=== PATIENT | female | born 1935 | race Two or more races ===

== ENCOUNTER 2021-09-07 07:24 | Inpatient (IN) | payer MEDICARE, MEDICAID ==
[~2021-09-07] VITALS: Ht 162.6 cm; Wt 64.7 kg
[2021-09-07 08:10] LABS: Basophils # (auto) 0.1 10 ^3/uL (0-0.2); Basophils % (auto) 0.7 % (0.0-2.0); Eosinophils # (auto) 0 10 ^3/uL (0-0.8); Eosinophils % (auto) 0.1 % (0.0-7.0); Hematocrit 39.5 % (36.0-46.0); Hemoglobin 13.4 g/dL (12.2-16.2); Lymphocytes % (auto) 12.2 % (10.0-50.0); Mean Corpuscular Hemoglobin 30.6 pg (28.0-32.0); Mean Corpuscular Hgb Conc. 33.9 g/dL (32.0-36.0); Mean Corpuscular Volume 90.2 fL (80.0-100.0); Monocytes % (auto) 12.1 % (0.0-12.0); Neutrophils % (auto) 74.9 % (37.0-80.0); Nucleated Red Blood Cells % 0.1 %; Red Blood Cells 4.37 10^6/uL (4.0-5.20); Red Cell Distribution Width 13.4 % (11.8-14.3)
[2021-09-07 08:27] LABS: Albumin 3.4 g/dL (3.4-5.0); Calcium 7.9 mg/dL (8.5-10.1); Potassium 3.7 mmol/L (3.5-5.1)
[2021-09-07 08:30] LABS: BUN/Creatinine Ratio 14.7; Bilirubin, Total 0.3 mg/dL (0.2-1.0); Total Protein 7.4 g/dL (6.4-8.2)
[2021-09-07] MEDS ORDERED: methylPREDNISolone SOD SUCC 125 MG/2 ML VL IV ONE (09:45)
[2021-09-07] MEDS ORDERED: ALBUTEROL SULF 2.5 MG/0.5ML(0.5%) NEB SOLN NEB ONE (09:45)
[2021-09-07] MEDS ORDERED: IPRATROPIUM BROM 0.5 MG/2.5ML INH SOL NEB ONE (09:45)
[2021-09-07] MEDS ORDERED: IOHEXOL 350 MG/ML 100ML IJ ONE (09:55)
[2021-09-07] MEDS ORDERED: guaiFENesin 200 MG/10 ML UD GT PRN (11:00)
[2021-09-07] MEDS ORDERED: NITROGLYCERIN 0.4 MG SL TAB SL PRN (11:00)
[2021-09-07] MEDS ORDERED: DEXTROSE (50%) 50ML SYRG IV PRN (11:00)
[2021-09-07] MEDS ORDERED: cefTRIAXone 1GM/50ML D5W 50 ML IV ONE (11:00)
[2021-09-07] MEDS ORDERED: ALBUTEROL SULF 2.5 MG/0.5ML(0.5%) NEB SOLN NEB PRN (11:00)
[2021-09-07] MEDS ORDERED: AZITHROMYCIN 500MG/ 250ML 250 ML IV ONE (11:00)
[2021-09-07] MEDS ORDERED: SODIUM CHLORIDE 0.9% 1,000 ML IV ONE (11:00)
[2021-09-07] MEDS ORDERED: MORPHINE SULFATE INJ 2 MG/ml SYRG IV PRN ×2 (11:00)
[2021-09-07 11:21] LABS: Urine Bacteria NONE SEEN /hpf (None Seen); Urine Blood Negative /uL (Negative); Urine WBC <1 /hpf (0 - 5)
[2021-09-07] MEDS: InsuLIN REG 1unit/0.01ml Soln (100units/ml) SC SCH ×3 (13:15→22:00)
[2021-09-07] MEDS: ACCU-CHEK COMFORT CURVE STRIP VI SCH ×3 (13:16→22:00)
[2021-09-07 18:51] VITALS: BP 125/56
[2021-09-07] MEDS: IPRATROPIUM BROM 0.5 MG/2.5ML INH SOL NEB SCH (18:57)
[2021-09-07] MEDS: ALBUTEROL SULF 2.5 MG/0.5ML(0.5%) NEB SOLN NEB SCH (18:57)
[2021-09-08] VITALS (7 sets, daily range): BP systolic 123–156; BP diastolic 53–80
[2021-09-08] MEDS: InsuLIN REG 1unit/0.01ml Soln (100units/ml) SC SCH ×4 (06:07→21:16)
[2021-09-08] MEDS: IPRATROPIUM BROM 0.5 MG/2.5ML INH SOL NEB SCH ×3 (06:16→19:26)
[2021-09-08] MEDS: ALBUTEROL SULF 2.5 MG/0.5ML(0.5%) NEB SOLN NEB SCH ×3 (06:16→19:26)
[2021-09-08] MEDS: ACCU-CHEK COMFORT CURVE STRIP VI SCH ×4 (06:29→21:09)
[2021-09-08 07:06] LABS: Basophils # (auto) 0 10 ^3/uL (0-0.2); Basophils % (auto) 0.1 % (0.0-2.0); Eosinophils # (auto) 0 10 ^3/uL (0-0.8); Hematocrit 40.5 % (36.0-46.0); Hemoglobin 13.4 g/dL (12.2-16.2); Lymphocytes % (auto) 16.4 % (10.0-50.0); Mean Corpuscular Hemoglobin 30.1 pg (28.0-32.0); Mean Corpuscular Hgb Conc. 33.1 g/dL (32.0-36.0); Mean Corpuscular Volume 90.9 fL (80.0-100.0); Monocytes % (auto) 16.5 % (0.0-12.0); Neutrophils # (auto) 4.2 10 ^3/uL (1.6-8.6); Nucleated Red Blood Cells % 0.1 %; Red Blood Cells 4.46 10^6/uL (4.0-5.20); Red Cell Distribution Width 13.8 % (11.8-14.3); White Blood Cell 6.3 10^3/uL (4.4-10.8)
[2021-09-08] MEDS: cefTRIAXone 1GM/50ML D5W 50 ML IV SCH (08:18)
[2021-09-08] MEDS: ENOXAPARIN SOD 40 MG/0.4 ML SYRINGE SC SCH (08:18)
[2021-09-08 08:48] LABS: Albumin 3.1 g/dL (3.4-5.0); Potassium 4.3 mmol/L (3.5-5.1)
[2021-09-08 08:51] LABS: BUN/Creatinine Ratio 24.1; Bilirubin, Total 0.2 mg/dL (0.2-1.0); Total Protein 6.9 g/dL (6.4-8.2)
[2021-09-08] MEDS: AZITHROMYCIN 500MG/ 250ML 250 ML IV SCH (10:07)
[2021-09-08] MEDS ORDERED: FAMOTIDINE 20 MG TAB PO ONE (16:15)
[2021-09-08] MEDS ORDERED: methylPREDNISolone SOD SUCC 125 MG/2 ML VL IV ONE (16:15)
[2021-09-08] MEDS: methylPREDNISolone SOD SUCC 125 MG/2 ML VL IV SCH (21:09)
[2021-09-09 05:00] VITALS: BP_SYST 154
[2021-09-09] MEDS: ACCU-CHEK COMFORT CURVE STRIP VI SCH ×4 (06:12→21:34)
[2021-09-09] MEDS: InsuLIN REG 1unit/0.01ml Soln (100units/ml) SC SCH ×4 (06:14→21:36)
[2021-09-09] MEDS: IPRATROPIUM BROM 0.5 MG/2.5ML INH SOL NEB SCH ×3 (06:18→19:19)
[2021-09-09] MEDS: ALBUTEROL SULF 2.5 MG/0.5ML(0.5%) NEB SOLN NEB SCH ×3 (06:18→19:19)
[2021-09-09 06:34] LABS: Basophils # (auto) 0 10 ^3/uL (0-0.2); Basophils % (auto) 0.1 % (0.0-2.0); Eosinophils # (auto) 0 10 ^3/uL (0-0.8); Hematocrit 39.6 % (36.0-46.0); Hemoglobin 13.2 g/dL (12.2-16.2); Lymphocytes # (auto) 0.5 10 ^3/uL (0.4-5.4); Lymphocytes % (auto) 9.7 % (10.0-50.0); Mean Corpuscular Hemoglobin 30.4 pg (28.0-32.0); Mean Corpuscular Hgb Conc. 33.4 g/dL (32.0-36.0); Mean Corpuscular Volume 90.9 fL (80.0-100.0); Monocytes # (auto) 0.2 10 ^3/uL (0-1.3); Monocytes % (auto) 2.8 % (0.0-12.0); Neutrophils # (auto) 4.8 10 ^3/uL (1.6-8.6); Neutrophils % (auto) 87.4 % (37.0-80.0); Nucleated Red Blood Cells % 0.1 %; Red Blood Cells 4.36 10^6/uL (4.0-5.20); Red Cell Distribution Width 13.7 % (11.8-14.3); White Blood Cell 5.5 10^3/uL (4.4-10.8)
[2021-09-09 06:38] LABS: BUN/Creatinine Ratio 24.1; Calcium 8.2 mg/dL (8.5-10.1); Magnesium 2.4 mg/dL (1.6-2.6); Potassium 4.7 mmol/L (3.5-5.1)
[2021-09-09 09:00] VITALS: BP 125/53
[2021-09-09] MEDS: methylPREDNISolone SOD SUCC 125 MG/2 ML VL IV SCH ×2 (10:07→21:34)
[2021-09-09] MEDS: cefTRIAXone 1GM/50ML D5W 50 ML IV SCH (10:07)
[2021-09-09] MEDS: FAMOTIDINE 20 MG TAB PO SCH (10:08)
[2021-09-09] MEDS: ENOXAPARIN SOD 40 MG/0.4 ML SYRINGE SC SCH (10:08)
[2021-09-09] MEDS: AZITHROMYCIN 500MG/ 250ML 250 ML IV SCH (10:08)
[2021-09-09 13:00] VITALS: BP 137/65
[2021-09-09 17:00] VITALS: BP 146/61
[2021-09-09 21:58] VITALS: BP 141/57
[2021-09-10 05:00] VITALS: BP 138/50
[2021-09-10] MEDS: ALBUTEROL SULF 2.5 MG/0.5ML(0.5%) NEB SOLN NEB SCH ×3 (06:04→18:47)
[2021-09-10] MEDS: IPRATROPIUM BROM 0.5 MG/2.5ML INH SOL NEB SCH ×3 (06:04→18:47)
[2021-09-10] MEDS: ACCU-CHEK COMFORT CURVE STRIP VI SCH ×4 (06:11→21:55)
[2021-09-10] MEDS: InsuLIN REG 1unit/0.01ml Soln (100units/ml) SC SCH ×4 (06:22→22:02)
[2021-09-10 08:00] VITALS: BP 174/70
[2021-09-10] MEDS: cefTRIAXone 1GM/50ML D5W 50 ML IV SCH (09:14)
[2021-09-10] MEDS: hydrALAZINE HCL 20 MG/ML VL IV PRN (09:14)
[2021-09-10 09:45] VITALS: BP 174/70
[2021-09-10] MEDS: methylPREDNISolone SOD SUCC 125 MG/2 ML VL IV SCH ×2 (10:00→21:56)
[2021-09-10] MEDS: FAMOTIDINE 20 MG TAB PO SCH (10:44)
[2021-09-10] MEDS: ENOXAPARIN SOD 40 MG/0.4 ML SYRINGE SC SCH (10:45)
[2021-09-10] MEDS: AZITHROMYCIN 500MG/ 250ML 250 ML IV SCH (10:49)
[2021-09-10 13:00] VITALS: BP 179/84
[2021-09-10] MEDS ORDERED: METOPROLOL TARTRATE 25 MG TAB PO ONE (14:00)
[2021-09-10] MEDS: METOPROLOL TARTRATE 25 MG TAB PO SCH (21:56)
[2021-09-10 22:00] VITALS: BP 137/51
[2021-09-10 23:51] VITALS: BP 134/50
[2021-09-11] MEDS: hydrALAZINE HCL 20 MG/ML VL IV PRN (04:48)
[2021-09-11 05:00] VITALS: BP 157/78
[2021-09-11] MEDS: InsuLIN REG 1unit/0.01ml Soln (100units/ml) SC SCH ×4 (06:24→21:34)
[2021-09-11] MEDS: ACCU-CHEK COMFORT CURVE STRIP VI SCH ×4 (06:37→21:29)
[2021-09-11] MEDS: IPRATROPIUM BROM 0.5 MG/2.5ML INH SOL NEB SCH ×3 (06:40→18:07)
[2021-09-11] MEDS: ALBUTEROL SULF 2.5 MG/0.5ML(0.5%) NEB SOLN NEB SCH ×3 (06:40→18:06)
[2021-09-11 08:00] VITALS: BP 157/61
[2021-09-11] MEDS: methylPREDNISolone SOD SUCC 125 MG/2 ML VL IV SCH ×2 (09:59→21:34)
[2021-09-11] MEDS: cefTRIAXone 1GM/50ML D5W 50 ML IV SCH (09:59)
[2021-09-11] MEDS: AZITHROMYCIN 250 MG TAB PO SCH (10:00)
[2021-09-11] MEDS: FAMOTIDINE 20 MG TAB PO SCH (10:00)
[2021-09-11] MEDS: METOPROLOL TARTRATE 25 MG TAB PO SCH ×2 (10:00→21:40)
[2021-09-11] MEDS: ENOXAPARIN SOD 40 MG/0.4 ML SYRINGE SC SCH (10:47)
[2021-09-11 12:00] VITALS: BP 112/64
[2021-09-11 16:29] VITALS: BP 151/67
[2021-09-12] MEDS: IPRATROPIUM BROM 0.5 MG/2.5ML INH SOL NEB SCH ×3 (06:20→18:10)
[2021-09-12] MEDS: ALBUTEROL SULF 2.5 MG/0.5ML(0.5%) NEB SOLN NEB SCH ×3 (06:20→18:10)
[2021-09-12] MEDS: ACCU-CHEK COMFORT CURVE STRIP VI SCH ×3 (06:40→17:28)
[2021-09-12] MEDS: InsuLIN REG 1unit/0.01ml Soln (100units/ml) SC SCH ×3 (06:41→17:28)
[2021-09-12] MEDS: hydrALAZINE HCL 20 MG/ML VL IV PRN (06:44)
[2021-09-12] MEDS: METOPROLOL TARTRATE 25 MG TAB PO SCH (08:48)
[2021-09-12] MEDS: methylPREDNISolone SOD SUCC 125 MG/2 ML VL IV SCH (08:48)
[2021-09-12] MEDS: cefTRIAXone 1GM/50ML D5W 50 ML IV SCH (08:48)
[2021-09-12] MEDS: FAMOTIDINE 20 MG TAB PO SCH (08:49)
[2021-09-12] MEDS: AZITHROMYCIN 250 MG TAB PO SCH (08:49)
[2021-09-12] MEDS: ENOXAPARIN SOD 40 MG/0.4 ML SYRINGE SC SCH (08:49)
[2021-09-12 09:00] VITALS: BP 128/57
[2021-09-12 13:00] VITALS: BP 145/73
[2021-09-12] MEDS ORDERED: METH4PAK PO (14:29)
[2021-09-12] MEDS ORDERED: AZIT250T PO (14:29)
[2021-09-12 17:00] VITALS: BP 152/72
[2021-09-12 17:48] VITALS: BP 140/80
== END 2021-09-12 19:19 | disposition home or self-care (01) | DRG 139 ==
LOC: ER 07:24 → TELE 10:46 → TELE-CENTR 19:55
PROVIDERS: ADMIT Registered Nurse; ATTEND Internal Medicine Geriatric Medicine
DX: J18.9 Pneumonia, unspecified organism (principal); J96.01 Acute respiratory failure with hypoxia; J44.1 Chronic obstructive pulmonary disease with (acute) exacerbation; J98.11 Atelectasis; E11.22 Type 2 diabetes mellitus with diabetic chronic kidney disease; E11.65 Type 2 diabetes mellitus with hyperglycemia; I12.9 Hypertensive chronic kidney disease with stage 1 through stage 4 chronic kidney disease, or unspecified chronic kidney disease; N18.2 Chronic kidney disease, stage 2 (mild); N28.89 Other specified disorders of kidney and ureter; E87.3 Alkalosis; E78.5 Hyperlipidemia, unspecified; F17.200 Nicotine dependence, unspecified, uncomplicated; J44.0 Chronic obstructive pulmonary disease with (acute) lower respiratory infection; Z79.4 Long term (current) use of insulin
CPT/HCPCS: 36415; 36600; 71045; 71275; 80048; 80053; 81001; 82805; 82962; 83605; 83735; 83880; 84484; 85025; 85379; 87040; 93005; 93970; 94640; 96365; 96367; 96375; G0378; J0696; J1815

== ENCOUNTER 2022-07-02 12:01 | Emergency (ER) | payer MEDICAID, MEDICARE ==
[~2022-07-02] VITALS: Ht 157.5 cm; Wt 69.4 kg
[~2022-07-02 12:01] MED LIST: AZIT250T PO; METH4PAK PO
[2022-07-02 14:05] VITALS: BP 164/72
[2022-07-02] MEDS ORDERED: HYDROcodone-ACET 5/325MG TAB PO ONE (15:00)
[2022-07-02] MEDS ORDERED: TRAM-297 PO (16:26)
== END 2022-07-02 16:27 | disposition home or self-care (01) ==
LOC: ER 12:01
DX: S42.342A Displaced spiral fracture of shaft of humerus, left arm, initial encounter for closed fracture (principal); S52.502A Unspecified fracture of the lower end of left radius, initial encounter for closed fracture; S52.615A Nondisplaced fracture of left ulna styloid process, initial encounter for closed fracture; J45.909 Unspecified asthma, uncomplicated; E11.9 Type 2 diabetes mellitus without complications; I10 Essential (primary) hypertension; W18.09XA Striking against other object with subsequent fall, initial encounter; Y93.89 Activity, other specified; Y92.89 Other specified places as the place of occurrence of the external cause; Y99.8 Other external cause status
CPT/HCPCS: 29105; 73060; 73100; 82962

== ENCOUNTER 2024-03-23 10:24 | Inpatient (IN) | payer MEDICARE, MEDICAID ==
[~2024-03-23] VITALS: Ht 167.6 cm; Wt 69.9 kg
[~2024-03-23 10:24] MED LIST changes: +AZIT-74 PO; -AZIT250T PO; +TRAM-297 PO
--- NOTE | 2024-03-23 11:20 | ECG ---
[facility] Test Date: 2024-03-23 Test Time: 11:06:50 Pat Name: SKY HELLER Department: ER Room: 0240T Gender: F [employer] Bi Developer: GP : 1935 Requested By: ATUL MARCIAL Order Number: [id number] Reading MD: Lester Caceres Measurements Intervals [place] Rate: 90 P: 64 WI: 140 QRS: 51 QRSD: 82 T: 13 QT: 360 QTc: 441 Interpretive Statements Sinus rhythm Abnormal R-wave progression, early transition Electronically Signed On 03-25-2024 10:25:38 PST by Lester Caceres Please click the below link to view image of tracing.
--- NOTE | 2024-03-23 12:26 | DVH ---
EXAM: CT HEAD WITHOUT CONTRAST HISTORY: aloc COMPARISON: CT ANGIO CHEST CONTRAST on DOS: 09/07/21 TECHNIQUE: Axial images of the head were obtained and reformatted in coronal and sagittal planes. All CT scans at this medical facility are performed using dose modulation techniques as appropriate t o a performed exam including the following: Automated exposure control was utilized; adjustment of th e MA and/or KV according to patient size; and use of iterative reconstruction technique. CT Dose: CTDI volume is 51.29 mGy. Dose-length product is 908.39 mGy*cm FINDINGS: There is no evidence of acute intracranial hemorrhage, mass, mass effect midline shift. There is no h ydrocephalus or extra-axial fluid collection. There are patchy hypodense changes in the supratentori al white matter compatible with chronic small-vessel ischemic changes. Steiner-white matter differentiat ion is maintained. There is moderate opacification of the left maxillary sinus. The remaining visualized paranasal sinus es and mastoid air cells are clear. The calvarium is intact. IMPRESSION: 1. No acute intracranial process. HS:Y
--- NOTE | 2024-03-23 12:27 | ED.PDOC ---
History of Present Illness HPI Comments 89-year-old female who comes in with chief complaint of epistaxis last week. The patient was went to [facility] for epistaxis x2 on the same day after the patient's bleeding was stopped and then restarted at home. Over the past week, the patient was become more confused and has had e pisodes of bleeding. Upon arrival to the emergency department's, the patient was no longer bleeding but seems to be very confused. The patient denies any fever or chills. Other than this, the patient was unable to give us much of a medical history. The patient was scheduled to see her primary care doctor on Thursday. The patient also seems to have new onset dementia. There has been no nausea, vomiting or diarrhea. Currently, the patient was on 4 L of oxygen nasal cannula for asthma. Chief Complaint: Nose Bleed Time Seen by MD: 11:34 Primary Care Provider: UNKNOWN Reviewed Notes: Nurses Notes, Medications, Allergies (No allergies to medications) Allergies: Coded Allergies: NO KNOWN ALLERGIES (Unverified , 09/07/21) Home Meds Reported Medications Pravastatin Sodium (PRAVACHOL TABLET) 20 Mg Tb, 2 TAB PO QPM, #90 TAB 1 Refill 03/23/24 Losartan Potassium (Losartan Potassium) 25 Mg Tab, PO 03/23/24 Albuterol Sulfate (Albuterol Sulfate Hfa) 108 Mcg/Act Aer, 1 INH Q4HPRN PRN 03/23/24 Famotidine (PEPCID TABLET) 20 Mg Tb, 1 TAB PO DAILY 03/23/24 Insulin Glargine (Basaglar Kwikpen) 100 Unit/Ml Inj, 10 UNITS SC DAILY 03/23/24 Metoprolol Tartrate (Lopressor) 25 Mg Tb, 1 TAB PO DAILY 03/23/24 Aspirin (Aspirin Low Dose) 81 Mg Tab, 1 TAB PO DAILY 03/23/24 Metformin Hydrochloride (Metformin Hcl) 500 Mg Tab, 1 TAB PO BID 03/23/24 Empagliflozin (Jardiance) 25 Mg Tab, 1 TAB PO DAILY 03/23/24 Memantine Hydrochloride (Memantine HCl) 10 Mg Tab, 1 TAB PO BID 03/23/24 Discontinued Scripts Tramadol Hcl (Ultram) 50 Mg Tab, 1 TAB PO TID, #20 TAB Prov:ELISABETH TURCIOS 07/02/22 Azithromycin (Zithromax) 250 Mg Tab, 250 MG PO Q24H for 6 Days, #6 TAB Prov:TIMOTHY MCKEON MD 09/12/21 Methylprednisolone (Medrol Dosepak) 4 Mg [place], 4 MG PO UD, #21 TAB UAD Prov:TIMOTHY MCKEON MD 09/12/21 Information Source: Relative Mode of Arrival: Wheelchair Severity: Moderate Timing: Days Duration: Since onset Prehospital treatment: None Associated signs and symptoms Associated epistaxis and confusion Past Medical History PAST MEDICAL HISTORY: Asthma, Dementia, DM, High Lipids, HTN Surgical History (Other): Eye surgery HOUSE CLEANER History: Denies all HOUSE CLEANER Hx Family History Family History: Reviewed,noncontributory to illness Social History Smoker: Non-Smoker Alcohol: Denies ETOH Use Drugs: Denies Drug Use Lives In: Home Constitutional: denies: chills, diaphoresis, fatigue, fever, malaise, sweats, weakness, others EENTM: reports: nose bleeding; denies: blurred vision, double vision, ear bleeding, ear discharge, ear drainage, ear pain, ear ringing, eye pain, eye redness, hearing loss, mouth pain, mouth swelling, nasal discharge, nose conges tion, nose pain, photophobia, tearing, throat pain, throat swelling, voice changes, others Respiratory: denies: cough, hemoptysis, orthopnea, SOB at rest, shortness of breath, SOB with excertion, stridor, wheezing, others Cardiovascular: denies: chest pain, dizzy spells, diaphoresis, Dyspnea on exertion, edema, irregular heart beat, left arm pain, lightheadedness, palpitations, PND, syncope, others Gastrointestinal: denies: abdomen distended, abdominal pain, blood streaked bowels, constipated, diarrhea, dysphagia, difficulty swallowing, hematemesis, melena, nausea, poor appetite, poor fluid intake, rectal bleeding, rectal pain, vomiting, others Genitourinary: denies: abnormal vagina bleeding, burning, dyspareunia, dysuria, flank pain, frequency, hematuria, incontinence, pain, , vagina disc harge, urgency, others Neurological: reports: others (Confusion); denies: dizziness, fainting, headache, left sided numbness, left sided weakness, numbness, paresthesia, pre- existing deficit, right sided numbness, right sided weakness, seizure, speech problems, tingling, tremors, weakness Musculoskeletal: denies: back pain, gout, joint pain, joint swelling, muscle pain, muscle stiffness, neck pain, others Integumetry: denies: bruises, change in color, change in hair/nails, dryness, laceration, lesions, lumps, rash, wounds, others Allergic/Immunocompromised: denies: Difficulty Healing, Frequent Infections, Hives, Itching, others Hematologic/Lymphatic: denies: anemia, blood clots, easy bleeding, easy bruising, swollen glands, others Endocrine: denies: excessive hunger, excessive sweating, excessive thirst, excessive urination, flushing, intolerance to cold, intolerance to heat, unexplained weight gain, unexplained weight loss, others Psychiatric: denies: anxiety, bipolar disorder, depression, hopeless, panic disorder, schizophrenia, sleepless, suicidal, others Physical Exam General Appearance: Moderate Distress, Other (The patient was confused) HEENT: Normal ENT Inspection, Pharynx Normal, TMs Normal, Other (No sign of any epistaxis at this time) Neck: Full Range of Motion, Non-Tender, Normal, Normal Inspection Respiratory: Chest Non-Tender, Lungs Clear, No Accessory Muscle Use, No Respiratory Distress, Normal Breath Sounds Cardiovascular: No Edema, No JVD, No Murmur, No Gallop, Normal Peripheral Pulses, Regular Rate/Rhythm Breast Exam: Deferred Gastrointestinal: No Organomegaly, Non Tender, No Pulsatile Mass, Normal Bowel Sounds, Soft Genitalia: Deferred Pelvic: Deferred Rectal: Deferred Extremities: No calf tenderness, Normal capillary refill, Normal inspection, Normal range of motion, Non-tender, No pedal edema Musculoskeletal : Apperance: Normal 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 Was a procedure done?: No EKG EKG : Pulse Rate (adult): 90 [place]: Normal Cardiac Rhythm: NSR Block: None ST: Nonsp Differential Dx Considerations may include: CVA, generalized weakness, epistaxis, anemia, dementia, electrolyte imbalance, hepatic encephalopathy X-Ray, Labs, Meds, VS Vital Signs Date Time Temp Pulse Resp B/P (MAP) Pulse Ox O2 Delivery O2 Flow Rate FiO2 03/23/24 14:30 105 15 100/46 (64) 100 03/23/24 12:48 100 03/23/24 12:30 103 22 99 Nasal Cannula* 4 36 03/23/24 12:30 99.6 103 22 118/57 (77) 99 99.6 03/23/24 12:27 90 03/23/24 11:06 90 03/23/24 10:58 97.3 100 16 129/105 (113) 84 Lab Test 03/23/24 14:00 03/23/24 13:07 03/23/24 10:56 Range/Units Urine Color Yellow Yellow Urine Clarity Clear Clear Urine pH 5.0 5.0-9.0 Urine Specific [place] 1.023 1.001-1.035 Urine Protein Negative Negative Urine Ketones Negative Negative Urine Blood Negative Negative /uL Urine Nitrite Negative Negative Urine Bilirubin Negative Negative Urine Urobilinogen 2 H Negative mg/dL Urine Leukocyte Esterase Negative Negative /uL Urine RBC <1 0 - 4 /hpf Urine WBC 2 0 - 5 /hpf Urine Squamous Epithelial Cells None seen <5 /hpf Urine Bacteria None seen None Seen /hpf Urine Glucose 4+ H Normal mg/dL White Blood Count 13.0 H 4.4-10.8 10^3/uL Red Blood Count 2.58 L 4.0-5.20 10^6/uL Hemoglobin 7.5 L 12.2-16.2 g/dL Hematocrit 24.1 L 36.0-46.0 % Mean Corpuscular Volume 93.2 80.0-100.0 fL Mean Corpuscular Hemoglobin 29.2 28.0-32.0 pg Mean Corpuscular Hemoglobin Concent 31.3 L 32.0-36.0 g/dL Red Cell Distribution Width 14.1 11.8-14.3 % Platelet Count 337 140-450 10^3/uL Mean Platelet Volume 7.0 6.9-10.8 fL Neutrophils (%) (Auto) 80.7 H 37.0-80.0 % Lymphocytes (%) (Auto) 5.1 L 10.0-50.0 % Monocytes (%) (Auto) 13.6 H 0.0-12.0 % Eosinophils (%) (Auto) 0.3 0.0-7.0 % Basophils (%) (Auto) 0.3 0.0-2.0 % Neutrophils # (Auto) 10.5 H 1.6-8.6 10 ^3/uL Lymphocytes # (Auto) 0.7 0.4-5.4 10 ^3/uL Monocytes # (Auto) 1.8 H 0-1.3 10 ^3/uL Eosinophils # (Auto) 0 0-0.8 10 ^3/uL Basophils # (Auto) 0 0-0.2 10 ^3/uL Nucleated Red Blood Cells 0.3 % Prothrombin Time 11.3 9.3-11.8 sec Prothrombin Time INR 1.07 0.9-1.15 Activated Partial Thromboplast Time 25.5 24.5-34.5 SEC Sodium Level 138 136-145 mmol/L Potassium Level 4.5 3.5-5.1 mmol/L Chloride Level 105 98-107 mmol/L Carbon Dioxide Level 27 20-31 mmol/L Anion Gap 6 5-15 Blood Urea Nitrogen 23 9-23 mg/dL Creatinine 0.92 0.550-1.02 mg/dL Glomerular Filtration Rate Calc 60 >90 mL/min BUN/Creatinine Ratio 25.0 H 10.0-20.0 Serum Glucose 225 H 74-106 mg/dL Calcium Level 9.0 8.7-10.4 mg/dL Total Bilirubin 0.4 0.2-1.0 mg/dL Aspartate Amino Transferase (AST) 26 13-40 U/L Alanine Aminotransferase (ALT) 18 7-40 U/L Alkaline Phosphatase 82 46-116 U/L Ammonia < 10 L 11-32 umol/L Total Protein 6.4 5.7-8.2 g/dL Albumin 3.7 3.2-4.8 g/dL POC Glucose 232 H 70-106 mg/dl CT scan of the head is negative IV Hep-Lock was established The patient[place] [id number] The rest of the CBC and the chemistry panel is within normal limits except for hyperglycemia at 225 The urine test is negative for infection At this time, the patient is being admitted The patient was having increased bouts of confusion Images Reviewed?: Images reviewed and evaluated by me Time of 1ST Reevaluation: 12:37 Reevaluation 1ST: Unchanged Patient Education/Counseling: Other (The patient was confused) Family Education/Counseling: Diagnosis, Treatment, Prognosis Departure 1 Departure Time of Disposition: 15:13 Impression: Primary Impression: Confusion Additional Impressions: Generalized weakness Hyperglycemia Disposition: 09 ADMITTED INPATIENT Admit to: Tele Condition: Fair Critical Care Note Critical Care Time?: No Stability Stability form required: Yes Unstable for transfer: Telemetry monitoring (Telemetry monitoring required), ED Physician Assesment (Clinical assesment) Heart Score Heart Score: Heart Score Response (Comments) Value History N/A 0 EKG N/A 0 Age N/A 0 Risk Factors N/A 0 Troponin N/A 0 Total 0 SANTIAGO BLAIR MD Mar 23, 2024 12:27
[2024-03-23 12:30] VITALS: PULSE 103; RESP 22; O2SAT 99
[2024-03-23 13:24] LABS: Basophils # (auto) 0 10 ^3/uL (0-0.2); Basophils % (auto) 0.3 % (0.0-2.0); Eosinophils # (auto) 0 10 ^3/uL (0-0.8); Eosinophils % (auto) 0.3 % (0.0-7.0); Hematocrit 24.1 % (36.0-46.0); Hemoglobin 7.5 g/dL (12.2-16.2); Lymphocytes # (auto) 0.7 10 ^3/uL (0.4-5.4); Lymphocytes % (auto) 5.1 % (10.0-50.0); Mean Corpuscular Hemoglobin 29.2 pg (28.0-32.0); Mean Corpuscular Hgb Conc. 31.3 g/dL (32.0-36.0); Mean Corpuscular Volume 93.2 fL (80.0-100.0); Monocytes # (auto) 1.8 10 ^3/uL (0-1.3); Monocytes % (auto) 13.6 % (0.0-12.0); Neutrophils # (auto) 10.5 10 ^3/uL (1.6-8.6); Neutrophils % (auto) 80.7 % (37.0-80.0); Nucleated Red Blood Cells % 0.3 %; Platelet Count (auto) 337 10^3/uL (140-450); Red Blood Cells 2.58 10^6/uL (4.0-5.20); Red Cell Distribution Width 14.1 % (11.8-14.3)
[2024-03-23 13:42] LABS: INR 1.07 (0.9-1.15); Partial Thromboplastin Time 25.5 SEC (24.5-34.5); Prothrombin Time 11.3 sec (9.3-11.8)
[2024-03-23 13:43] LABS: Alanine Aminotransferase 18 U/L (7-40); Albumin 3.7 g/dL (3.2-4.8); Alkaline Phosphatase 82 U/L (46-116); Anion Gap 6 (5-15); Aspartate Aminotransferase 26 U/L (13-40); Bilirubin, Total 0.4 mg/dL (0.2-1.0); Carbon Dioxide 27 mmol/L (20-31); Chloride 105 mmol/L (98-107); Potassium 4.5 mmol/L (3.5-5.1); Sodium 138 mmol/L (136-145); Total Protein 6.4 g/dL (5.7-8.2)
[2024-03-23 13:50] LABS: Blood Urea Nitrogen 23 mg/dL (9-23); Glucose 225 mg/dL (74-106)
[2024-03-23] MEDS ORDERED: NITROGLYCERIN 0.4 MG SL TAB SL PRN (14:45)
[2024-03-23] MEDS ORDERED: MORPHINE SULFATE INJ 2 MG/ml SYRG IV PRN (14:45)
[2024-03-23] MEDS ORDERED: ONDANSETRON HCL 4 MG/2 ML VIAL IV PRN (14:45)
[2024-03-23] MEDS ORDERED: DOCUSATE SOD 100 MG CAP PO PRN (14:45)
[2024-03-23] MEDS ORDERED: METF-370 PO (14:48)
[2024-03-23] MEDS ORDERED: ASPI-325 PO (14:48)
[2024-03-23] MEDS ORDERED: EMPA1TAB3 PO (14:48)
[2024-03-23] MEDS ORDERED: PRAV20TA3 PO (14:48)
[2024-03-23] MEDS ORDERED: FAMO20TA10 PO (14:48)
[2024-03-23] MEDS ORDERED: ALBU108A5 INH (14:48)
[2024-03-23] MEDS ORDERED: LOS25T PO (14:48)
[2024-03-23] MEDS ORDERED: INSU1INJ19 SC (14:48)
[2024-03-23] MEDS ORDERED: MET25T PO (14:48)
[2024-03-23] MEDS ORDERED: MEMA1TAB5 PO (14:48)
[2024-03-23] MEDS ORDERED: IPRATROPIUM BROM 0.5 MG/2.5ML INH SOL NEB PRN ×2 (15:00→16:45)
[2024-03-23] MEDS ORDERED: ALBUTEROL SULF 2.5 MG/0.5ML(0.5%) NEB SOLN NEB PRN ×2 (15:00→16:45)
[2024-03-23 15:01] LABS: Urine Bacteria None Seen /hpf (None Seen)
--- NOTE | 2024-03-23 15:02 | DVHHP2 ---
History of Present Illness Reason for Visit: Nose bleeds, increased confusion History of Present Illness Sharlene Lezama is an 89-year-old female with past medical history of hypertension, hyperlipidemia, diabetes, dementia, home oxygen, and asthma, who was brought in by her son for nose bleeds and confusion. Per the patient's son, the patient was diagnosed with dementia about 2 years ago. She is typically able to care for herself with her ADLs in the house. These last couple of days her confusion has increased to the point where she does not always recognize her son, and she is not able to get herself to the restroom. He also states that she started having nose bleeds last Thursday. He called EMS, they were able to stop the bleeding. She had another nose bleed on Thursday that was worse. EMS came again and this time she went to [facility], and was seen in the ER and sent home. Yesterday he states she had another nose bleed that was worse, but he was able to control and stop the bleeding on his own. Patient is also noted to have a significant cough, with rhonchi noted. 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 Endocrine: Diabetes Past Surgical History: None Family History: None Smoke: No ALCOHOL: none Drugs: None Lives: with Family Domestic Violence: Neg Review of Systems Constitutional: Yes: Weakness, Malaise; No: Fever, Chills, Sweats, Other Eyes: No: Pain, Vision change, Conjunctivae inflammation, Eyelid inflammation, Other, Redness ENT: Other (epitaxis); No: Ear pain, Ear discharge, Nose pain, Nose discharge, Nose congestion, Mouth pain, Mouth swelling, Throat pain, Throat swelling Respiratory: Cough, Sputum, Wheezing; No: Dry, Shortness of breath, SOB with excertion, Wheezing, Hemoptysis, Pleuritic Pain, Other Cardiovascular: No: Chest Pain, Palpitations, Orthopnea, Paroxysmal Noc. Dyspnea, Edema, Lt Headedness, Other Gastrointestinal: No: Nausea, Vomiting, Abdominal Pain, Diarrhea, Constipation, Melena, Hematochezia, Other Genitourinary: No Dysuria, No Frequency, No Incontinence, No Hematuria, No Retention, No Other Musculoskeletal: No: other, neck pain, shoulder pain, arm pain, back pain, hand pain, leg pain, foot pain Skin: No: Rash, Lesions, Jaundice, Bruising, Other Neurological: Weakness, Confusion; No: Numbness, Incoordination, Change in speech, Seizures, Other Allergies: Coded Allergies: NO KNOWN ALLERGIES (Unverified , 09/07/21) Exam Vital Signs Vital Signs Date Time Temp Pulse Resp B/P (MAP) Pulse Ox O2 Delivery O2 Flow Rate FiO2 03/23/24 14:30 105 15 100/46 (64) 100 03/23/24 12:30 Nasal Cannula* 4 36 03/23/24 12:30 99.6 99.6 General Appearance: Alert, Cooperative, mild distress, Other (Oriented x 0 patient can tell me her name, not her date of , unable to answer any other orientation questions) HEENT: Atraumatic, PERRLA Respiratory: Other (Productive cough, rhonchi, wheezing on auscultation) Cardiovascular: Regular rate, Normal S1, Normal S2 Abdominal: Normal bowel sounds, Soft, No tenderness Extremities: No clubbing, No cyanosis, No edema, Normal pulses Skin: No rashes, No breakdown, No significant lesion Neuro: Normal gait, Normal speech, Strength at 5/5 X4 ext Psych/Mental Status: Mental status NL, Mood NL Labs/Xrays Labs Test 03/23/24 13:07 03/23/24 10:56 Range/Units White Blood Count 13.0 H 4.4-10.8 10^3/uL Red Blood Count 2.58 L 4.0-5.20 10^6/uL Hemoglobin 7.5 L 12.2-16.2 g/dL Hematocrit 24.1 L 36.0-46.0 % Mean Corpuscular Volume 93.2 80.0-100.0 fL Mean Corpuscular Hemoglobin 29.2 28.0-32.0 pg Mean Corpuscular Hemoglobin Concent 31.3 L 32.0-36.0 g/dL Red Cell Distribution Width 14.1 11.8-14.3 % Platelet Count 337 140-450 10^3/uL Mean Platelet Volume 7.0 6.9-10.8 fL Neutrophils (%) (Auto) 80.7 H 37.0-80.0 % Lymphocytes (%) (Auto) 5.1 L 10.0-50.0 % Monocytes (%) (Auto) 13.6 H 0.0-12.0 % Eosinophils (%) (Auto) 0.3 0.0-7.0 % Basophils (%) (Auto) 0.3 0.0-2.0 % Neutrophils # (Auto) 10.5 H 1.6-8.6 10 ^3/uL Lymphocytes # (Auto) 0.7 0.4-5.4 10 ^3/uL Monocytes # (Auto) 1.8 H 0-1.3 10 ^3/uL Eosinophils # (Auto) 0 0-0.8 10 ^3/uL Basophils # (Auto) 0 0-0.2 10 ^3/uL Nucleated Red Blood Cells 0.3 % Prothrombin Time 11.3 9.3-11.8 sec Prothrombin Time INR 1.07 0.9-1.15 Activated Partial Thromboplast Time 25.5 24.5-34.5 SEC Sodium Level 138 136-145 mmol/L Potassium Level 4.5 3.5-5.1 mmol/L Chloride Level 105 98-107 mmol/L Carbon Dioxide Level 27 20-31 mmol/L Anion Gap 6 5-15 Blood Urea Nitrogen 23 9-23 mg/dL Creatinine 0.92 0.550-1.02 mg/dL Glomerular Filtration Rate Calc 60 >90 mL/min BUN/Creatinine Ratio 25.0 H 10.0-20.0 Serum Glucose 225 H 74-106 mg/dL Calcium Level 9.0 8.7-10.4 mg/dL Total Bilirubin 0.4 0.2-1.0 mg/dL Aspartate Amino Transferase (AST) 26 13-40 U/L Alanine Aminotransferase (ALT) 18 7-40 U/L Alkaline Phosphatase 82 46-116 U/L Ammonia < 10 L 11-32 umol/L Total Protein 6.4 5.7-8.2 g/dL Albumin 3.7 3.2-4.8 g/dL POC Glucose 232 H 70-106 mg/dl EXAM: CT HEAD WITHOUT CONTRAST FINDINGS: There is no evidence of acute intracranial hemorrhage, mass, mass effect midline shift. There is no hydrocephalus or extra-axial fluid collection. There are patchy hypodense changes in the supratentorial white matter compatible with chronic small-vessel ischemic changes. Steiner-white matter differentiation is maintained. There is moderate opacification of the left maxillary sinus. The remaining visu alized paranasal sinuses and mastoid air cells are clear. The calvarium is intact. IMPRESSION: 1. No acute intracranial process. 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 Procedure Category Date Status Time Chest Xray 1 View XY 03/23/24 Logged 14:37 Urine Bacterial ELDON 03/23/24 Logged Culture 14:37 Admit ADMIT 03/23/24 Transmitted 14:38 Code Status CODE 03/23/24 Transmitted 14:38 2 Gm Sodium Diet DIET 03/23/24 Transmitted Dinner Sodium Chloride Lock PHA 03/23/24 Logged (Saline Lock Ns) 22:00 Ondansetron Hcl PHA 03/23/24 Logged (Zofran) 14:45 Docusate Sodium PHA 03/23/24 Logged Capsule (Colace 14:45 Fall Risk Precautions BANNER 03/23/[address] 14:38 Complete Blood Count LAB 03/24/24 Verified 04:00 Comprehensive LAB 03/24/24 Verified Metabolic Panel 04:00 Condition: Serious MICKY 03/23/24 In Process 14:38 Acetaminophen Tablet PHA 03/23/24 Logged (Tylenol Tablet) 14:45 Nitroglycerin PHA 03/23/24 Logged Sublingual (Ntrostat 14:45 Morphine Sulfate PHA 03/23/24 Logged Injection 14:45 Stat Ekg For Chest BANNER 03/23/24 In Process Pain 14:38 Notify Md Of Changes BANNER 03/23/24 In Process From Base 14:38 Graduate Student For BANNER 03/23/24 In Process 24 Hours 14:38 Emergency Dysrhythmia MICKY 03/23/24 In Process Protocol 14:38 Rhythm Strips Once MICKY 03/23/24 In Process Every Shift 14:38 Oxygen By Nasal RT 03/23/24 Transmitted Cannula 14:38 Aspirin Enteric PHA 03/24/24 Logged Coated Tablet 10:00 Famotidine Tablet PHA 03/24/24 Logged (Pepcid Tablet) 10:00 Losartan Tablet PHA 03/24/24 Logged (Cozaar Tablet) 10:00 Metformin PHA 03/23/24 Logged Hydrochloride 22:00 Metoprolol Tartrate PHA 03/24/24 Logged Tablet (Lopressor Ta 10:00 Pravastatin Sodium PHA 03/23/24 Logged Tablet (Pravachol Tab 18:00 (Nf) Empagliflozin PHA 03/24/24 Logged (Jardiance) 10:00 (Nf) Insulin Glargine PHA 03/24/24 Logged (Basaglar Kwikpen) 10:00 (Nf) Memantine PHA 03/23/24 Logged Hydrochloride 22:00 Respiratory Culture ELDON 03/23/24 Transmitted W/ Gs 14:51 Date of Service: Mar 23, 2024 Billing Provider: KAVITA ROUSE Common Visit Codes: [id number] INP/OBS CARE (MOD) KAVITA ROUSE Mar 23, 2024 15:02
[2024-03-23 15:04] LABS: Urine Blood Negative /uL (Negative); Urine Clarity Clear (Clear); Urine Color Yellow (Yellow); Urine Protein, UAD Negative (Negative); Urine Specific Gravity 1.023 (1.001-1.035); Urine Urobilinogen 2 mg/dL (Negative); Urine WBC 2 /hpf (0 - 5)
[2024-03-23 15:30] VITALS: BP 94/37; PULSE 103; RESP 20; TEMP 99.6; O2SAT 98
--- NOTE | 2024-03-23 15:48 | DVH ---
EXAM: XY CHEST XRAY 1 VIEW TECHNIQUE: Single frontal chest radiograph CLINICAL HISTORY: shortness of breath COMPARISON: CXRP on DOS: 09/08/21, CHEST PORTABLE on DOS: 09/08/21, CHEST PORTABLE on DOS: 09/07/21 Findings/Impression: Frontal chest radiograph demonstrates no acute osseous or superficial soft tissue abnormalities. The trachea is midline. The cardiac silhouette and mediastinum are within normal limits. Coarsened interstitial markings. Left upper lung field opacity. Small to moderate left pleural effusion with compressive atelectasis. A superimposed infectious proce ss is not excluded. No pneumothorax.
[2024-03-23] MEDS ORDERED: DEXTROSE (50%) 50ML SYRG IV PRN (16:45)
[2024-03-23] MEDS: metFORMIN HYDROCHLORIDE 500 MG TAB PO SCH (17:35)
[2024-03-23] MEDS: AZITHROMYCIN 500MG/ 250ML 250 ML IV ONE (17:35)
[2024-03-23] MEDS: ACCU-CHEK COMFORT CURVE STRIP VI SCH (17:36)
[2024-03-23] MEDS: InsuLIN REG 1unit/0.01ml Soln (100units/ml) SC SCH ×2 (17:43→22:52)
[2024-03-23] MEDS: PRAVASTATIN SODIUM 20 MG TAB PO SCH (22:46)
[2024-03-23] MEDS: MEMANTINE HCL 5 MG TAB PO SCH (22:47)
[2024-03-23] MEDS: methylPREDNISolone SOD SUCC 40 MG/ML VL IV SCH (22:47)
[2024-03-23] MEDS: SODIUM CHLOR 0.9% PF (SALINE LOCK) 10ML VIAL/SYR IV SCH (22:52)
[2024-03-24] VITALS (13 sets, daily range): BP systolic 105–128; BP diastolic 37–56; PULSE 80–105; RESP 16–22; TEMP 97.4–98.4; O2SAT 93–99
[2024-03-24 04:33] LABS: Hematocrit 21.4 % (36.0-46.0); Mean Corpuscular Hemoglobin 29.5 pg (28.0-32.0); Mean Corpuscular Hgb Conc. 32.1 g/dL (32.0-36.0); Mean Corpuscular Volume 91.9 fL (80.0-100.0); Platelet Count (auto) 362 10^3/uL (140-450); Red Blood Cells 2.33 10^6/uL (4.0-5.20); Red Cell Distribution Width 13.9 % (11.8-14.3)
[2024-03-24 04:49] LABS: Alanine Aminotransferase 18 U/L (7-40); Albumin 3.6 g/dL (3.2-4.8); Alkaline Phosphatase 96 U/L (46-116); Anion Gap 7 (5-15); Aspartate Aminotransferase 26 U/L (13-40); Calcium 8.9 mg/dL (8.7-10.4); Carbon Dioxide 26 mmol/L (20-31); Chloride 104 mmol/L (98-107); Potassium 4.6 mmol/L (3.5-5.1); Sodium 137 mmol/L (136-145)
[2024-03-24 04:50] LABS: Bilirubin, Total 0.3 mg/dL (0.2-1.0); Total Protein 6.2 g/dL (5.7-8.2)
[2024-03-24 04:51] LABS: Blood Urea Nitrogen 27 mg/dL (9-23); Glucose 250 mg/dL (74-106)
[2024-03-24 05:05] LABS: Hemoglobin 6.9 g/dL (12.2-16.2)
[2024-03-24 05:08] LABS: Band Neutrophils % (manual) 0; Basophils % (manual) 0 (0.0-2.0); Blast Cells 0; Eosinophils % (manual) 0 (0-7); Metamyelocytes % 0; Myelocytes % 0; Promyelocytes % 0; Reactive Lymphocytes 0
[2024-03-24 05:34] LABS: Lymphocytes % (manual) 1 (10.0-50.0); Monocytes % (manual) 1 (0-12); Target Cell FEW
[2024-03-24 05:35] LABS: Platelet Estimate Adequate
[2024-03-24] MEDS: ACETAMINOPHEN 325 MG TAB PO PRN (08:40)
[2024-03-24] MEDS: ASPirin-EC 81 mg tab PO SCH (09:27)
[2024-03-24] MEDS: FAMOTIDINE 20 MG TAB PO SCH (09:28)
[2024-03-24] MEDS: AZITHROMYCIN 500MG/ 250ML 250 ML IV SCH (09:29)
[2024-03-24] MEDS: LOSARTAN POTASSIUM 25 MG TAB PO SCH (10:00)
[2024-03-24] MEDS: METOPROLOL TARTRATE 25 MG TAB PO SCH (10:00)
[2024-03-24] MEDS: INSULIN LANTUS (GLARGINE) 1 /0.01ml (100units/ml) SC SCH (10:09)
--- NOTE | 2024-03-24 13:34 | DVHPN2 ---
Reviewed: Care Plan, H&P, Labs, Medications, Previous Orders, Radiology Changes from previous H/P or p: No Changes Eyes: No Pain, No Vision change, No Conjunctivae inflammation, No Eyelid inflammation, No Other, No Redness ENT: No Ear pain, No Ear discharge, No Nose pain, No Nose discharge, No Nose congestion, No Mouth pain, No Mouth swelling, No Throat pain, No Throat swelling; Other (epitaxis) Cardiovascular: No Chest Pain, No Palpitations, No Orthopnea, No Paroxysmal Noc. Dyspnea, No Edema, No Lt Headedness, No Other Respiratory: Cough; No Dry, No Shortness of breath, No SOB with excertion, No Wheezing, No Hemoptysis, No Pleuritic Pain; Sputum; No Other Gastrointestinal: No Nausea, No Vomiting, No Abdominal Pain, No Diarrhea, No Constipation, No Melena, No Hematochezia, No Other Genitourinary: No Dysuria, No Frequency, No Incontinence, No Hematuria, No Retention, No Other Musculoskeletal: No other, No neck pain, No shoulder pain, No arm pain, No back pain, No hand pain, No leg pain, No foot pain Skin: No Rash, No Lesions, No Jaundice, No Bruising, No Other Objective Vitals Vital Signs Date Time Temp Pulse Resp B/P (MAP) Pulse Ox O2 Delivery O2 Flow Rate FiO2 03/24/24 12:05 98.2 96 21 126/53 98.2 03/24/24 09:06 98 03/24/24 05:00 Nasal Cannula* 2 28 Intake/Output Intake and Output 03/24/24 07:00 Intake Total 250 ml Balance 250 ml Intake IV Total 250 ml Medications Current Medications Medications Dose Ordered Sig/Bradley Route Start Time Stop Time Status Last Admin Dose Admin Sodium Chloride 10 ml Q8HR IV 03/23/24 22:00 03/24/24 06:45 10 ML Ondansetron HCl 4 mg Q4HP PRN IV 03/23/24 14:45 Docusate Sodium 100 mg BIDPRN PRN PO 03/23/24 14:45 Acetaminophen 650 mg Q6HP PRN PO 03/23/24 14:45 03/24/24 08:40 650 MG Nitroglycerin 0.4 mg Q5MINP PRN SL 03/23/24 14:45 Morphine Sulfate 2 mg Q30M PRN IV 03/23/24 14:45 Aspirin 81 mg DAILY PO 03/24/24 10:00 03/24/24 09:27 81 MG Famotidine 20 mg DAILY PO 03/24/24 10:00 03/24/24 09:28 20 MG Losartan Potassium 25 mg DAILY PO 03/24/24 10:00 Metformin HCl 500 mg IBID PO 03/23/24 18:00 03/24/24 08:39 500 MG Metoprolol Tartrate 25 mg DAILY PO 03/24/24 10:00 Pravastatin Sodium 40 mg HS PO 03/23/24 22:00 03/23/24 22:46 40 MG Patient Own Medication 1 tab DAILY PO 03/24/24 10:00 Insulin Glargine 10 units DAILY SC 03/24/24 10:00 03/24/24 10:09 10 UNITS Memantine 10 mg BID PO 03/23/24 22:00 03/24/24 09:28 10 MG Azithromycin 250 ml @ 125 mls/hr DAILY IV 03/24/24 10:00 03/24/24 09:29 125 MLS/HR Albuterol 2.5 mg Q4HPRN PRN NEB 03/23/24 16:45 Ipratropium [place] 0.5 mg Q4HPRN PRN NEB 03/23/24 16:45 Methylprednisolone Sodium Succinate 40 mg BID IV 03/23/24 22:00 03/24/24 09:28 40 MG Diagnostic Test (Pha) 1 strip ACHS 03/23/24 17:00 03/24/24 11:30 1 STRIP Insulin Human Regular HS SC 03/23/24 22:00 03/23/24 22:52 3 UNITS Insulin Human Regular AC SC 03/23/24 17:00 03/24/24 12:38 12 UNITS Dextrose 50 ml UD PRN IV 03/23/24 16:45 Laboratory Results Laboratory Tests 03/24/24 03:35 Chemistry Test 03/24/24 03:35 Albumin 3.6 g/dL (3.2-4.8) Calcium Level 8.9 mg/dL (8.7-10.4) Total Protein 6.2 g/dL (5.7-8.2) LFT Test 03/24/24 03:35 Alanine Aminotransferase (ALT) 18 U/L (7-40) Alkaline Phosphatase 96 U/L (46-116) Aspartate Amino Transferase (AST) 26 U/L (13-40) Total Bilirubin 0.3 mg/dL (0.2-1.0) Urinalysis Test 03/23/24 14:00 Urine Color Yellow (Yellow) Urine Clarity Clear (Clear) Urine pH 5.0 (5.0-9.0) Urine Specific [place] 1.023 (1.001-1.035) Urine Protein Negative (Negative) Urine Ketones Negative (Negative) Urine Blood Negative /uL (Negative) Urine Nitrite Negative (Negative) Urine Bilirubin Negative (Negative) Urine Urobilinogen 2 mg/dL (Negative) H Urine Leukocyte Esterase Negative /uL (Negative) Urine RBC <1 /hpf (0 - 4) Urine WBC 2 /hpf (0 - 5) Urine Squamous Epithelial Cells None seen /hpf (<5) Urine Bacteria None seen /hpf (None Seen) Urine Glucose 4+ mg/dL (Normal) H Microbiology Microbiology Date/Time Source Procedure Growth Status 03/23/24 14:00 Voided Urine Urine Culture - Preliminary Resulted Labs and/or images reviewed: Labs reviewed by me, Image(s) reviewed by me Assessment/Plan Assessment/Plan Severe Anemia hemoglobin 6.9: 1 unit RBC transfusion given, GI consult to rule out GI cause for anemia Recurrent epistaxis unknown reason INR normal Acute metabolic encephalopathy Pleural effusion, Sepsis secondary to pneumonia: Rocephin azithromycin Hyperglycemia, Diabetes, : Insulin sliding scale Dementia, Hypertension, Hyperlipidemia, Time Spent 65 minutes Patient is full code Advanced care planning time 20 minutes Prognosis poor Plan discussed with: Patient Date of Service: Mar 24, 2024 Billing Provider: LULU LOPEZ MD Common Visit Codes: [id number] CARE 30-74 MIN LULU LOPEZ MD Mar 24, 2024 13:34
--- NOTE | 2024-03-24 15:04 | MEDREC ---
[facility] Intervention Section I [facility] Intervention: Review courses of therapy (BASED ON ELEVATED WBC, LOW BP AND CHEST X-RAY FROM 03/23, POSSIBLE CONCERN FOR PNA. PLEASE CONSIDER ADDING ROCEPHIN IN ADDITION TO AZITHROMYCIN. ) BRYCE MENJIVAR PHARMACIST Mar 24, 2024 15:04
--- NOTE | 2024-03-24 21:08 | DVHINCON2 ---
Date of service: Mar 24, 2024 Referring Physician Skyler Schneider MD Reason for Consultation Acute hypoxic respiratory failure, pneumonia History of Present Illness An 89-year-old woman with past medical history of diabetes, hypertension, hyperlipidemia, diabetes, dementia, and asthma, on home oxygen, who was brought in by her son to ED on 03/23/24 for nosebleeds and confusion. Per the patient's son, the patient was diagnosed with dementia about 2 years ago. She is typically able to manage ADLs on her own. These last couple of days her confusion has increased to the point where she does not always recognize her son, and she is not able to get herself to the restroom. Son also reports nosebleeds starting last Thursday. EMS were called, they were able to stop the bleeding. She had another nosebleed on Thursday that was worse. EMS came again and this time she went to [facility], and was seen in the ER and sent home. Yesterday pt had another nosebleed that was worse, but son was able to control and stop the bleeding. Patient was also noted to have a significant cough with rhonchi. She was admitted for further care and pulmonary consultation is requested for evaluation and management due to the above findings. Review of Systems: 14-point review of systems negative unless otherwise noted above. Past Medical History: Diabetes, hypertension, hyperlipidemia, diabetes, dementia, and asthma, on home oxygen Past Surgical History: None. Medications: Reviewed. Allergies: No known drug allergies. Family History: Significant for cancer. Social History: Nonsmoker. No alcohol or illicit drug use. Family History: FHx: cancer Allergies: Coded Allergies: NO KNOWN ALLERGIES (Unverified , 09/07/21) Home Meds Reported Medications Pravastatin Sodium (PRAVACHOL TABLET) 20 Mg Tb, 2 TAB PO QPM, #90 TAB 1 Refill 03/23/24 Losartan Potassium (Losartan Potassium) 25 Mg Tab, PO 03/23/24 Albuterol Sulfate (Albuterol Sulfate Hfa) 108 Mcg/Act Aer, 1 INH Q4HPRN PRN 03/23/24 Famotidine (PEPCID TABLET) 20 Mg Tb, 1 TAB PO DAILY 03/23/24 Insulin Glargine (Basaglar Kwikpen) 100 Unit/Ml Inj, 10 UNITS SC DAILY 03/23/24 Metoprolol Tartrate (Lopressor) 25 Mg Tb, 1 TAB PO DAILY 03/23/24 Aspirin (Aspirin Low Dose) 81 Mg Tab, 1 TAB PO DAILY 03/23/24 Metformin Hydrochloride (Metformin Hcl) 500 Mg Tab, 1 TAB PO BID 03/23/24 Empagliflozin (Jardiance) 25 Mg Tab, 1 TAB PO DAILY 03/23/24 Memantine Hydrochloride (Memantine HCl) 10 Mg Tab, 1 TAB PO BID 03/23/24 Discontinued Scripts Tramadol Hcl (Ultram) 50 Mg Tab, 1 TAB PO TID, #20 TAB Prov:ELISABETH TURCIOS 07/02/22 Azithromycin (Zithromax) 250 Mg Tab, 250 MG PO Q24H for 6 Days, #6 TAB Prov:TIMOTHY MCKEON MD 09/12/21 Methylprednisolone (Medrol Dosepak) 4 Mg [place], 4 MG PO UD, #21 TAB UAD Prov:TIMOTHY MCKEON MD 09/12/21 Current Medications Current Medications Medications (Trade) Dose Ordered Sig/Bradley Route PRN Reason Start Time Stop Time Status Last Admin Sodium Chloride (Saline Lock Ns) 10 ml Q8HR IV 03/23/24 22:00 03/24/24 14:00 Aspirin (Ecotrin Enteric Coated Tablet) 81 mg DAILY PO 03/24/24 10:00 03/24/24 09:27 Famotidine (Pepcid Tablet) 20 mg DAILY PO 03/24/24 10:00 03/24/24 09:28 Losartan Potassium (Cozaar Tablet) 25 mg DAILY PO 03/24/24 10:00 Metoprolol Tartrate (Lopressor Tablet) 25 mg DAILY PO 03/24/24 10:00 Pravastatin Sodium (Pravachol Tablet) 40 mg HS PO 03/23/24 22:00 03/23/24 22:46 Patient Own Medication 1 tab DAILY PO 03/24/24 10:00 Insulin Glargine (Lantus) 10 units DAILY SC 03/24/24 10:00 03/24/24 10:09 Memantine (Namenda Tablet) 10 mg BID PO 03/23/24 22:00 03/24/24 09:28 Azithromycin 250 ml @ 125 mls/hr DAILY IV 03/24/24 10:00 03/24/24 09:29 Methylprednisolone Sodium Succinate (Solu Medrol) 40 mg BID IV 03/23/24 22:00 03/24/24 09:28 Insulin Human Regular (InsuLIN R) HS SC 03/23/24 22:00 03/23/24 22:52 Vital Signs Vital Signs Date Time Temp Pulse Resp B/P (MAP) Pulse Ox O2 Delivery O2 Flow Rate FiO2 03/24/24 17:15 97.4 84 18 106/51 (69) 98 97.4 03/24/24 07:30 Nasal Cannula* 2 28 Physical Exam Gen.: Patient lying in bed in no apparent distress. On supplemental oxygen. Head: Normocephalic, atraumatic. Eyes: EOMI/PERRLA. Ears: Normal hearing. Normal anatomy. Neck/trachea: Trachea midline, supple. Nose: Normal external anatomy. Mouth: Moist mucous membranes. Chest: Decreased air entry bilaterally. No wheezing or rhonchi. Cardiovascular: Positive S1, positive S2. Regular rate and rhythm. Abdomen: Positive bowel sounds in all 4 quadrants. Soft, non-tender, non- distended. : Deferred. Rectal: Deferred. Skin: Warm, dry. Intact. Extremities: 2+ radial pulses bilaterally. No lower extremity edema. Neuro: Awake, alert, oriented x3. No gross motor or sensory deficits. Cranial nerves II through XII intact. Gait not assessed. Labs/Diagnostic Data Labs Test 03/24/24 17:17 03/24/24 03:35 03/23/24 14:00 03/23/24 13:07 Range/Units POC Glucose 239 H 70-106 mg/dl White Blood Count 12.0 H 4.4-10.8 10^3/uL Red Blood Count 2.33 L 4.0-5.20 10^6/uL Hemoglobin 6.9 *L 12.2-16.2 g/dL Hematocrit 21.4 #L 36.0-46.0 % Mean Corpuscular Volume 91.9 80.0-100.0 fL Mean Corpuscular Hemoglobin 29.5 28.0-32.0 pg Mean Corpuscular Hemoglobin Concent 32.1 32.0-36.0 g/dL Red Cell Distribution Width 13.9 11.8-14.3 % Platelet Count 362 140-450 10^3/uL Mean Platelet Volume 6.8 L 6.9-10.8 fL Neutrophils (%) (Auto) 37.0-80.0 % Lymphocytes (%) (Auto) 10.0-50.0 % Monocytes (%) (Auto) 0.0-12.0 % Basophils (%) (Auto) 0.0-2.0 % Neutrophils # (Auto) 1.6-8.6 10 ^3/uL Lymphocytes # (Auto) 0.4-5.4 10 ^3/uL Monocytes # (Auto) 0-1.3 10 ^3/uL Differential Total Cells Counted 100.0 100 Neutrophils % (Manual) 98 H 37.0-80.0 Band Neutrophils % (Manual) 0 Lymphocytes % (Manual) 1 L 10.0-50.0 Monocytes % (Manual) 1 0-12 Eosinophils % (Manual) 0 0-7 Basophils % (Manual) 0 0.0-2.0 Metamyelocytes % (manual) 0 Myelocytes % (Manual) 0 Promyelocytes % (Manual) 0 Blast Cells % (Manual) 0 Reactive Lymphocytes 0 Platelet Estimate Adequate Target Cells Few Sodium Level 137 136-145 mmol/L Potassium Level 4.6 3.5-5.1 mmol/L Chloride Level 104 98-107 mmol/L Carbon Dioxide Level 26 20-31 mmol/L Anion Gap 7 5-15 Blood Urea Nitrogen 27 H 9-23 mg/dL Creatinine 0.87 0.550-1.02 mg/dL Glomerular Filtration Rate Calc 64 >90 mL/min BUN/Creatinine Ratio 31.0 H 10.0-20.0 Serum Glucose 250 H 74-106 mg/dL Calcium Level 8.9 8.7-10.4 mg/dL Total Bilirubin 0.3 0.2-1.0 mg/dL Aspartate Amino Transferase (AST) 26 13-40 U/L Alanine Aminotransferase (ALT) 18 7-40 U/L Alkaline Phosphatase 96 46-116 U/L Total Protein 6.2 5.7-8.2 g/dL Albumin 3.6 3.2-4.8 g/dL Urine Color Yellow Yellow Urine Clarity Clear Clear Urine pH 5.0 5.0-9.0 Urine Specific [place] 1.023 1.001-1.035 Urine Protein Negative Negative Urine Ketones Negative Negative Urine Blood Negative Negative /uL Urine Nitrite Negative Negative Urine Bilirubin Negative Negative Urine Urobilinogen 2 H Negative mg/dL Urine Leukocyte Esterase Negative Negative /uL Urine RBC <1 0 - 4 /hpf Urine WBC 2 0 - 5 /hpf Urine Squamous Epithelial Cells None seen <5 /hpf Urine Bacteria None seen None Seen /hpf Urine Glucose 4+ H Normal mg/dL Eosinophils (%) (Auto) 0.3 0.0-7.0 % Eosinophils # (Auto) 0 0-0.8 10 ^3/uL Basophils # (Auto) 0 0-0.2 10 ^3/uL Nucleated Red Blood Cells 0.3 % Prothrombin Time 11.3 9.3-11.8 sec Prothrombin Time INR 1.07 0.9-1.15 Activated Partial Thromboplast Time 25.5 24.5-34.5 SEC Hemoglobin A1c 7.5 H <5.7 % A1C Ammonia < 10 L 11-32 umol/L Microbiology Date/Time Source Procedure Growth Status 03/23/24 14:00 Voided Urine Urine Culture - Preliminary Resulted Assessment Impression: Acute hypoxic respiratory failure Pneumonia Epistaxis, recurrent Anemia Pleural effusion, right Atelectasis Leukocytosis Plan: Supplemental oxygen 2 LPM NC Titrate to keep O2 sats above 92%. Taper O2 as tolerated. CXR demonstrates small to moderate left pleural effusion with compressive at electasis. Continue antibiotics Follow up cultures 1 unit PRBC transfused Monitor hemoglobin Monitor WBC Monitor renal function. Monitor electrolytes. Supplement as necessary. Monitor ins and outs. DVT prophylaxis. Prognosis: Poor given patient's multiple co-morbidities. Rest of plan per hospitalist and other consultants. Thank you, Dr. Schneider, for allowing me to participate in this patient's care. Further recommendations will depend on the patient's clinical course. Please do not hesitate to contact me if you have any questions or concerns. This medical document was created using an electronic medical record system with [employer] dictation system. Although these documentations are being carefully reviewed, there may still be some phonetic and typographical changes. The errors are purely typographical, due to imperfection on the software program, and do not reflect any compromise in the patient's medical care. Plan discussed with: Patient, Other (Katrin Johnson/MD Schneider) OPAL TOVAR MD Mar 24, 2024 21:08
--- NOTE | 2024-03-24 23:08 | DVHPN2 ---
Progress Note - Dictate Date Seen: Mar 24, 2024 Medical Necessity Reason Pt with a Central, PICC or Fol: No Subjective Patient seen and examined at bedside. Remains on supplemental oxygen Overnight events reviewed. vital signs Vital Sign Date Time Temp Pulse Resp B/P (MAP) Pulse Ox O2 Delivery O2 Flow Rate FiO2 03/24/24 21:00 98.3 99 19 113/37 (62) 93 98.3 03/24/24 07:30 Nasal Cannula* 2 28 Total Intake and Output 03/23/24 03/23/24 03/24/24 14:59 22:59 06:59 Intake Total 250 ml Balance 250 ml medications Current Medications Medications Dose Ordered Sig/Bradley Route Start Time Stop Time Status Last Admin Dose Admin Sodium Chloride 10 ml Q8HR IV 03/23/24 22:00 03/24/24 22:22 10 ML Ondansetron HCl 4 mg Q4HP PRN IV 03/23/24 14:45 Docusate Sodium 100 mg BIDPRN PRN PO 03/23/24 14:45 Acetaminophen 650 mg Q6HP PRN PO 03/23/24 14:45 03/24/24 08:40 650 MG Nitroglycerin 0.4 mg Q5MINP PRN SL 03/23/24 14:45 Morphine Sulfate 2 mg Q30M PRN IV 03/23/24 14:45 Aspirin 81 mg DAILY PO 03/24/24 10:00 03/24/24 09:27 81 MG Famotidine 20 mg DAILY PO 03/24/24 10:00 03/24/24 09:28 20 MG Losartan Potassium 25 mg DAILY PO 03/24/24 10:00 Metformin HCl 500 mg IBID PO 03/23/24 18:00 03/24/24 18:13 500 MG Metoprolol Tartrate 25 mg DAILY PO 03/24/24 10:00 Pravastatin Sodium 40 mg HS PO 03/23/24 22:00 03/24/24 22:21 40 MG Patient Own Medication 1 tab DAILY PO 03/24/24 10:00 Insulin Glargine 10 units DAILY SC 03/24/24 10:00 03/24/24 10:09 10 UNITS Memantine 10 mg BID PO 03/23/24 22:00 03/24/24 22:21 10 MG Azithromycin 250 ml @ 125 mls/hr DAILY IV 03/24/24 10:00 03/24/24 09:29 125 MLS/HR Albuterol 2.5 mg Q4HPRN PRN NEB 03/23/24 16:45 Ipratropium [place] 0.5 mg Q4HPRN PRN NEB 03/23/24 16:45 Methylprednisolone Sodium Succinate 40 mg BID IV 03/23/24 22:00 03/24/24 22:21 40 MG Diagnostic Test (Pha) 1 strip ACHS 03/23/24 17:00 03/24/24 22:22 1 STRIP Insulin Human Regular HS SC 03/23/24 22:00 03/24/24 22:21 8 UNITS Insulin Human Regular AC SC 03/23/24 17:00 03/24/24 18:13 6 UNITS Dextrose 50 ml UD PRN IV 03/23/24 16:45 objective Gen.: Patient lying in bed in no apparent distress. On supplemental oxygen. Head: Normocephalic, atraumatic. Eyes: EOMI/PERRLA. Ears: Normal hearing. Normal anatomy. Neck/trachea: Trachea midline, supple. Nose: Normal external anatomy. Mouth: Moist mucous membranes. Chest: Decreased air entry bilaterally. No wheezing or rhonchi. Cardiovascular: Positive S1, positive S2. Regular rate and rhythm. Abdomen: Positive bowel sounds in all 4 quadrants. Soft, non-tender, non- distended. : Deferred. Rectal: Deferred. Skin: Warm, dry. Intact. Extremities: 2+ radial pulses bilaterally. No lower extremity edema. Neuro: Awake, alert, oriented x3. No gross motor or sensory deficits. Cranial nerves II through XII intact. Gait not assessed. laboratory and microbiology Laboratory Tests 03/24/24 03:35 Test 03/24/24 03:35 Range/Units Serum Glucose 250 H 74-106 mg/dL Assessment/Plan Impression: Acute hypoxic respiratory failure Pneumonia Epistaxis, recurrent Anemia Pleural effusion Atelectasis Leukocytosis Plan: Supplemental oxygen 2 LPM NC Titrate to keep O2 sats above 92%. Taper O2 as tolerated. CXR demonstrates small to moderate left pleural effusion with compressive atelectasis. Continue antibiotics Follow up cultures s/p 1 unit PRBC on 03/23/24 Monitor hemoglobin Monitor renal function. Monitor electrolytes. Supplement as necessary. Monitor ins and outs. DVT prophylaxis. Prognosis: Poor given patient's multiple co-morbidities. Rest of plan per hospitalist and other consultants. Thank you, Dr. Schneider, for allowing me to participate in this patient's care. Further recommendations will depend on the patient's clinical course. Please do not hesitate to contact me if you have any questions or concerns. This medical document was created using an electronic medical record system with [employer] dictation system. Although these documentations are being carefully reviewed, there may still be some phonetic and typographical changes. The errors are purely typographical, due to imperfection on the software program, and do not reflect any compromise in the patient's medical care. OPAL TOVAR MD Mar 24, 2024 23:08
[2024-03-25] VITALS (10 sets, daily range): BP systolic 116–140; BP diastolic 43–63; PULSE 86–111; RESP 16–20; TEMP 97.6–98.3; O2SAT 91–97
--- NOTE | 2024-03-25 11:04 | DVHPN2 ---
Reviewed: Care Plan, H&P, Labs, Medications, Previous Orders, Radiology Changes from previous H/P or p: No Changes Eyes: No Pain, No Vision change, No Conjunctivae inflammation, No Eyelid inflammation, No Other, No Redness ENT: No Ear pain, No Ear discharge, No Nose pain, No Nose discharge, No Nose congestion, No Mouth pain, No Mouth swelling, No Throat pain, No Throat swelling; Other (epitaxis) Cardiovascular: No Chest Pain, No Palpitations, No Orthopnea, No Paroxysmal Noc. Dyspnea, No Edema, No Lt Headedness, No Other Respiratory: Cough; No Dry, No Shortness of breath, No SOB with excertion, No Wheezing, No Hemoptysis, No Pleuritic Pain; Sputum; No Other Gastrointestinal: No Nausea, No Vomiting, No Abdominal Pain, No Diarrhea, No Constipation, No Melena, No Hematochezia, No Other Genitourinary: No Dysuria, No Frequency, No Incontinence, No Hematuria, No Retention, No Other Musculoskeletal: No other, No neck pain, No shoulder pain, No arm pain, No back pain, No hand pain, No leg pain, No foot pain Skin: No Rash, No Lesions, No Jaundice, No Bruising, No Other Objective Vitals Vital Signs Date Time Temp Pulse Resp B/P (MAP) Pulse Ox O2 Delivery O2 Flow Rate FiO2 03/25/24 10:00 101 106/40 03/25/24 05:00 98.0 20 94 98.0 03/24/24 20:34 Nasal Cannula* 2 28 Intake/Output Intake and Output 03/25/24 07:00 Intake Total 1675 ml Balance 1675 ml Intake Oral 1125 ml IV Total 250 ml Blood Product 300 ml # Voids 4 Medications Current Medications Medications Dose Ordered Sig/Bradley Route Start Time Stop Time Status Last Admin Dose Admin Sodium Chloride 10 ml Q8HR IV 03/23/24 22:00 03/25/24 06:28 10 ML Ondansetron HCl 4 mg Q4HP PRN IV 03/23/24 14:45 Docusate Sodium 100 mg BIDPRN PRN PO 03/23/24 14:45 Acetaminophen 650 mg Q6HP PRN PO 03/23/24 14:45 03/24/24 08:40 650 MG Nitroglycerin 0.4 mg Q5MINP PRN SL 03/23/24 14:45 Morphine Sulfate 2 mg Q30M PRN IV 03/23/24 14:45 Aspirin 81 mg DAILY PO 03/24/24 10:00 03/25/24 10:34 81 MG Famotidine 20 mg DAILY PO 03/24/24 10:00 03/25/24 10:34 20 MG Losartan Potassium 25 mg DAILY PO 03/24/24 10:00 Metformin HCl 500 mg IBID PO 03/23/24 18:00 03/25/24 06:32 500 MG Metoprolol Tartrate 25 mg DAILY PO 03/24/24 10:00 Pravastatin Sodium 40 mg HS PO 03/23/24 22:00 03/24/24 22:21 40 MG Patient Own Medication 1 tab DAILY PO 03/24/24 10:00 Insulin Glargine 10 units DAILY SC 03/24/24 10:00 03/24/24 10:09 10 UNITS Memantine 10 mg BID PO 03/23/24 22:00 03/25/24 10:35 10 MG Azithromycin 250 ml @ 125 mls/hr DAILY IV 03/24/24 10:00 03/25/24 10:34 125 MLS/HR Albuterol 2.5 mg Q4HPRN PRN NEB 03/23/24 16:45 Ipratropium [place] 0.5 mg Q4HPRN PRN NEB 03/23/24 16:45 Methylprednisolone Sodium Succinate 40 mg BID IV 03/23/24 22:00 03/25/24 10:33 40 MG Diagnostic Test (Pha) 1 strip ACHS 03/23/24 17:00 03/25/24 06:33 1 STRIP Insulin Human Regular HS SC 03/23/24 22:00 03/24/24 22:21 8 UNITS Insulin Human Regular AC SC 03/23/24 17:00 03/25/24 06:32 6 UNITS Dextrose 50 ml UD PRN IV 03/23/24 16:45 Laboratory Results Laboratory Tests 03/24/24 03:35 Urinalysis Test 03/23/24 14:00 Urine Color Yellow (Yellow) Urine Clarity Clear (Clear) Urine pH 5.0 (5.0-9.0) Urine Specific [place] 1.023 (1.001-1.035) Urine Protein Negative (Negative) Urine Ketones Negative (Negative) Urine Blood Negative /uL (Negative) Urine Nitrite Negative (Negative) Urine Bilirubin Negative (Negative) Urine Urobilinogen 2 mg/dL (Negative) H Urine Leukocyte Esterase Negative /uL (Negative) Urine RBC <1 /hpf (0 - 4) Urine WBC 2 /hpf (0 - 5) Urine Squamous Epithelial Cells None seen /hpf (<5) Urine Bacteria None seen /hpf (None Seen) Urine Glucose 4+ mg/dL (Normal) H Microbiology Microbiology Date/Time Source Procedure Growth Status 03/23/24 14:00 Voided Urine Urine Culture - Preliminary Resulted Labs and/or images reviewed: Labs reviewed by me, Image(s) reviewed by me Assessment/Plan Assessment/Plan Severe Anemia hemoglobin 6.9: 1 unit RBC transfusion given, GI consult to rule out GI cause for anemia Recurrent epistaxis unknown reason INR normal Acute metabolic encephalopathy Pleural effusion, Sepsis secondary to pneumonia: Rocephin azithromycin, consult by Dr. Atwood. Appreciated Hyperglycemia, Diabetes, : Insulin sliding scale Dementia, Hypertension, Hyperlipidemia, Time Spent 55 minutes Patient is full code Advanced care planning time 20 minutes Prognosis poor Son Matias [phone] at bedside Plan discussed with: Patient My Orders Orders - LULU LOPEZ MD Procedure Category Date Status Time * Gi [facility] [employer] CONS 03/24/24 Transmitted 13:31 * Wound Consult CONS 03/24/24 Transmitted Pt Request For Service PT 03/25/24 Logged 09:06 Complete Blood Count LAB 03/25/24 Transmitted 10:59 Date of Service: Mar 25, 2024 Billing Provider: LULU LOPEZ MD Common Visit Codes: [id number] INP/OBS CARE(HIGH) LULU LOPEZ MD Mar 25, 2024 11:04
--- NOTE | 2024-03-25 13:02 | DVHINCON2 ---
GI Consult Consult Note GI consult note Date of Consultation: 03/25/2024 Chief Complaint: Severe anemia Referring Physician: Dr. Heavenly Lopez H&P: 89-year-old Lithuanian-speaking female admitted with epistaxis History and translation by son at bedside. Patient has history of dementia Patient is started with nosebleeds about one-week ago, status post treated at [facility], bleeding restarted two days ago, and patient presented to [facility]. No nosebleed at this time No abdominal pain. No nausea or vomiting. Patient had dark stool few days ago, none now Patient is started with history of GERD, about 1-2 months ago, treated with famotidine that is helping Patient is started on aspirin. 81 mg 2-3 months ago no other blood thinners No EGD or colonoscopy in past Past Medical History: Asthma, Dementia, DM, High Lipids, HTN Past Surgical History: Eye surgery Social History: NO smoking, drinking ETOH and use of illegal drugs. Family History: Noncontributory Review of Systems: Constitutional: no fever, chill, weight loss Heart: no chest pain, no chest pressure Lung: no cough, no dyspnea with exertion Abdomen: see HPI Physical exam: General: NAD, AAOX3 Chest: lung clark clear to auscultation Heart: RRR, no murmur Abdomen: non-distended, no tenderness to palpation, +BS Labs: Urinalysis Test 03/23/24 14:00 Urine Color Yellow (Yellow) Urine Clarity Clear (Clear) Urine pH 5.0 (5.0-9.0) Urine Specific [place] 1.023 (1.001-1.035) Urine Protein Negative (Negative) Urine Ketones Negative (Negative) Urine Blood Negative /uL (Negative) Urine Nitrite Negative (Negative) Urine Bilirubin Negative (Negative) Urine Urobilinogen 2 mg/dL (Negative) H Urine Leukocyte Esterase Negative /uL (Negative) Urine RBC <1 /hpf (0 - 4) Urine WBC 2 /hpf (0 - 5) Urine Squamous Epithelial Cells None seen /hpf (<5) Urine Bacteria None seen /hpf (None Seen) Urine Glucose 4+ mg/dL (Normal) H Microbiology Microbiology Date/Time Source Procedure Growth Status 03/23/24 14:00 Voided Urine Urine Culture - Preliminary Resulted Labs and/or images reviewed: Labs reviewed by me, Image(s) reviewed by me Imaging: Assessment: Severe anemia possible secondary to epistaxis Epistaxis History of dementia Plan: Discussed with Dr. Peterson Monitor labs Hold aspirin Recommended iron supplement or IV iron replacement as needed Possible outpatient referral for ENT recommended We will continue to monitor the patient Discussed plan with patient, son at bedside, and RN Thank you for this consult Date of Service: Mar 25, 2024 Billing Provider: ALEJO LOPEZ Common Visit Codes: CONSULT ONLY Consultation Codes: [id number] CONSULT <60MIN ALEJO LOPEZ Mar 25, 2024 13:02
[2024-03-25 13:25] LABS: Basophils # (auto) 0 10 ^3/uL (0-0.2); Eosinophils # (auto) 0 10 ^3/uL (0-0.8); Hemoglobin 8.1 g/dL (12.2-16.2); Lymphocytes # (auto) 0.5 10 ^3/uL (0.4-5.4); Monocytes # (auto) 0.9 10 ^3/uL (0-1.3)
[2024-03-25 13:27] LABS: Basophils % (auto) 0.2 % (0.0-2.0); Hematocrit 25.5 % (36.0-46.0); Lymphocytes % (auto) 3.4 % (10.0-50.0); Mean Corpuscular Hemoglobin 28.9 pg (28.0-32.0); Mean Corpuscular Hgb Conc. 31.9 g/dL (32.0-36.0); Mean Corpuscular Volume 90.5 fL (80.0-100.0); Monocytes % (auto) 6.5 % (0.0-12.0); Neutrophils # (auto) 12.4 10 ^3/uL (1.6-8.6); Neutrophils % (auto) 89.9 % (37.0-80.0); Nucleated Red Blood Cells % 0.3 %; Platelet Count (auto) 486 10^3/uL (140-450); Red Blood Cells 2.82 10^6/uL (4.0-5.20); Red Cell Distribution Width 14.5 % (11.8-14.3); White Blood Cell 13.8 10^3/uL (4.4-10.8)
--- NOTE | 2024-03-25 22:07 | DVHPN2 ---
Progress Note - Dictate Date Seen: Mar 25, 2024 Medical Necessity Reason Pt with a Central, PICC or Fol: No Subjective Patient seen and examined at bedside. Remains on supplemental oxygen Overnight events reviewed. vital signs Vital Sign Date Time Temp Pulse Resp B/P (MAP) Pulse Ox O2 Delivery O2 Flow Rate FiO2 03/25/24 21:53 98.2 103 18 140/62 (88) 95 98.2 03/25/24 20:00 Nasal Cannula* 2 28 Total Intake and Output 03/24/24 03/24/24 03/25/24 15:00 23:00 07:00 Intake Total 550 ml 325 ml 800 ml Balance 550 ml 325 ml 800 ml medications Current Medications Medications Dose Ordered Sig/Bradley Route Start Time Stop Time Status Last Admin Dose Admin Sodium Chloride 10 ml Q8HR IV 03/23/24 22:00 03/25/24 18:38 10 ML Ondansetron HCl 4 mg Q4HP PRN IV 03/23/24 14:45 Docusate Sodium 100 mg BIDPRN PRN PO 03/23/24 14:45 Acetaminophen 650 mg Q6HP PRN PO 03/23/24 14:45 03/24/24 08:40 650 MG Nitroglycerin 0.4 mg Q5MINP PRN SL 03/23/24 14:45 Morphine Sulfate 2 mg Q30M PRN IV 03/23/24 14:45 Famotidine 20 mg DAILY PO 03/24/24 10:00 03/25/24 10:34 20 MG Losartan Potassium 25 mg DAILY PO 03/24/24 10:00 Metformin HCl 500 mg IBID PO 03/23/24 18:00 03/25/24 18:39 500 MG Metoprolol Tartrate 25 mg DAILY PO 03/24/24 10:00 Pravastatin Sodium 40 mg HS PO 03/23/24 22:00 03/25/24 21:41 40 MG Patient Own Medication 1 tab DAILY PO 03/24/24 10:00 Insulin Glargine 10 units DAILY SC 03/24/24 10:00 03/25/24 12:10 10 UNITS Memantine 10 mg BID PO 03/23/24 22:00 03/25/24 21:41 10 MG Azithromycin 250 ml @ 125 mls/hr DAILY IV 03/24/24 10:00 03/25/24 10:34 125 MLS/HR Albuterol 2.5 mg Q4HPRN PRN NEB 03/23/24 16:45 Ipratropium [place] 0.5 mg Q4HPRN PRN NEB 03/23/24 16:45 Methylprednisolone Sodium Succinate 40 mg BID IV 03/23/24 22:00 03/25/24 21:41 40 MG Diagnostic Test (Pha) 1 strip ACHS 03/23/24 17:00 03/25/24 18:38 1 STRIP Insulin Human Regular HS SC 03/23/24 22:00 03/25/24 21:39 8 UNITS Insulin Human Regular AC SC 03/23/24 17:00 03/25/24 18:39 9 UNITS Dextrose 50 ml UD PRN IV 03/23/24 16:45 objective Gen.: Patient lying in bed in no apparent distress. On supplemental oxygen. Head: Normocephalic, atraumatic. Eyes: EOMI/PERRLA. Ears: Normal hearing. Normal anatomy. Neck/trachea: Trachea midline, supple. Nose: Normal external anatomy. Mouth: Moist mucous membranes. Chest: Decreased air entry bilaterally. No wheezing or rhonchi. Cardiovascular: Positive S1, positive S2. Regular rate and rhythm. Abdomen: Positive bowel sounds in all 4 quadrants. Soft, non-tender, non- distended. : Deferred. Rectal: Deferred. Skin: Warm, dry. Intact. Extremities: 2+ radial pulses bilaterally. No lower extremity edema. Neuro: Awake, alert, oriented x3. No gross motor or sensory deficits. Cranial nerves II through XII intact. Gait not assessed. laboratory and microbiology Laboratory Tests 03/25/24 13:09 03/24/24 03:35 Test 03/24/24 03:35 Range/Units Serum Glucose 250 H 74-106 mg/dL Assessment/Plan Impression: Acute hypoxic respiratory failure Pneumonia Epistaxis, recurrent Anemia Pleural effusion Atelectasis Leukocytosis Plan: Supplemental oxygen 2 LPM NC Titrate to keep O2 sats above 92%. Taper O2 as tolerated. CXR demonstrates small to moderate left pleural effusion with compressive atelectasis. Deferred thoracentesis for now due to low hemoglobin Obtain CXR in am for interval changes. If CXR demonstrates pleural effusion, will consider thoracentesis Continue antibiotics Follow up cultures 1 unit PRBC transfused Monitor hemoglobin closely Epistaxis resolved. Monitor WBC Monitor renal function. Monitor electrolytes. Supplement as necessary. Monitor ins and outs. DVT prophylaxis. Prognosis: Poor given patient's multiple co-morbidities. Rest of plan per hospitalist and other consultants. Thank you, Dr. Schneider, for allowing me to participate in this patient's care. Further recommendations will depend on the patient's clinical course. Please do not hesitate to contact me if you have any questions or concerns. This medical document was created using an electronic medical record system with [employer] dictation system. Although these documentations are being carefully reviewed, there may still be some phonetic and typographical changes. The errors are purely typographical, due to imperfection on the software program, and do not reflect any compromise in the patient's medical care. Plan discussed with: Patient, Son, Other (CARLOS Flores MD) OPAL TOVAR MD Mar 25, 2024 22:06
[2024-03-26] VITALS (9 sets, daily range): BP systolic 115–156; BP diastolic 47–63; PULSE 76–114; RESP 16–18; TEMP 97.8–98.6; O2SAT 90–99
[2024-03-26 01:51] LABS: Basophils # (auto) 0 10 ^3/uL (0-0.2); Basophils % (auto) 0.2 % (0.0-2.0); Eosinophils # (auto) 0 10 ^3/uL (0-0.8); Lymphocytes # (auto) 0.4 10 ^3/uL (0.4-5.4); Monocytes # (auto) 0.5 10 ^3/uL (0-1.3); Monocytes % (auto) 3.6 % (0.0-12.0); Neutrophils # (auto) 11.8 10 ^3/uL (1.6-8.6); Neutrophils % (auto) 92.7 % (37.0-80.0); White Blood Cell 12.7 10^3/uL (4.4-10.8)
[2024-03-26 01:52] LABS: Hemoglobin 7.9 g/dL (12.2-16.2); Lymphocytes % (auto) 3.5 % (10.0-50.0); Mean Corpuscular Hemoglobin 28.7 pg (28.0-32.0); Mean Corpuscular Hgb Conc. 31.6 g/dL (32.0-36.0); Mean Corpuscular Volume 90.8 fL (80.0-100.0); Nucleated Red Blood Cells % 0.3 %; Platelet Count (auto) 489 10^3/uL (140-450); Red Blood Cells 2.76 10^6/uL (4.0-5.20); Red Cell Distribution Width 14.5 % (11.8-14.3)
--- NOTE | 2024-03-26 09:14 | DVH ---
CHEST RADIOGRAPH Indication: interval changes pleural effusion Technique: Single frontal view of the chest was obtained COMPARISON: XY CHEST XRAY 1 VIEW on DOS: 03/23/24, FINDINGS: Lines and Tubes: None Lungs: Improved appearance of the left upper lung airspace disease and left-sided pleural effusion, n ow small in size. No pneumothorax. Cardiomediastinal contours: Unremarkable Bones: Unremarkable IMPRESSION: 1. Improved appearance of the left upper lung airspace disease and left-sided pleural effusion, now s mall in size. 2. No pneumothorax.
--- NOTE | 2024-03-26 09:36 | DVHPN2 ---
Reviewed: Care Plan, H&P, Labs, Medications, Previous Orders, Radiology Changes from previous H/P or p: No Changes Eyes: No Pain, No Vision change, No Conjunctivae inflammation, No Eyelid inflammation, No Other, No Redness ENT: No Ear pain, No Ear discharge, No Nose pain, No Nose discharge, No Nose congestion, No Mouth pain, No Mouth swelling, No Throat pain, No Throat swelling; Other (epitaxis) Cardiovascular: No Chest Pain, No Palpitations, No Orthopnea, No Paroxysmal Noc. Dyspnea, No Edema, No Lt Headedness, No Other Respiratory: Cough; No Dry, No Shortness of breath, No SOB with excertion, No Wheezing, No Hemoptysis, No Pleuritic Pain; Sputum; No Other Gastrointestinal: No Nausea, No Vomiting, No Abdominal Pain, No Diarrhea, No Constipation, No Melena, No Hematochezia, No Other Genitourinary: No Dysuria, No Frequency, No Incontinence, No Hematuria, No Retention, No Other Musculoskeletal: No other, No neck pain, No shoulder pain, No arm pain, No back pain, No hand pain, No leg pain, No foot pain Skin: No Rash, No Lesions, No Jaundice, No Bruising, No Other Objective Vitals Vital Signs Date Time Temp Pulse Resp B/P (MAP) Pulse Ox O2 Delivery O2 Flow Rate FiO2 03/26/24 08:47 97.8 88 16 128/50 (76) 94 97.8 03/25/24 20:41 Nasal Cannula 2.0 03/25/24 20:41 28 Intake/Output Intake and Output 03/26/24 07:00 Intake Total 1224 ml Output Total 750 ml Balance 474 ml Intake Oral 974 ml IV Total 250 ml Output Urine Total 750 ml Medications Current Medications Medications Dose Ordered Sig/Bradley Route Start Time Stop Time Status Last Admin Dose Admin Sodium Chloride 10 ml Q8HR IV 03/23/24 22:00 03/26/24 06:14 10 ML Ondansetron HCl 4 mg Q4HP PRN IV 03/23/24 14:45 Docusate Sodium 100 mg BIDPRN PRN PO 03/23/24 14:45 Acetaminophen 650 mg Q6HP PRN PO 03/23/24 14:45 03/24/24 08:40 650 MG Nitroglycerin 0.4 mg Q5MINP PRN SL 03/23/24 14:45 Morphine Sulfate 2 mg Q30M PRN IV 03/23/24 14:45 Famotidine 20 mg DAILY PO 03/24/24 10:00 03/25/24 10:34 20 MG Losartan Potassium 25 mg DAILY PO 03/24/24 10:00 Metformin HCl 500 mg IBID PO 03/23/24 18:00 03/26/24 06:13 500 MG Metoprolol Tartrate 25 mg DAILY PO 03/24/24 10:00 Pravastatin Sodium 40 mg HS PO 03/23/24 22:00 03/25/24 21:41 40 MG Patient Own Medication 1 tab DAILY PO 03/24/24 10:00 Insulin Glargine 10 units DAILY SC 03/24/24 10:00 03/25/24 12:10 10 UNITS Memantine 10 mg BID PO 03/23/24 22:00 03/25/24 21:41 10 MG Azithromycin 250 ml @ 125 mls/hr DAILY IV 03/24/24 10:00 03/25/24 10:34 125 MLS/HR Albuterol 2.5 mg Q4HPRN PRN NEB 03/23/24 16:45 Ipratropium [place] 0.5 mg Q4HPRN PRN NEB 03/23/24 16:45 Methylprednisolone Sodium Succinate 40 mg BID IV 03/23/24 22:00 03/25/24 21:41 40 MG Diagnostic Test (Pha) 1 strip ACHS 03/23/24 17:00 03/25/24 22:00 1 STRIP Insulin Human Regular HS SC 03/23/24 22:00 03/25/24 21:39 8 UNITS Insulin Human Regular AC SC 03/23/24 17:00 03/26/24 06:14 6 UNITS Dextrose 50 ml UD PRN IV 03/23/24 16:45 Laboratory Results Laboratory Tests 03/24/24 03:35 03/26/24 01:29 Urinalysis Test 03/23/24 14:00 Urine Color Yellow (Yellow) Urine Clarity Clear (Clear) Urine pH 5.0 (5.0-9.0) Urine Specific [place] 1.023 (1.001-1.035) Urine Protein Negative (Negative) Urine Ketones Negative (Negative) Urine Blood Negative /uL (Negative) Urine Nitrite Negative (Negative) Urine Bilirubin Negative (Negative) Urine Urobilinogen 2 mg/dL (Negative) H Urine Leukocyte Esterase Negative /uL (Negative) Urine RBC <1 /hpf (0 - 4) Urine WBC 2 /hpf (0 - 5) Urine Squamous Epithelial Cells None seen /hpf (<5) Urine Bacteria None seen /hpf (None Seen) Urine Glucose 4+ mg/dL (Normal) H Microbiology Microbiology Date/Time Source Procedure Growth Status 03/24/24 20:54 Nose MRSA Screen - Final Complete 03/23/24 14:00 Voided Urine Urine Culture - Final Complete Labs and/or images reviewed: Labs reviewed by me, Image(s) reviewed by me Assessment/Plan Assessment/Plan Severe Anemia hemoglobin 6.9: 1 unit RBC transfusion given, improved to7.[address] Jeannette Peterson appreciated, advised iron supplements Recurrent epistaxis unknown reason INR normal, she will follow up with the ENT as an outpt. Acute metabolic encephalopathy Pleural effusion, Sepsis secondary to pneumonia: Rocephin azithromycin, consult by Dr. Atwood Appreciated Hyperglycemia, Diabetes, : Insulin sliding scale Dementia, Hypertension, Hyperlipidemia, Time Spent 55 minutes Patient is full code Advanced care planning time 20 minutes Prognosis poor Son Matias [phone] at bedside Plan discussed with: Patient Date of Service: Mar 26, 2024 Billing Provider: LULU LOPEZ MD Common Visit Codes: [id number] INP/OBS CARE(HIGH) LULU LOPEZ MD Mar 26, 2024 09:36
[2024-03-26] MEDS: IRON SUCROSE COMPLEX 110 ML IV SCH (13:41)
--- NOTE | 2024-03-26 16:36 | DVHPN2 ---
Progress Note - Dictate Date Seen: Mar 26, 2024 Medical Necessity Reason Pt with a Central, PICC or Fol: No Subjective Patient seen and examined at bedside. Remains on supplemental oxygen Overnight events reviewed. vital signs Vital Sign Date Time Temp Pulse Resp B/P (MAP) Pulse Ox O2 Delivery O2 Flow Rate FiO2 03/26/24 16:34 98.6 97 16 123/48 (73) 96 98.6 03/26/24 14:24 2.0 03/26/24 13:49 Nasal Cannula* 28 Total Intake and Output 03/25/24 03/25/24 03/26/24 15:00 23:00 07:00 Intake Total 280 ml 744 ml 200 ml Output Total 450 ml 300 ml Balance 280 ml 294 ml -100 ml medications Current Medications Medications Dose Ordered Sig/Bradley Route Start Time Stop Time Status Last Admin Dose Admin Sodium Chloride 10 ml Q8HR IV 03/23/24 22:00 03/26/24 13:31 10 ML Ondansetron HCl 4 mg Q4HP PRN IV 03/23/24 14:45 Docusate Sodium 100 mg BIDPRN PRN PO 03/23/24 14:45 Acetaminophen 650 mg Q6HP PRN PO 03/23/24 14:45 03/24/24 08:40 650 MG Nitroglycerin 0.4 mg Q5MINP PRN SL 03/23/24 14:45 Morphine Sulfate 2 mg Q30M PRN IV 03/23/24 14:45 Famotidine 20 mg DAILY PO 03/24/24 10:00 03/26/24 10:49 20 MG Losartan Potassium 25 mg DAILY PO 03/24/24 10:00 03/26/24 10:51 25 MG Metformin HCl 500 mg IBID PO 03/23/24 18:00 03/26/24 06:13 500 MG Metoprolol Tartrate 25 mg DAILY PO 03/24/24 10:00 03/26/24 10:50 25 MG Pravastatin Sodium 40 mg HS PO 03/23/24 22:00 03/25/24 21:41 40 MG Patient Own Medication 1 tab DAILY PO 03/24/24 10:00 Insulin Glargine 10 units DAILY SC 03/24/24 10:00 03/26/24 10:00 10 UNITS Memantine 10 mg BID PO 03/23/24 22:00 03/26/24 10:49 10 MG Azithromycin 250 ml @ 125 mls/hr DAILY IV 03/24/24 10:00 03/26/24 10:49 125 MLS/HR Albuterol 2.5 mg Q4HPRN PRN NEB 03/23/24 16:45 Ipratropium [place] 0.5 mg Q4HPRN PRN NEB 03/23/24 16:45 Methylprednisolone Sodium Succinate 40 mg BID IV 03/23/24 22:00 03/26/24 10:49 40 MG Diagnostic Test (Pha) 1 strip ACHS 03/23/24 17:00 03/26/24 11:33 1 STRIP Insulin Human Regular HS SC 03/23/24 22:00 03/25/24 21:39 8 UNITS Insulin Human Regular AC SC 03/23/24 17:00 03/26/24 11:58 9 UNITS Dextrose 50 ml UD PRN IV 03/23/24 16:45 Iron Sucrose 110 ml @ 110 mls/hr DAILY@1200 IV 03/26/24 12:00 03/30/24 12:59 03/26/24 13:41 110 MLS/HR objective Gen.: Patient lying in bed in no apparent distress. On supplemental oxygen. Head: Normocephalic, atraumatic. Eyes: EOMI/PERRLA. Ears: Normal hearing. Normal anatomy. Neck/trachea: Trachea midline, supple. Nose: Normal external anatomy. Mouth: Moist mucous membranes. Chest: Decreased air entry bilaterally. No wheezing or rhonchi. Cardiovascular: Positive S1, positive S2. Regular rate and rhythm. Abdomen: Positive bowel sounds in all 4 quadrants. Soft, non-tender, non- distended. : Deferred. Rectal: Deferred. Skin: Warm, dry. Intact. Extremities: 2+ radial pulses bilaterally. No lower extremity edema. Neuro: Awake, alert, oriented x3. No gross motor or sensory deficits. Cranial nerves II through XII intact. Gait not assessed. laboratory and microbiology Laboratory Tests 03/26/24 01:29 03/24/24 03:35 Test 03/24/24 03:35 Range/Units Serum Glucose 250 H 74-106 mg/dL Assessment/Plan Impression: Acute hypoxic respiratory failure Pneumonia Epistaxis, recurrent Anemia Pleural effusion Atelectasis Leukocytosis Events: Remains on supplemental oxygen, 2 LPM NC Taper O2 as tolerated Limited chest ultrasound showed no pleural effusion. Continue antibiotics for pneumonia Incentive spirometry Monitor hemoglobin Disposition per hospitalist. Labs and imaging reviewed. Rest of plan as noted below. Plan: Supplemental oxygen Titrate to keep O2 sats above 92%. Continue antibiotics Follow up cultures Monitor hemoglobin closely Epistaxis resolved. Monitor WBC Monitor renal function. Monitor electrolytes. Supplement as necessary. Monitor ins and outs. DVT prophylaxis. Prognosis: Poor given patient's multiple co-morbidities. Rest of plan per hospitalist and other consultants. Thank you, Dr. Schneider, for allowing me to participate in this patient's care. Further recommendations will depend on the patient's clinical course. Please do not hesitate to contact me if you have any questions or concerns. This medical document was created using an electronic medical record system with [employer] dictation system. Although these documentations are being carefully reviewed, there may still be some phonetic and typographical changes. The errors are purely typographical, due to imperfection on the software program, and do not reflect any compromise in the patient's medical care. Plan discussed with: Patient, Other (CARLOS Medel) OPAL TOVAR MD Mar 26, 2024 16:36
--- NOTE | 2024-03-26 20:01 | DVHPN2 ---
Progress Note - Dictate Date Seen: Mar 26, 2024 Medical Necessity Reason Pt with a Central, PICC or Fol: No Subjective Patient seen at bedside She is awake alert and appears to be no distress There was one reported episode dialysis last night but none this morning vital signs Vital Sign Date Time Temp Pulse Resp B/P (MAP) Pulse Ox O2 Delivery O2 Flow Rate FiO2 03/26/24 16:34 98.6 97 16 123/48 (73) 96 98.6 03/26/24 14:24 2.0 03/26/24 13:49 Nasal Cannula* 28 Total Intake and Output 03/25/24 03/25/24 03/26/24 15:00 23:00 07:00 Intake Total 280 ml 744 ml 200 ml Output Total 450 ml 300 ml Balance 280 ml 294 ml -100 ml medications Current Medications Medications Dose Ordered Sig/Bradley Route Start Time Stop Time Status Last Admin Dose Admin Sodium Chloride 10 ml Q8HR IV 03/23/24 22:00 03/26/24 13:31 10 ML Ondansetron HCl 4 mg Q4HP PRN IV 03/23/24 14:45 Docusate Sodium 100 mg BIDPRN PRN PO 03/23/24 14:45 Acetaminophen 650 mg Q6HP PRN PO 03/23/24 14:45 03/24/24 08:40 650 MG Nitroglycerin 0.4 mg Q5MINP PRN SL 03/23/24 14:45 Morphine Sulfate 2 mg Q30M PRN IV 03/23/24 14:45 Famotidine 20 mg DAILY PO 03/24/24 10:00 03/26/24 10:49 20 MG Losartan Potassium 25 mg DAILY PO 03/24/24 10:00 03/26/24 10:51 25 MG Metformin HCl 500 mg IBID PO 03/23/24 18:00 03/26/24 18:01 500 MG Metoprolol Tartrate 25 mg DAILY PO 03/24/24 10:00 03/26/24 10:50 25 MG Pravastatin Sodium 40 mg HS PO 03/23/24 22:00 03/25/24 21:41 40 MG Patient Own Medication 1 tab DAILY PO 03/24/24 10:00 Insulin Glargine 10 units DAILY SC 03/24/24 10:00 03/26/24 10:00 10 UNITS Memantine 10 mg BID PO 03/23/24 22:00 03/26/24 10:49 10 MG Azithromycin 250 ml @ 125 mls/hr DAILY IV 03/24/24 10:00 03/26/24 10:49 125 MLS/HR Albuterol 2.5 mg Q4HPRN PRN NEB 03/23/24 16:45 Ipratropium [place] 0.5 mg Q4HPRN PRN NEB 03/23/24 16:45 Methylprednisolone Sodium Succinate 40 mg BID IV 03/23/24 22:00 03/26/24 10:49 40 MG Diagnostic Test (Pha) 1 strip ACHS 03/23/24 17:00 03/26/24 17:24 1 STRIP Insulin Human Regular HS SC 03/23/24 22:00 03/25/24 21:39 8 UNITS Insulin Human Regular AC SC 03/23/24 17:00 03/26/24 18:05 12 UNITS Dextrose 50 ml UD PRN IV 03/23/24 16:45 Iron Sucrose 110 ml @ 110 mls/hr DAILY@1200 IV 03/26/24 12:00 03/30/24 12:59 03/26/24 13:41 110 MLS/HR objective General: NAD, AAOX3 Chest: lung clark clear to auscultation Heart: RRR, no murmur Abdomen: non-distended, no tenderness to palpation, +BS laboratory and microbiology Laboratory Tests 03/26/24 01:29 03/24/24 03:35 Test 03/24/24 03:35 Range/Units Serum Glucose 250 H 74-106 mg/dL Problems(with codes): (1) Anemia (2) Hyperglycemia (3) Generalized weakness (4) Epistaxis, recurrent (5) Abnormal finding on radiology exam Prognosis Plan Her hemoglobin has improved to 7.9 8.1 after her 1 unit PRBC Hold aspirin Iron supplementation Advance diet as tolerated I will follow this patient with you If she shows signs of any GI bleeding I will be standing by for an endoscopy Outpatient referral to ENT for recurrent epistaxis I will order iron panel vitamin B12 serum folate level and ferritin levels and a CEA level Plan discussed with: Patient, Other (Dr Skyler shin) NINI REYNOSO MD Mar 26, 2024 20:01
[2024-03-26] MEDS ORDERED: INSULIN LANTUS (GLARGINE) 1 /0.01ml (100units/ml) SC SCH (22:00)
[2024-03-26] MEDS: INSULIN LANTUS (GLARGINE) 1 /0.01ml (100units/ml) SC ONE (23:08)
[2024-03-26] MEDS: MELATONIN 5 MG TAB PO SCH (23:09)
[2024-03-27] VITALS (8 sets, daily range): BP systolic 118–155; BP diastolic 53–61; PULSE 72–92; RESP 16–22; TEMP 97.1–98.9; O2SAT 92–97
[2024-03-27 07:25] LABS: % Iron Saturation 93.9 % (15-50)
[2024-03-27 07:28] LABS: Ferritin 138.8 ng/mL (10-291)
--- NOTE | 2024-03-27 10:52 | DVHPN2 ---
Reviewed: Care Plan, H&P, Labs, Medications, Previous Orders, Radiology Changes from previous H/P or p: No Changes Eyes: No Pain, No Vision change, No Conjunctivae inflammation, No Eyelid inflammation, No Other, No Redness ENT: No Ear pain, No Ear discharge, No Nose pain, No Nose discharge, No Nose congestion, No Mouth pain, No Mouth swelling, No Throat pain, No Throat swelling; Other (epitaxis) Cardiovascular: No Chest Pain, No Palpitations, No Orthopnea, No Paroxysmal Noc. Dyspnea, No Edema, No Lt Headedness, No Other Respiratory: Cough; No Dry, No Shortness of breath, No SOB with excertion, No Wheezing, No Hemoptysis, No Pleuritic Pain; Sputum; No Other Gastrointestinal: No Nausea, No Vomiting, No Abdominal Pain, No Diarrhea, No Constipation, No Melena, No Hematochezia, No Other Genitourinary: No Dysuria, No Frequency, No Incontinence, No Hematuria, No Retention, No Other Musculoskeletal: No other, No neck pain, No shoulder pain, No arm pain, No back pain, No hand pain, No leg pain, No foot pain Skin: No Rash, No Lesions, No Jaundice, No Bruising, No Other Objective Vitals Vital Signs Date Time Temp Pulse Resp B/P (MAP) Pulse Ox O2 Delivery O2 Flow Rate FiO2 03/27/24 08:48 98.8 85 18 155/60 (91) 92 98.8 03/27/24 03:03 Nasal Cannula 2.0 03/27/24 03:03 28 Intake/Output Intake and Output 03/27/24 07:00 Intake Total 1724 ml Output Total 3 ml Balance 1721 ml Intake Oral 1364 ml IV Total 360 ml Output Urine Total 3 ml Medications Current Medications Medications Dose Ordered Sig/Bradley Route Start Time Stop Time Status Last Admin Dose Admin Sodium Chloride 10 ml Q8HR IV 03/23/24 22:00 03/27/24 06:01 10 ML Ondansetron HCl 4 mg Q4HP PRN IV 03/23/24 14:45 Docusate Sodium 100 mg BIDPRN PRN PO 03/23/24 14:45 Acetaminophen 650 mg Q6HP PRN PO 03/23/24 14:45 03/26/24 20:12 650 MG Nitroglycerin 0.4 mg Q5MINP PRN SL 03/23/24 14:45 Morphine Sulfate 2 mg Q30M PRN IV 03/23/24 14:45 Famotidine 20 mg DAILY PO 03/24/24 10:00 03/26/24 10:49 20 MG Losartan Potassium 25 mg DAILY PO 03/24/24 10:00 03/26/24 10:51 25 MG Metformin HCl 500 mg IBID PO 03/23/24 18:00 03/27/24 06:09 500 MG Metoprolol Tartrate 25 mg DAILY PO 03/24/24 10:00 03/26/24 10:50 25 MG Pravastatin Sodium 40 mg HS PO 03/23/24 22:00 03/26/24 21:33 40 MG Patient Own Medication 1 tab DAILY PO 03/24/24 10:00 Insulin Glargine 10 units DAILY SC 03/24/24 10:00 03/26/24 10:00 10 UNITS Memantine 10 mg BID PO 03/23/24 22:00 03/26/24 21:33 10 MG Azithromycin 250 ml @ 125 mls/hr DAILY IV 03/24/24 10:00 03/26/24 10:49 125 MLS/HR Albuterol 2.5 mg Q4HPRN PRN NEB 03/23/24 16:[address] 0.5 mg Q4HPRN PRN NEB 03/23/24 16:45 Methylprednisolone Sodium Succinate 40 mg BID IV 03/23/24 22:00 03/26/24 21:29 40 MG Diagnostic Test (Pha) 1 strip ACHS 03/23/24 17:00 03/26/24 22:00 1 STRIP Insulin Human Regular HS SC 03/23/24 22:00 03/26/24 21:26 10 UNITS Insulin Human Regular AC SC 03/23/24 17:00 03/27/24 06:05 3 UNITS Dextrose 50 ml UD PRN IV 03/23/24 16:45 Iron Sucrose 110 ml @ 110 mls/hr DAILY@1200 IV 03/26/24 12:00 03/30/24 12:59 03/26/24 13:41 110 MLS/HR Insulin Glargine 10 units HS SC 03/26/24 22:00 UNV Melatonin 5 mg HS PO 03/26/24 22:49 03/26/24 23:09 5 MG Laboratory Results Laboratory Tests 03/24/24 03:35 03/26/24 01:29 Urinalysis Test 03/23/24 14:00 Urine Color Yellow (Yellow) Urine Clarity Clear (Clear) Urine pH 5.0 (5.0-9.0) Urine Specific [place] 1.023 (1.001-1.035) Urine Protein Negative (Negative) Urine Ketones Negative (Negative) Urine Blood Negative /uL (Negative) Urine Nitrite Negative (Negative) Urine Bilirubin Negative (Negative) Urine Urobilinogen 2 mg/dL (Negative) H Urine Leukocyte Esterase Negative /uL (Negative) Urine RBC <1 /hpf (0 - 4) Urine WBC 2 /hpf (0 - 5) Urine Squamous Epithelial Cells None seen /hpf (<5) Urine Bacteria None seen /hpf (None Seen) Urine Glucose 4+ mg/dL (Normal) H Microbiology Microbiology Date/Time Source Procedure Growth Status 03/24/24 20:54 Nose MRSA Screen - Final Complete 03/23/24 14:00 Voided Urine Urine Culture - Final Complete Labs and/or images reviewed: Labs reviewed by me, Image(s) reviewed by me Assessment/Plan Assessment/Plan Severe Anemia hemoglobin 6.9: 1 unit RBC transfusion given, improved to7.[address] Jeannette Peterson appreciated, advised iron supplements Recurrent epistaxis unknown reason INR normal, she will follow up with the ENT as an outpt. Acute metabolic encephalopathy Pleural effusion, Sepsis secondary to pneumonia: Rocephin azithromycin, consult by Dr. Atwood Appreciated Hyperglycemia, Diabetes, : Insulin sliding scale Dementia, Hypertension, Hyperlipidemia, UTI: Blood cx neg, urine cx mixed continue Rocephin Time Spent 55 minutes Patient is full code Advanced care planning time 20 minutes Prognosis poor Son Matias [phone] at bedside Plan discussed with: Patient Date of Service: Mar 27, 2024 Billing Provider: LULU LOPEZ MD Common Visit Codes: [id number] INP/OBS CARE(HIGH) LULU LOPEZ MD Mar 27, 2024 10:52
[2024-03-27] MEDS: cefTRIAXone 1GM/50ML D5W 50 ML IV SCH (16:00)
--- NOTE | 2024-03-27 23:03 | DVHPN2 ---
Progress Note - Dictate Date Seen: Mar 27, 2024 Medical Necessity Reason Pt with a Central, PICC or Fol: No Subjective Patient seen at bedside She is awake alert and appears to be no distress There were no further episodes of epistaxis last night or this morning Discussed with sitter at bedside vital signs Vital Sign Date Time Temp Pulse Resp B/P (MAP) Pulse Ox O2 Delivery O2 Flow Rate FiO2 03/27/24 21:00 98.2 86 18 130/56 (80) 96 98.2 03/27/24 20:15 Nasal Cannula* 2 28 Total Intake and Output 03/26/24 03/26/24 03/27/24 15:00 23:00 07:00 Intake Total 594 ml 680 ml 450 ml Output Total 1 ml 2 ml Balance 594 ml 679 ml 448 ml medications Current Medications Medications Dose Ordered Sig/Bradley Route Start Time Stop Time Status Last Admin Dose Admin Sodium Chloride 10 ml Q8HR IV 03/23/24 22:00 03/27/24 21:27 10 ML Ondansetron HCl 4 mg Q4HP PRN IV 03/23/24 14:45 Docusate Sodium 100 mg BIDPRN PRN PO 03/23/24 14:45 Acetaminophen 650 mg Q6HP PRN PO 03/23/24 14:45 03/26/24 20:12 650 MG Nitroglycerin 0.4 mg Q5MINP PRN SL 03/23/24 14:45 Morphine Sulfate 2 mg Q30M PRN IV 03/23/24 14:45 Famotidine 20 mg DAILY PO 03/24/24 10:00 03/27/24 10:44 20 MG Losartan Potassium 25 mg DAILY PO 03/24/24 10:00 03/27/24 10:00 25 MG Metformin HCl 500 mg IBID PO 03/23/24 18:00 03/27/24 18:01 500 MG Metoprolol Tartrate 25 mg DAILY PO 03/24/24 10:00 03/27/24 10:00 25 MG Pravastatin Sodium 40 mg HS PO 03/23/24 22:00 03/27/24 21:35 40 MG Patient Own Medication 1 tab DAILY PO 03/24/24 10:00 03/27/24 10:00 1 TAB Insulin Glargine 10 units DAILY SC 03/24/24 10:00 03/27/24 10:00 10 UNITS Memantine 10 mg BID PO 03/23/24 22:00 03/27/24 21:36 10 MG Azithromycin 250 ml @ 125 mls/hr DAILY IV 03/24/24 10:00 03/27/24 10:43 125 MLS/HR Methylprednisolone Sodium Succinate 40 mg BID IV 03/23/24 22:00 03/27/24 21:35 40 MG Diagnostic Test (Pha) 1 strip ACHS 03/23/24 17:00 03/27/24 21:28 1 STRIP Insulin Human Regular HS SC 03/23/24 22:00 03/27/24 21:55 6 UNITS Insulin Human Regular AC SC 03/23/24 17:00 03/27/24 17:00 9 UNITS Dextrose 50 ml UD PRN IV 03/23/24 16:45 Iron Sucrose 110 ml @ 110 mls/hr DAILY@1200 IV 03/26/24 12:00 03/30/24 12:59 03/27/24 12:00 110 MLS/HR Insulin Glargine 10 units HS SC 03/26/24 22:00 UNV Melatonin 5 mg HS PO 03/26/24 22:49 03/27/24 21:36 5 MG Ceftriaxone Sodium 50 ml @ 100 mls/hr DAILY@1600 IV 03/27/24 16:00 03/27/24 16:00 100 MLS/HR objective General: NAD, AAOX3 Chest: lung clark clear to auscultation Heart: RRR, no murmur Abdomen: non-distended, no tenderness to palpation, +BS laboratory and microbiology Laboratory Tests 03/26/24 01:29 03/24/24 03:35 Test 03/24/24 03:35 Range/Units Serum Glucose 250 H 74-106 mg/dL Problems(with codes): (1) Epistaxis, recurrent (2) Abnormal finding on radiology exam (3) Anemia (4) Hyperglycemia (5) Confusion (6) Generalized weakness (7) Pneumonia (8) Cough (9) Dyspnea (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 Iron profile has high iron levels and 93% saturation which is actually consistent with iron overload possible hemochromatosis Check hemochromatosis genotype; check right upper quadrant ultrasound rule out cirrhosis Vitamin B12 and serum folate levels are pending Continue to monitor labs Discontinue aspirin Patient was on IV antibiotics Outpatient follow up with ENT Patient may need outpatient referral to Hematology Oncology for suspected hemochromatosis Recommend getting 2D echo and imaging of the liver in the pancreas with a CT abdomen Plan discussed with: Patient, Other (Dr Skyler shin) NINI REYNOSO MD Mar 27, 2024 23:03
--- NOTE | 2024-03-27 23:45 | DVHPN2 ---
Progress Note - Dictate Date Seen: Mar 27, 2024 Medical Necessity Reason Pt with a Central, PICC or Fol: No Subjective Patient seen and examined at bedside. Remains on supplemental oxygen Overnight events reviewed. vital signs Vital Sign Date Time Temp Pulse Resp B/P (MAP) Pulse Ox O2 Delivery O2 Flow Rate FiO2 03/27/24 21:00 98.2 86 18 130/56 (80) 96 98.2 03/27/24 20:15 Nasal Cannula* 2 28 Total Intake and Output 03/26/24 03/26/24 03/27/24 15:00 23:00 07:00 Intake Total 594 ml 680 ml 450 ml Output Total 1 ml 2 ml Balance 594 ml 679 ml 448 ml medications Current Medications Medications Dose Ordered Sig/Bradley Route Start Time Stop Time Status Last Admin Dose Admin Sodium Chloride 10 ml Q8HR IV 03/23/24 22:00 03/27/24 21:27 10 ML Ondansetron HCl 4 mg Q4HP PRN IV 03/23/24 14:45 Docusate Sodium 100 mg BIDPRN PRN PO 03/23/24 14:45 Acetaminophen 650 mg Q6HP PRN PO 03/23/24 14:45 03/26/24 20:12 650 MG Nitroglycerin 0.4 mg Q5MINP PRN SL 03/23/24 14:45 Morphine Sulfate 2 mg Q30M PRN IV 03/23/24 14:45 Famotidine 20 mg DAILY PO 03/24/24 10:00 03/27/24 10:44 20 MG Losartan Potassium 25 mg DAILY PO 03/24/24 10:00 03/27/24 10:00 25 MG Metformin HCl 500 mg IBID PO 03/23/24 18:00 03/27/24 18:01 500 MG Metoprolol Tartrate 25 mg DAILY PO 03/24/24 10:00 03/27/24 10:00 25 MG Pravastatin Sodium 40 mg HS PO 03/23/24 22:00 03/27/24 21:35 40 MG Patient Own Medication 1 tab DAILY PO 03/24/24 10:00 03/27/24 10:00 1 TAB Insulin Glargine 10 units DAILY SC 03/24/24 10:00 03/27/24 10:00 10 UNITS Memantine 10 mg BID PO 03/23/24 22:00 03/27/24 21:36 10 MG Azithromycin 250 ml @ 125 mls/hr DAILY IV 03/24/24 10:00 03/27/24 10:43 125 MLS/HR Methylprednisolone Sodium Succinate 40 mg BID IV 03/23/24 22:00 03/27/24 21:35 40 MG Diagnostic Test (Pha) 1 strip ACHS 03/23/24 17:00 03/27/24 21:28 1 STRIP Insulin Human Regular HS SC 03/23/24 22:00 03/27/24 21:55 6 UNITS Insulin Human Regular AC SC 03/23/24 17:00 03/27/24 17:00 9 UNITS Dextrose 50 ml UD PRN IV 03/23/24 16:45 Iron Sucrose 110 ml @ 110 mls/hr DAILY@1200 IV 03/26/24 12:00 03/30/24 12:59 03/27/24 12:00 110 MLS/HR Insulin Glargine 10 units HS SC 03/26/24 22:00 UNV Melatonin 5 mg HS PO 03/26/24 22:49 03/27/24 21:36 5 MG Ceftriaxone Sodium 50 ml @ 100 mls/hr DAILY@1600 IV 03/27/24 16:00 03/27/24 16:00 100 MLS/HR objective Gen.: Patient lying in bed in no apparent distress. On supplemental oxygen. Head: Normocephalic, atraumatic. Eyes: EOMI/PERRLA. Ears: Normal hearing. Normal anatomy. Neck/trachea: Trachea midline, supple. Nose: Normal external anatomy. Mouth: Moist mucous membranes. Chest: Decreased air entry bilaterally. No wheezing or rhonchi. Cardiovascular: Positive S1, positive S2. Regular rate and rhythm. Abdomen: Positive bowel sounds in all 4 quadrants. Soft, non-tender, non- distended. : Deferred. Rectal: Deferred. Skin: Warm, dry. Intact. Extremities: 2+ radial pulses bilaterally. No lower extremity edema. Neuro: Awake, alert, oriented x3. No gross motor or sensory deficits. Cranial nerves II through XII intact. Gait not assessed. laboratory and microbiology Laboratory Tests 03/26/24 01:29 03/24/24 03:35 Test 03/24/24 03:35 Range/Units Serum Glucose 250 H 74-106 mg/dL Assessment/Plan Impression: Acute hypoxic respiratory failure Pneumonia Epistaxis, recurrent Anemia Pleural effusion Atelectasis Leukocytosis Events: Remains on supplemental oxygen, 2 LPM NC Taper O2 as tolerated Continue antibiotics for pneumonia Incentive spirometry Monitor hemoglobin HOB elevation Aspiration precautions. Disposition per hospitalist. Labs and imaging reviewed. Rest of plan as noted below. Plan: Supplemental oxygen Titrate to keep O2 sats above 92%. Continue antibiotics Follow up cultures Monitor hemoglobin closely Epistaxis resolved. Monitor WBC Monitor renal function. Monitor electrolytes. Supplement as necessary. Monitor ins and outs. DVT prophylaxis. Prognosis: Poor given patient's multiple co-morbidities. Rest of plan per hospitalist and other consultants. Thank you, Dr. Schneider, for allowing me to participate in this patient's care. Further recommendations will depend on the patient's clinical course. Please do not hesitate to contact me if you have any questions or concerns. This medical document was created using an electronic medical record system with [employer] dictation system. Although these documentations are being carefully reviewed, there may still be some phonetic and typographical changes. The errors are purely typographical, due to imperfection on the software program, and do not reflect any compromise in the patient's medical care. Plan discussed with: Patient, Other (CARLOS Dorado) OPAL TOVAR MD Mar 27, 2024 23:45
[2024-03-28 01:00] VITALS: BP 101/53
[2024-03-28] MEDS: TEMAZEPAM 15 MG CAP PO ONE (01:30)
[2024-03-28 05:00] VITALS: BP 129/61; PULSE 78; RESP 18; TEMP 98.6; O2SAT 92
[2024-03-28 08:00] VITALS: PULSE 80; RESP 16; O2SAT 94
--- NOTE | 2024-03-28 08:06 | DVH ---
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 COMPARISON: None FINDINGS: The liver is hETEROgenous in echogenicity. The liver measures 14cm. No intrahepatic biliar y ductal dilatation is noted. The gallbladder wall measures 0.2 cm and is unremarkable. No gallstones or sludge is seen. CBD not seen. No pericholecystic fluid is noted. The right kidney measures 9cm. No hydronephrosis. The left kidney measures 11cm. No hydronephrosis. The spleen measures cm, within normal limits. The echogenicity is within normal limits. The pancreas is not well visualized due to obscuration from bowel gas. The visualized portions of the IVC and aorta are grossly unremarkable. IMPRESSION: Hepatic steatosis, otherwise Normal exam of the abdomen.
[2024-03-28 08:36] LABS: COVID19 ANTIGEN SOFIA FIA NEGATIVE (NEGATIVE); Rapid Influenza A Negative (Negative); Rapid Influenza B Negative (Negative)
[2024-03-28 09:00] VITALS: BP 122/52; PULSE 106; RESP 20; TEMP 97.7; O2SAT 92
[2024-03-28 09:30] LABS: Hepatitis B Core Total AB Negative (Negative)
[2024-03-28] MEDS ORDERED: LEVO500T91 PO (09:51)
[2024-03-28] MEDS ORDERED: ALBUAER3 IN (09:51)
[2024-03-28] MEDS ORDERED: METH4PAK PO (09:51)
--- NOTE | 2024-03-28 09:53 | DVHPN2 ---
Reviewed: Care Plan, H&P, Labs, Medications, Previous Orders, Radiology Changes from previous H/P or p: No Changes Eyes: No Pain, No Vision change, No Conjunctivae inflammation, No Eyelid inflammation, No Other, No Redness ENT: No Ear pain, No Ear discharge, No Nose pain, No Nose discharge, No Nose congestion, No Mouth pain, No Mouth swelling, No Throat pain, No Throat swelling; Other (epitaxis) Cardiovascular: No Chest Pain, No Palpitations, No Orthopnea, No Paroxysmal Noc. Dyspnea, No Edema, No Lt Headedness, No Other Respiratory: Cough; No Dry, No Shortness of breath, No SOB with excertion, No Wheezing, No Hemoptysis, No Pleuritic Pain; Sputum; No Other Gastrointestinal: No Nausea, No Vomiting, No Abdominal Pain, No Diarrhea, No Constipation, No Melena, No Hematochezia, No Other Genitourinary: No Dysuria, No Frequency, No Incontinence, No Hematuria, No Retention, No Other Musculoskeletal: No other, No neck pain, No shoulder pain, No arm pain, No back pain, No hand pain, No leg pain, No foot pain Skin: No Rash, No Lesions, No Jaundice, No Bruising, No Other Objective Vitals Vital Signs Date Time Temp Pulse Resp B/P (MAP) Pulse Ox O2 Delivery O2 Flow Rate FiO2 03/28/24 09:00 97.7 106 20 122/52 (75) 92 97.7 03/27/24 20:15 Nasal Cannula* 2 28 Intake/Output Intake and Output 03/28/24 07:00 Intake Total 1650 ml Output Total 1 ml Balance 1649 ml Intake Oral 1240 ml IV Total 410 ml Stool Total 1 ml # Voids 6 Medications Current Medications Medications Dose Ordered Sig/Bradley Route Start Time Stop Time Status Last Admin Dose Admin Sodium Chloride 10 ml Q8HR IV 03/23/24 22:00 03/28/24 05:53 10 ML Ondansetron HCl 4 mg Q4HP PRN IV 03/23/24 14:45 Docusate Sodium 100 mg BIDPRN PRN PO 03/23/24 14:45 Acetaminophen 650 mg Q6HP PRN PO 03/23/24 14:45 03/26/24 20:12 650 MG Nitroglycerin 0.4 mg Q5MINP PRN SL 03/23/24 14:45 Morphine Sulfate 2 mg Q30M PRN IV 03/23/24 14:45 Famotidine 20 mg DAILY PO 03/24/24 10:00 03/27/24 10:44 20 MG Losartan Potassium 25 mg DAILY PO 03/24/24 10:00 03/27/24 10:00 25 MG Metformin HCl 500 mg IBID PO 03/23/24 18:00 03/27/24 18:01 500 MG Metoprolol Tartrate 25 mg DAILY PO 03/24/24 10:00 03/27/24 10:00 25 MG Pravastatin Sodium 40 mg HS PO 03/23/24 22:00 03/27/24 21:35 40 MG Patient Own Medication 1 tab DAILY PO 03/24/24 10:00 03/27/24 10:00 1 TAB Insulin Glargine 10 units DAILY SC 03/24/24 10:00 03/27/24 10:00 10 UNITS Memantine 10 mg BID PO 03/23/24 22:00 03/27/24 21:36 10 MG Azithromycin 250 ml @ 125 mls/hr DAILY IV 03/24/24 10:00 03/27/24 10:43 125 MLS/HR Methylprednisolone Sodium Succinate 40 mg BID IV 03/23/24 22:00 03/27/24 21:35 40 MG Diagnostic Test (Pha) 1 strip ACHS 03/23/24 17:00 03/27/24 21:28 1 STRIP Insulin Human Regular HS SC 03/23/24 22:00 03/27/24 21:55 6 UNITS Insulin Human Regular AC SC 03/23/24 17:00 03/27/24 17:00 9 UNITS Dextrose 50 ml UD PRN IV 03/23/24 16:45 Iron Sucrose 110 ml @ 110 mls/hr DAILY@1200 IV 03/26/24 12:00 03/30/24 12:59 03/27/24 12:00 110 MLS/HR Insulin Glargine 10 units HS SC 03/26/24 22:00 UNV Melatonin 5 mg HS PO 03/26/24 22:49 03/27/24 21:36 5 MG Ceftriaxone Sodium 50 ml @ 100 mls/hr DAILY@1600 IV 03/27/24 16:00 03/27/24 16:00 100 MLS/HR Laboratory Results Laboratory Tests 03/24/24 03:35 03/26/24 01:29 Urinalysis Test 03/23/24 14:00 Urine Color Yellow (Yellow) Urine Clarity Clear (Clear) Urine pH 5.0 (5.0-9.0) Urine Specific [place] 1.023 (1.001-1.035) Urine Protein Negative (Negative) Urine Ketones Negative (Negative) Urine Blood Negative /uL (Negative) Urine Nitrite Negative (Negative) Urine Bilirubin Negative (Negative) Urine Urobilinogen 2 mg/dL (Negative) H Urine Leukocyte Esterase Negative /uL (Negative) Urine RBC <1 /hpf (0 - 4) Urine WBC 2 /hpf (0 - 5) Urine Squamous Epithelial Cells None seen /hpf (<5) Urine Bacteria None seen /hpf (None Seen) Urine Glucose 4+ mg/dL (Normal) H Microbiology Microbiology Date/Time Source Procedure Growth Status 03/24/24 20:54 Nose MRSA Screen - Final Complete 03/23/24 14:00 Voided Urine Urine Culture - Final Complete Labs and/or images reviewed: Labs reviewed by me, Image(s) reviewed by me Assessment/Plan Assessment/Plan Severe Anemia hemoglobin 6.9: 1 unit RBC transfusion given, improved to7.[address] Jeannette Peterson appreciated, advised iron supplements Recurrent epistaxis unknown reason INR normal, she will follow up with the ENT as an outpt. Acute metabolic encephalopathy Pleural effusion, Sepsis secondary to pneumonia: Rocephin azithromycin, consult by Dr. Atwood Appreciated Hyperglycemia, Diabetes, : Insulin sliding scale Dementia, Hypertension, Hypercholesterolemia Long history of smoking, quit recently : Counseling Use of home oxygen 4 liters/minute UTI: Blood cx neg, urine cx mixed continue Rocephin Son does not want the patient to go to longterm facility for IV antibiotics for UTI Son Matias [phone] at bedside Plan discussed with: Patient My Orders Orders - LULU LOPEZ MD Procedure Category Date Status Time Ceftriaxone 1gm/50ml PHA 03/27/24 In Process D5w (Rocephin) 16:00 Date of Service: Mar 28, 2024 Billing Provider: LULU LOPEZ MD Common Visit Codes: [id number] INP/OBS CARE(HIGH) LULU LOPEZ MD Mar 28, 2024 09:53
[2024-03-28] MEDS ORDERED: FERR-7 PO (09:55)
--- NOTE | 2024-03-28 09:58 | DVHDS2 ---
Discharge Summary Date of Admission Mar 23, 2024 at 14:38 Date of Discharge: Mar 28, 2024 Admitting Diagnosis Altered mental status and confusion Wounds: None Labs/Diagnostic Data: Laboratory Results Test 03/28/24 05:53 03/28/24 00:00 03/27/24 12:25 03/27/24 05:52 Influenza Type A Antigen Negative (Negative) Influenza Type B Antigen Negative (Negative) SARS-CoV-2 Antigen (Rapid) Negative (NEGATIVE) POC Glucose 348 mg/dl (70-106) Iron Level 291 ug/dL (50-170) Total Iron Binding Capacity 310 ug/dL (250-425) Percent Iron Saturation 93.9 % (15-50) Ferritin 138.8 ng/mL (10-291) Test 03/26/24 01:29 03/24/24 03:35 03/23/24 14:00 03/23/24 13:07 White Blood Count 12.7 10^3/uL (4.4-10.8) Red Blood Count 2.76 10^6/uL (4.0-5.20) Hemoglobin 7.9 g/dL (12.2-16.2) Hematocrit 25.0 % (36.0-46.0) Mean Corpuscular Volume 90.8 fL (80.0-100.0) Mean Corpuscular Hemoglobin 28.7 pg (28.0-32.0) Mean Corpuscular Hemoglobin Concent 31.6 g/dL (32.0-36.0) Red Cell Distribution Width 14.5 % (11.8-14.3) Platelet Count 489 10^3/uL (140-450) Mean Platelet Volume 6.9 fL (6.9-10.8) Neutrophils (%) (Auto) 92.7 % (37.0-80.0) Lymphocytes (%) (Auto) 3.5 % (10.0-50.0) Monocytes (%) (Auto) 3.6 % (0.0-12.0) Eosinophils (%) (Auto) 0.0 % (0.0-7.0) Basophils (%) (Auto) 0.2 % (0.0-2.0) Neutrophils # (Auto) 11.8 10 ^3/uL (1.6-8.6) Lymphocytes # (Auto) 0.4 10 ^3/uL (0.4-5.4) Monocytes # (Auto) 0.5 10 ^3/uL (0-1.3) Eosinophils # (Auto) 0 10 ^3/uL (0-0.8) Basophils # (Auto) 0 10 ^3/uL (0-0.2) Nucleated Red Blood Cells 0.3 % Differential Total Cells Counted 100.0 (100) Neutrophils % (Manual) 98 (37.0-80.0) Band Neutrophils % (Manual) 0 Lymphocytes % (Manual) 1 (10.0-50.0) Monocytes % (Manual) 1 (0-12) Eosinophils % (Manual) 0 (0-7) Basophils % (Manual) 0 (0.0-2.0) Metamyelocytes % (manual) 0 Myelocytes % (Manual) 0 Promyelocytes % (Manual) 0 Blast Cells % (Manual) 0 Reactive Lymphocytes 0 Platelet Estimate Adequate Target Cells Few Sodium Level 137 mmol/L (136-145) Potassium Level 4.6 mmol/L (3.5-5.1) Chloride Level 104 mmol/L (98-107) Carbon Dioxide Level 26 mmol/L (20-31) Anion Gap 7 (5-15) Blood Urea Nitrogen 27 mg/dL (9-23) Creatinine 0.87 mg/dL (0.550-1.02) Glomerular Filtration Rate Calc 64 mL/min (>90) BUN/Creatinine Ratio 31.0 (10.0-20.0) Serum Glucose 250 mg/dL (74-106) Calcium Level 8.9 mg/dL (8.7-10.4) Total Bilirubin 0.3 mg/dL (0.2-1.0) Aspartate Amino Transferase (AST) 26 U/L (13-40) Alanine Aminotransferase (ALT) 18 U/L (7-40) Alkaline Phosphatase 96 U/L (46-116) Total Protein 6.2 g/dL (5.7-8.2) Albumin 3.6 g/dL (3.2-4.8) Urine Color Yellow (Yellow) Urine Clarity Clear (Clear) Urine pH 5.0 (5.0-9.0) Urine Specific [place] 1.023 (1.001-1.035) Urine Protein Negative (Negative) Urine Ketones Negative (Negative) Urine Blood Negative /uL (Negative) Urine Nitrite Negative (Negative) Urine Bilirubin Negative (Negative) Urine Urobilinogen 2 mg/dL (Negative) Urine Leukocyte Esterase Negative /uL (Negative) Urine RBC <1 /hpf (0 - 4) Urine WBC 2 /hpf (0 - 5) Urine Squamous Epithelial Cells None seen /hpf (<5) Urine Bacteria None seen /hpf (None Seen) Urine Glucose 4+ mg/dL (Normal) Prothrombin Time 11.3 sec (9.3-11.8) Prothrombin Time INR 1.07 (0.9-1.15) Activated Partial Thromboplast Time 25.5 SEC (24.5-34.5) Hemoglobin A1c 7.5 % A1C (<5.7) Ammonia < 10 umol/L (11-32) Other Laboratory Tests 03/26/24 01:29 03/24/24 03:35 Brief Hx & Hospital Course: 69-year-old female with a history of chronic smoking quit recently dementia diabetes hypertension hypercholesterolemia history of recurrent epistaxis came in complaining of generalized weakness found to have hemoglobin 6.91 new to RBC given improved to 7.9 iron supplements were placed GI Dr Dr. Jeannette Peterson advised outpatient follow up with the ENT physician. Patient had sepsis secondary to pneumonia . Treated with Rocephin azithromycin Solu-Medrol seen by pulmonology Dr. Atwood. Patient also had UTI treated with the antibiotics. Patient does not want to go to prison facility per her son and being discharged home. Prescription transmitted to the pharmacy. She will follow up with the ENT Dr for epistaxis and with the primary Dr and Dr. Atwood general condition stable at the time of discharge patient's vital signs are stable afebrile found eating breakfast uses 4 L of oxygen at home Consults/Reason for consult Pulmonology Dr. Atwood GI Dr. Jeannette Peterson Operations or Procedures RBC transfusion Condition at Discharge: Fair Final Diagnosis/Problems List Severe Anemia hemoglobin 6.9: 1 unit RBC transfusion given, improved to7.[address] Jeannette Peterson appreciated, advised iron supplements Recurrent epistaxis unknown reason INR normal, she will follow up with the ENT as an outpt. Acute metabolic encephalopathy Pleural effusion, Sepsis secondary to pneumonia: Rocephin azithromycin, consult by Dr. Atwood Appreciated Hyperglycemia, Diabetes, : Insulin sliding scale Dementia, Hypertension, Hypercholesterolemia Long history of smoking, quit recently : Counseling Use of home oxygen 4 liters/minute UTI: Blood cx neg, urine cx mixed continue Rocephin Discharge Disposition: Home Discharge Instruct/Medications Diet: Regular Activity: Light activity Follow Up/Referral: Follow up with primary DrHeriberto in one week Resume all previous home medication Follow up with the pulmonology Dr. Atwood in 2 weeks 35 (Time taken for discharge summary 35 minutes) Discharge Statement: "Patient was advised to return to the ER or call 911 if any headaches, dizziness, shortness of breath, chest pain, abdominal pain, bleeding, fevers, or worsening of medical condition. Patient was counseled about treatment plan, medications, possible side effects, patientverbalized understanding. All questions were answered to the best of my ability. This discharge took greater then 30 minutes in planning, reviewing documentation, counseling the patient, and discussing with other team members." ASSESSMENT ASSESSMENT Hospital Course Improved Assessment Severe Anemia hemoglobin 6.9: 1 unit RBC transfusion given, improved to7.[address] Jeannette Peterson appreciated, advised iron supplements Recurrent epistaxis unknown reason INR normal, she will follow up with the ENT as an outpt. Acute metabolic encephalopathy Pleural effusion, Sepsis secondary to pneumonia: Rocephin azithromycin, consult by Dr. Atwood Appreciated Hyperglycemia, Diabetes, : Insulin sliding scale Dementia, Hypertension, Hypercholesterolemia Long history of smoking, quit recently : Counseling Use of home oxygen 4 liters/minute UTI: Blood cx neg, urine cx mixed continue Rocephin Date of Service: Mar 28, 2024 Billing Provider: LULU LOPEZ MD Common Visit Codes: 61844-TZA/OBS DISCH DAY >30min LULU LOPEZ MD Mar 28, 2024 09:58
[2024-03-28 10:00] LABS: Hepatitis A Total Antibody Positive (Negative); Hepatitis B Surface Antibody Negative (Negative); Hepatitis B Surface Antigen Negative (Negative); Hepatitis C Antibody Negative (Negative)
[2024-03-28 10:28] LABS: Folate (Folic Acid) 19.78 ng/mL (>5.38)
[2024-03-28 11:25] VITALS: BP 116/60; PULSE 78; RESP 18; TEMP 97.9; O2SAT 93
--- NOTE | 2024-03-28 23:07 | DVHPN2 ---
Progress Note - Dictate Date Seen: Mar 28, 2024 Medical Necessity Reason Pt with a Central, PICC or Fol: No Subjective Patient seen and examined at bedside. Remains on supplemental oxygen Overnight events reviewed. vital signs Vital Sign Date Time Temp Pulse Resp B/P (MAP) Pulse Ox O2 Delivery O2 Flow Rate FiO2 03/28/24 11:25 97.9 78 18 93 03/28/24 10:00 122/52 03/28/24 08:00 Nasal Cannula* 2 28 Total Intake and Output 03/27/24 03/27/24 03/28/24 15:00 23:00 07:00 Intake Total 590 ml 610 ml 450 ml Output Total 1 ml Balance 590 ml 609 ml 450 ml medications Current Medications Medications Dose Ordered Sig/Bradley Route Start Time Stop Time Status Last Admin Dose Admin Insulin Glargine 10 units HS SC 03/26/24 22:00 UNV objective Gen.: Patient lying in bed in no apparent distress. On supplemental oxygen. Head: Normocephalic, atraumatic. Eyes: EOMI/PERRLA. Ears: Normal hearing. Normal anatomy. Neck/trachea: Trachea midline, supple. Nose: Normal external anatomy. Mouth: Moist mucous membranes. Chest: Decreased air entry bilaterally. No wheezing or rhonchi. Cardiovascular: Positive S1, positive S2. Regular rate and rhythm. Abdomen: Positive bowel sounds in all 4 quadrants. Soft, non-tender, non- distended. : Deferred. Rectal: Deferred. Skin: Warm, dry. Intact. Extremities: 2+ radial pulses bilaterally. No lower extremity edema. Neuro: Awake, alert, oriented x3. No gross motor or sensory deficits. Cranial nerves II through XII intact. Gait not assessed. laboratory and microbiology Laboratory Tests 03/26/24 01:29 03/24/24 03:35 Test 03/24/24 03:35 Range/Units Serum Glucose 250 H 74-106 mg/dL Assessment/Plan Impression: Acute hypoxic respiratory failure Pneumonia Epistaxis, recurrent Anemia Pleural effusion Atelectasis Leukocytosis Events: Remains on supplemental oxygen, 2 LPM NC Taper O2 as tolerated Continue antibiotics for pneumonia IV steroids Incentive spirometry Monitor hemoglobin HOB elevation Aspiration precautions. Patient is stable for discharge from the pulmonary standpoint. Disposition per hospitalist. Labs and imaging reviewed. Rest of plan as noted below. Plan: Supplemental oxygen Titrate to keep O2 sats above 92%. Continue antibiotics Follow up cultures Monitor hemoglobin closely Epistaxis resolved. Monitor WBC Monitor renal function. Monitor electrolytes. Supplement as necessary. Monitor ins and outs. DVT prophylaxis. Prognosis: Poor given patient's multiple co-morbidities. Rest of plan per hospitalist and other consultants. Thank you, Dr. Schneider, for allowing me to participate in this patient's care. Further recommendations will depend on the patient's clinical course. Please do not hesitate to contact me if you have any questions or concerns. This medical document was created using an electronic medical record system with [employer] dictation system. Although these documentations are being carefully reviewed, there may still be some phonetic and typographical changes. The errors are purely typographical, due to imperfection on the software program, and do not reflect any compromise in the patient's medical care. Plan discussed with: Patient, Other (CARLOS Acuna) OPAL TOVAR MD Mar 28, 2024 23:07
== END 2024-03-28 12:40 | disposition home or self-care (01) | DRG 720 ==
LOC: ER 10:24 → TELE 14:38 → TELE-EAST 03-24 04:41
PROVIDERS: ADMIT Nurse Practitioner Family; ATTEND Family Medicine
PROC: 30233N1 Transfusion of Nonautologous Red Blood Cells into Peripheral Vein, Percutaneous Approach (ICD-10-PCS; principal; 2024-03-24)
DX: A41.9 Sepsis, unspecified organism (principal); J96.21 Acute and chronic respiratory failure with hypoxia; G93.41 Metabolic encephalopathy; J15.69 Pneumonia due to other Gram-negative bacteria; J90 Pleural effusion, not elsewhere classified; J15.9 Unspecified bacterial pneumonia; F03.90 Unspecified dementia, unspecified severity, without behavioral disturbance, psychotic disturbance, mood disturbance, and anxiety; R71.0 Precipitous drop in hematocrit; E11.65 Type 2 diabetes mellitus with hyperglycemia; E78.00 Pure hypercholesterolemia, unspecified; R04.0 Epistaxis; I10 Essential (primary) hypertension; J45.909 Unspecified asthma, uncomplicated; N39.0 Urinary tract infection, site not specified; Z87.891 Personal history of nicotine dependence; Z79.899 Other long term (current) drug therapy; Z79.4 Long term (current) use of insulin
CPT/HCPCS: 36415; 70450; 71045; 76705; 80053; 81001; 82140; 82607; 82728; 82746; 82962; 83036; 83540; 83550; 85007; 85025; 85027; 85610; 85730; 86704; 86706; 86708; 86803; 86850; 86900; 86901; 86920; 87081; 87086; 87340; 87426; 87804; 93005; 96365; 96372; 97110; 97116; 97163; 97530; G0378; J1756; J1815

== ENCOUNTER 2024-04-27 10:06 | Inpatient (IN) | payer MEDICARE, MEDICAID ==
[~2024-04-27] VITALS: Ht 170.2 cm; Wt 77.0 kg
[~2024-04-27 10:06] MED LIST changes: +ALBU108A5 INH; +ALBUAER3 IN; +ASPI-325 PO; -AZIT-74 PO; +EMPA1TAB3 PO; +FAMO20TA10 PO; +FERR-7 PO; +INSU1INJ19 SC; +LEVO500T91 PO; +LOS25T PO; +MEMA1TAB5 PO; +MET25T PO; +METF-370 PO; +PRAV20TA3 PO; -TRAM-297 PO
--- NOTE | 2024-04-27 10:23 | ED.PDOC ---
Saundra. trauma (HPI) HPI Comments 89 y/o F presents to the ED for CC of s/p fall. Patient states that at 0830 she stood up from her bed to answer the phone when she fell off her bed landing on her hip and right thigh. Patient complain of current right hip numbness and pain. Patient denies social history. Patient denies LOC, hitting her head, or any other musculoskeletal pain. No other symptoms or modifying factors at this time. Time Seen by MD: 10:10 Primary Care Provider: UNKNOWN Reviewed notes: Nurses Notes, Medications, Allergies Allergies: Coded Allergies: NO KNOWN ALLERGIES (Unverified , 09/07/21) Home Meds Active Scripts Ferrous Sulfate (Iron) 325 Mg Tab, 325 MG PO BID, #180 TAB Prov:LULU LOPEZ MD 03/28/24 Albuterol Sulfate (VENTOLIN MDI) 90 Mcg Ih, 90 MCG IN QID, #1 INH Prov:LULU LOPEZ MD 03/28/24 Methylprednisolone (Medrol Dosepak) 4 Mg [place], 4 MG PO DAILY, #21 TAB UAD Prov:LULU LOPEZ MD 03/28/24 Levofloxacin Hemihydrate (LEVAQUIN 500 MG) 500 Mg Tab, 1 TAB PO DAILY, #7 TAB Prov:LULU LOPEZ MD 03/28/24 Reported Medications Pravastatin Sodium (PRAVACHOL TABLET) 20 Mg Tb, 2 TAB PO QPM, #90 TAB 1 Refill 03/23/24 Losartan Potassium (Losartan Potassium) 25 Mg Tab, PO 03/23/24 Albuterol Sulfate (Albuterol Sulfate Hfa) 108 Mcg/Act Aer, 1 INH Q4HPRN PRN 03/23/24 Famotidine (PEPCID TABLET) 20 Mg Tb, 1 TAB PO DAILY 03/23/24 Insulin Glargine (Basaglar Kwikpen) 100 Unit/Ml Inj, 10 UNITS SC DAILY 03/23/24 Metoprolol Tartrate (Lopressor) 25 Mg Tb, 1 TAB PO DAILY 03/23/24 Aspirin (Aspirin Low Dose) 81 Mg Tab, 1 TAB PO DAILY 03/23/24 Metformin Hydrochloride (Metformin Hcl) 500 Mg Tab, 1 TAB PO BID 03/23/24 Empagliflozin (Jardiance) 25 Mg Tab, 1 TAB PO DAILY 03/23/24 Memantine Hydrochloride (Memantine HCl) 10 Mg Tab, 1 TAB PO BID 03/23/24 Information Source: Patient Mode of Arrival: Wheelchair Severity: Moderate Timing: Hours Duration: Since onset Prehospital treatment: None Location: (R) Hip Location of laceration: None Associated signs and symtoms: Numbness Past Medical History PAST MEDICAL HISTORY: Asthma, Dementia, DM, High Lipids, HTN FOOD CHECKER History: Denies all FOOD CHECKER Hx Family History Family History: Reviewed,noncontributory to illness Social History Smoker: Non-Smoker Alcohol: Denies ETOH Use Drugs: Denies Drug Use Lives In: Home Constitutional: denies: chills, diaphoresis, fatigue, fever, malaise, sweats, weakness, others EENTM: denies: blurred vision, double vision, ear bleeding, ear discharge, ear drainage, ear pain, ear ringing, eye pain, eye redness, hearing loss, mouth pain, mouth swelling, nasal discharge, nose bleeding, nose congestion, nose pain, photophobia, tearing, throat pain, throat swelling, voice changes, others Respiratory: denies: cough, hemoptysis, orthopnea, SOB at rest, shortness of breath, SOB with excertion, stridor, wheezing, others Cardiovascular: denies: chest pain, dizzy spells, diaphoresis, Dyspnea on exertion, edema, irregular heart beat, left arm pain, lightheadedness, palpitations, PND, syncope, others Gastrointestinal: denies: abdomen distended, abdominal pain, blood streaked bowels, constipated, diarrhea, dysphagia, difficulty swallowing, hematemesis, melena, nausea, poor appetite, poor fluid intake, rectal bleeding, rectal pain, vomiting, others Genitourinary: denies: abnormal vagina bleeding, burning, dyspareunia, dysuria, flank pain, frequency, hematuria, incontinence, pain, , vagina d ischarge, urgency, others Neurological: denies: dizziness, fainting, headache, left sided numbness, left sided weakness, numbness, paresthesia, pre-existing deficit, right sided numbness, right sided weakness, seizure, speech problems, tingling, tremors, weakness, others Musculoskeletal: reports: back pain, others (RIGHT HIP PAIN); denies: gout, joint pain, joint swelling, muscle pain, muscle stiffness, neck pain Integumetry: denies: bruises, change in color, change in hair/nails, dryness, laceration, lesions, lumps, rash, wounds, others Allergic/Immunocompromised: denies: Difficulty Healing, Frequent Infections, Hives, Itching, others Hematologic/Lymphatic: denies: anemia, blood clots, easy bleeding, easy bruising, swollen glands, others Endocrine: denies: excessive hunger, excessive sweating, excessive thirst, excessive urination, flushing, intolerance to cold, intolerance to heat, unexplained weight gain, unexplained weight loss, others Psychiatric: denies: anxiety, bipolar disorder, depression, hopeless, panic disorder, schizophrenia, sleepless, suicidal, others All Other Systems: Reviewed and Negative Physical Exam General Appearance: Moderate Distress, Obese HEENT: Normal ENT Inspection, Pharynx Normal, TMs Normal Neck: Full Range of Motion, Non-Tender, Normal, Normal Inspection Respiratory: Chest Non-Tender, Lungs Clear, No Accessory Muscle Use, No Respiratory Distress, Normal Breath Sounds Cardiovascular: No Edema, No JVD, No Murmur, No Gallop, Normal Peripheral Pulses, Regular Rate/Rhythm Breast Exam: Deferred Gastrointestinal: No Organomegaly, Non Tender, No Pulsatile Mass, Normal Bowel Sounds, Soft Genitalia: Deferred Pelvic: Deferred Rectal: Deferred Extremities: No calf tenderness, Normal capillary refill, Normal inspection, Normal range of motion, Non-tender, No pedal edema Musculoskeletal : Location: Right Extremity Location: Hip Apperance: Limited ROM, Tenderness: Moderate Neurologic: Alert, poultry husbandman II-XII nml as Tested, No Motor Deficits, Normal Affect, Normal Mood, No Sensory Deficits Cerebellar Function: Normal Reflexes: Normal Skin: Dry, Normal Color, Warm Lymphatic: No Adenopathy Was a procedure done? Was a procedure done?: No Differential Diagnosis Multiple Trauma: Spine Injury, Contusion X-Ray, Labs, Meds, VS Vital Signs Date Time Temp Pulse Resp B/P (MAP) Pulse Ox O2 Delivery O2 Flow Rate FiO2 04/27/24 12:01 72 17 127/60 04/27/24 11:52 72 16 100 Room Air 04/27/24 11:52 97.7 72 16 127/60 (82) 96 97.7 04/27/24 10:10 98.3 73 18 136/46 (76) 90 Lab Test 04/27/24 11:38 Range/Units White Blood Count 12.2 H 4.4-10.8 10^3/uL Red Blood Count 3.52 L 4.0-5.20 10^6/uL Hemoglobin 10.6 L 12.2-16.2 g/dL Hematocrit 33.5 L 36.0-46.0 % Mean Corpuscular Volume 95.1 80.0-100.0 fL Mean Corpuscular Hemoglobin 30.1 28.0-32.0 pg Mean Corpuscular Hemoglobin Concent 31.6 L 32.0-36.0 g/dL Red Cell Distribution Width 17.4 H 11.8-14.3 % Platelet Count 346 140-450 10^3/uL Mean Platelet Volume 6.6 L 6.9-10.8 fL Neutrophils (%) (Auto) 88.8 H 37.0-80.0 % Lymphocytes (%) (Auto) 4.9 L 10.0-50.0 % Monocytes (%) (Auto) 5.7 0.0-12.0 % Eosinophils (%) (Auto) 0.2 0.0-7.0 % Basophils (%) (Auto) 0.4 0.0-2.0 % Neutrophils # (Auto) 10.9 H 1.6-8.6 10 ^3/uL Lymphocytes # (Auto) 0.6 0.4-5.4 10 ^3/uL Monocytes # (Auto) 0.7 0-1.3 10 ^3/uL Eosinophils # (Auto) 0 0-0.8 10 ^3/uL Basophils # (Auto) 0 0-0.2 10 ^3/uL Nucleated Red Blood Cells 0.1 % Prothrombin Time 11.0 9.3-11.8 sec Prothrombin Time INR 1.04 0.9-1.15 Activated Partial Thromboplast Time 22.9 L 24.5-34.5 SEC Sodium Level 145 136-145 mmol/L Potassium Level 4.1 3.5-5.1 mmol/L Chloride Level 109 H 98-107 mmol/L Carbon Dioxide Level 29 20-31 mmol/L Anion Gap 7 5-15 Blood Urea Nitrogen 13 9-23 mg/dL Creatinine 0.80 0.550-1.02 mg/dL Glomerular Filtration Rate Calc 71 >90 mL/min BUN/Creatinine Ratio 16.3 10.0-20.0 Serum Glucose 188 H 74-106 mg/dL Hemoglobin A1c Pending Calcium Level 9.5 8.7-10.4 mg/dL Current Medications Medications (Trade) Dose Ordered Sig/Bradley Route Start Time Stop Time Status Last Admin Morphine Sulfate 2 mg ONCE ONCE IV 04/27/24 11:00 04/27/24 11:01 DC 04/27/24 12:01 Ondansetron HCl (Zofran) 4 mg ONCE ONCE IV 04/27/24 11:00 04/27/24 11:01 DC 04/27/24 12:[address]: FINDINGS: There is acute comminuted intertrochanteric right femoral neck fracture. There is slight medial displacement of the lesser trochanter fracture fragment. Right hip joint space is maintained. There is a right hip joint effusion. Right hip soft tissue swelling. IMPRESSION: 1. Acute comminuted intertrochanteric right femoral neck fracture. All CT scans at this medical facility are performed using dose modulation techniques as appropriate to a performed exam including the following: Automated exposure control was utilized; adjustment of the MA and/or KV according to patient size; and use of iterative reconstruction technique. ATED BY: VLAD OVALLE MD DICTATED DATE/TIME: 04/27/24 104 SIGNED BY: VLAD OVALLE MD SIGNED DATE/TIME: 04/27/24 104 CC: IV Hep-Lock was established The patient was given morphine 2 mg IV push for the pain The patient was being given Zofran 4 mg IV push for the nausea The CBC shows an elevated white blood cell count of 12.2 The patient was anemic with a hemoglobin of 10.6 and hematocrit of 33.5 The rest of the chemistry panel is within normal limits At this time, the patient was being admitted to the hospitalist We did place an orthopedic surgery consult for Dr. Vilchis. The patient is being admitted Images Reviewed?: Images reviewed and evaluated by me Time of 1ST Reevaluation: 10:40 Reevaluation 1ST: Unchanged Patient Education/Counseling: Diagnosis, Treatment, Prognosis Family Education/Counseling: Diagnosis, Treatment, Prognosis Departure 1 Departure Time of Disposition: 12:33 Impression: Primary Impression: Displaced fracture of right femoral neck Disposition: ADMITTED INPATIENT Admit to: Med Surg Condition: Fair Critical Care Note Critical Care Time?: No Stability Stability form required: Yes Unstable for transfer: ED Physician Assesment (Clinical assesment) Heart Score Heart Score: Heart Score Response (Comments) Value History N/A 0 EKG N/A 0 Age N/A 0 Risk Factors N/A 0 Troponin N/A 0 Total 0 I personally scribed for SANTIAGO BLAIR MD ([email or web address]) on 04/27/24 at 10:23. Electronically submitted by Janna Adkins ([email or web address]). I personally scribed for SANTIAGO BLAIR MD ([email or web address]) on 04/27/24 at 10:56. Electronically submitted by Janna Adkins ([email or web address]). SANTIAGO BLAIR MD Apr 27, 2024 10:23
--- NOTE | 2024-04-27 10:48 | DVH ---
CLINICAL INDICATION: 89 years old, Female; FALL. TECHNIQUE: Noncontrast CT of the right hip was performed. Sagittal and coronal reformatted images are provided. COMPARISON: None CT Dose: CTDI volume is 14.91 mGy. Dose-length product is 378.35 mGy*cm FINDINGS: There is acute comminuted intertrochanteric right femoral neck fracture. There is slight medial disp lacement of the lesser trochanter fracture fragment. Right hip joint space is maintained. There is a right hip joint effusion. Right hip soft tissue swelling. IMPRESSION: 1. Acute comminuted intertrochanteric right femoral neck fracture. All CT scans at this medical facility are performed using dose modulation techniques as appropriate t o a performed exam including the following: Automated exposure control was utilized; adjustment of th e MA and/or KV according to patient size; and use of iterative reconstruction technique.
--- NOTE | 2024-04-27 11:14 | DVH ---
EXAM: XY CHEST PORTABLE Indication: pain Technique: Single frontal view of the chest was obtained Comparison: XY CHEST XRAY 1 VIEW on DOS: 03/26/24, XY CHEST XRAY 1 VIEW on DOS: 03/23/24, CXRP on DOS : 09/08/21, CHEST PORTABLE on DOS: 09/08/21, CHEST PORTABLE on DOS: 09/07/21 FINDINGS: Lines and Tubes: None Lungs: No focal consolidation. Pleura: Small left pleural effusion. No pneumothorax. Cardiomediastinal contours: Unremarkable Bones: No acute osseous abnormality. IMPRESSION: Small left pleural effusion.
[2024-04-27 11:58] LABS: Potassium 4.1 mmol/L (3.5-5.1); Sodium 145 mmol/L (136-145)
[2024-04-27 11:59] LABS: Anion Gap 7 (5-15); Calcium 9.5 mg/dL (8.7-10.4); Carbon Dioxide 29 mmol/L (20-31)
[2024-04-27] MEDS: MORPHINE SULFATE INJ 2 MG/ml SYRG IV ONE (12:01)
[2024-04-27] MEDS: ONDANSETRON HCL 4 MG/2 ML VIAL IV ONE (12:01)
[2024-04-27 12:02] LABS: INR 1.04 (0.9-1.15); Partial Thromboplastin Time 22.9 SEC (24.5-34.5)
[2024-04-27 12:04] LABS: BUN/Creatinine Ratio 16.3 (10.0-20.0); Blood Urea Nitrogen 13 mg/dL (9-23)
[2024-04-27 12:05] LABS: Basophils # (auto) 0 10 ^3/uL (0-0.2); Basophils % (auto) 0.4 % (0.0-2.0); Eosinophils # (auto) 0 10 ^3/uL (0-0.8); Eosinophils % (auto) 0.2 % (0.0-7.0); Hematocrit 33.5 % (36.0-46.0); Hemoglobin 10.6 g/dL (12.2-16.2); Lymphocytes # (auto) 0.6 10 ^3/uL (0.4-5.4); Lymphocytes % (auto) 4.9 % (10.0-50.0); Mean Corpuscular Hemoglobin 30.1 pg (28.0-32.0); Mean Corpuscular Hgb Conc. 31.6 g/dL (32.0-36.0); Mean Corpuscular Volume 95.1 fL (80.0-100.0); Monocytes # (auto) 0.7 10 ^3/uL (0-1.3); Monocytes % (auto) 5.7 % (0.0-12.0); Neutrophils # (auto) 10.9 10 ^3/uL (1.6-8.6); Neutrophils % (auto) 88.8 % (37.0-80.0); Nucleated Red Blood Cells % 0.1 %; Platelet Count (auto) 346 10^3/uL (140-450); Red Blood Cells 3.52 10^6/uL (4.0-5.20); Red Cell Distribution Width 17.4 % (11.8-14.3); White Blood Cell 12.2 10^3/uL (4.4-10.8)
[2024-04-27 12:09] LABS: Chloride 109 mmol/L (98-107); Glucose 188 mg/dL (74-106)
[2024-04-27] MEDS ORDERED: VANCOMYCIN PER PHARMACY 0 MG IV SCH (12:15)
[2024-04-27] MEDS ORDERED: ONDANSETRON HCL 4 MG/2 ML VIAL IV PRN (12:15)
[2024-04-27] MEDS ORDERED: DEXTROSE (50%) 50ML SYRG IV PRN (12:15)
--- NOTE | 2024-04-27 12:37 | DVHHP2 ---
History of Present Illness Reason for Visit: Status post mechanical fall History of Present Illness Sharlene Lezama is an 89-year-old female with past medical history of hypertension, hyperlipidemia, diabetes, asthma, dementia, and recent hospitalization last month for pneumonia who presents to the ED status post [facility]. Patient's son reports that patient was trying to get up out of bed to answer a phone call and fell on her hip. Patient's son reports that she does not use any DME is and she is able to ambulate without any assistance. He also reports that she was recently hospitalized last month for pneumonia. Patient's son states that she used to his 2 L nasal cannula of oxygen at home. He also states that she stopped taking aspirin because she developed significant nasal bleeding and was also instructed by her primary. Patient denies any chest pain, shortness of breath, abdominal pain, nausea, vomiting, diarrhea, urinary symptoms, fever, chills, lightheadedness and dizziness. Cardiovascular: HTN, hyperipidemia Pulmonary: Asthma, Pneumonia WINDLASSER: Dementia Endocrine: Diabetes Past Surgical History: None Family History: None Smoke: Quit ALCOHOL: none Drugs: None Lives: with Family Domestic Violence: Neg Review of Systems Constitutional: No: Fever, Chills, Sweats, Weakness, Malaise, Other Eyes: No: Pain, Vision change, Conjunctivae inflammation, Eyelid inflammation, Other, Redness ENT: No: Ear pain, Ear discharge, Nose pain, Nose discharge, Nose congestion, Mouth pain, Mouth swelling, Throat pain, Throat swelling, Other Respiratory: No: Cough, Dry, Shortness of breath, SOB with excertion, Wheezing, Hemoptysis, Pleuritic Pain, Sputum, Wheezing, Other Cardiovascular: No: Chest Pain, Palpitations, Orthopnea, Paroxysmal Noc. Dyspnea, Edema, Lt Headedness, Other Gastrointestinal: No: Nausea, Vomiting, Abdominal Pain, Diarrhea, Constipation, Melena, Hematochezia, Other Genitourinary: No Dysuria, No Frequency, No Incontinence, No Hematuria, No Retention, No Other Musculoskeletal: other (Right hip pain); No: neck pain, shoulder pain, arm pain, back pain, hand pain, leg pain, foot pain Skin: No: Rash, Lesions, Jaundice, Bruising, Other Neurological: No: Weakness, Numbness, Incoordination, Change in speech, Confusion, Seizures, Other Allergies: Coded Allergies: NO KNOWN ALLERGIES (Unverified , 09/07/21) Medications Current Medications Medications Dose Ordered Sig/Bradley Route Start Time Stop Time Status Last Admin Dose Admin Piperacillin Sod/ Tazobactam Sod 100 ml @ 25 mls/hr Q8HR IV 04/27/24 14:00 UNV Sodium Chloride 1,000 ml @ 70 mls/hr [id number] IV 04/27/24 12:15 UNV Acetaminophen/ Hydrocodone Bitart 1 tab Q4HP PRN PO 04/27/24 12:15 UNV Ondansetron HCl 4 mg Q4HP PRN IV 04/27/24 12:15 UNV Acetaminophen 650 mg Q6HP PRN PO 04/27/24 12:15 UNV Diagnostic Test (Pha) 1 strip Q6HR 04/27/24 18:00 UNV Insulin Human Regular Q6HR SC 04/27/24 18:00 UNV Dextrose 50 ml UD PRN IV 04/27/24 12:15 UNV Vancomycin HCl 0 ml @ 0 mls/hr UD IV 04/27/24 12:15 UNV Exam Vital Signs Vital Signs Date Time Temp Pulse Resp B/P (MAP) Pulse Ox O2 Delivery O2 Flow Rate FiO2 04/27/24 12:01 72 17 127/60 04/27/24 11:52 100 Room Air 04/27/24 11:52 97.7 97.7 General Appearance: Alert, Oriented X3, Cooperative, No acute distress HEENT: Atraumatic, PERRLA, EOMI, Mucous membr. moist/pink Respiratory: Clear to auscultation, Normal air movement Cardiovascular: Regular rate, Normal S1, Normal S2, No murmurs Abdominal: Normal bowel sounds, Soft, No tenderness, No hepatospenomegaly, No masses Extremities: No clubbing, No cyanosis, No edema, Normal pulses, No tenderness/swelling Skin: No significant lesion Neuro: Normal speech, Normal tone, Sensation intact Psych/Mental Status: Mental status NL, Mood NL Labs/Xrays Labs Test 04/27/24 11:38 Range/Units White Blood Count 12.2 H 4.4-10.8 10^3/uL Red Blood Count 3.52 L 4.0-5.20 10^6/uL Hemoglobin 10.6 L 12.2-16.2 g/dL Hematocrit 33.5 L 36.0-46.0 % Mean Corpuscular Volume 95.1 80.0-100.0 fL Mean Corpuscular Hemoglobin 30.1 28.0-32.0 pg Mean Corpuscular Hemoglobin Concent 31.6 L 32.0-36.0 g/dL Red Cell Distribution Width 17.4 H 11.8-14.3 % Platelet Count 346 140-450 10^3/uL Mean Platelet Volume 6.6 L 6.9-10.8 fL Neutrophils (%) (Auto) 88.8 H 37.0-80.0 % Lymphocytes (%) (Auto) 4.9 L 10.0-50.0 % Monocytes (%) (Auto) 5.7 0.0-12.0 % Eosinophils (%) (Auto) 0.2 0.0-7.0 % Basophils (%) (Auto) 0.4 0.0-2.0 % Neutrophils # (Auto) 10.9 H 1.6-8.6 10 ^3/uL Lymphocytes # (Auto) 0.6 0.4-5.4 10 ^3/uL Monocytes # (Auto) 0.7 0-1.3 10 ^3/uL Eosinophils # (Auto) 0 0-0.8 10 ^3/uL Basophils # (Auto) 0 0-0.2 10 ^3/uL Nucleated Red Blood Cells 0.1 % Prothrombin Time 11.0 9.3-11.8 sec Prothrombin Time INR 1.04 0.9-1.15 Activated Partial Thromboplast Time 22.9 L 24.5-34.5 SEC Sodium Level 145 136-145 mmol/L Potassium Level 4.1 3.5-5.1 mmol/L Chloride Level 109 H 98-107 mmol/L Carbon Dioxide Level 29 20-31 mmol/L Anion Gap 7 5-15 Blood Urea Nitrogen 13 9-23 mg/dL Creatinine 0.80 0.550-1.02 mg/dL Glomerular Filtration Rate Calc 71 >90 mL/min BUN/Creatinine Ratio 16.3 10.0-20.0 Serum Glucose 188 H 74-106 mg/dL Calcium Level 9.5 8.7-10.4 mg/dL EXAM: XY CHEST PORTABLE Indication: pain Technique: Single frontal view of the chest was obtained Comparison: XY CHEST XRAY 1 VIEW on DOS: 03/26/24, XY CHEST XRAY 1 VIEW on DOS: 03/23/24, CXRP on DOS: 09/08/21, CHEST PORTABLE on DOS: 09/08/21, CHEST PORTABLE on DOS: 09/07/21 FINDINGS: Lines and Tubes: None Lungs: No focal consolidation. Pleura: Small left pleural effusion. No pneumothorax. Cardiomediastinal contours: Unremarkable Bones: No acute osseous abnormality. IMPRESSION: Small left pleural effusion. CLINICAL INDICATION: 89 years old, Female; FALL. TECHNIQUE: Noncontrast CT of the right hip was performed. Sagittal and coronal reformatted images are provided. COMPARISON: None CT Dose: CTDI volume is 14.91 mGy. Dose-length product is 378.35 mGy*cm FINDINGS: There is acute comminuted intertrochanteric right femoral neck fracture. There is slight medial displacement of the lesser trochanter fracture fragment. Right hip joint space is maintained. There is a right hip joint effusion. Right hip soft tissue swelling. IMPRESSION: 1. Acute comminuted intertrochanteric right femoral neck fracture. All CT scans at this medical facility are performed using dose modulation techniques as appropriate to a performed exam including the following: Automated exposure control was utilized; adjustment of the MA and/or KV according to patient size; and use of iterative reconstruction technique. Assessment/Plan Assessment/Plan Assessment/plan: Right femoral neck fracture status post mechanical fall Pleural effusion Labs Antiemetics Pain management EKG Chest x-ray PT/PTT CT right hip A.m. labs Ortho consult IV antibiotics-vancomycin + Zosyn UA Diabetes type 2 uncontrolled Hemoglobin A1c ISS and Accu-Cheks Chronic hypertension Continue home medication Chronic hyperlipidemia Continue home medications Chronic asthma P.r.n. respiratory treatments Chronic dementia Continue home medications FEN/PPx NPO IVf DVT prophylaxis-not indicated patient ambulating PUD prophylaxis-Protonix Discussed plan of care with patient and nurse Home medications reconciled Admit to med surge Plan discussed with: Patient My Orders Orders - MICHELL FERNANDEZ SERVICE ADMINISTRATOR Procedure Category Date Status Time Piperacillin-Tazob PHA 04/27/24 Logged 3.375gm (Zosyn 3.375g 14:00 Piperacillin-Tazob PHA 04/27/24 Logged 3.375gm (Zosyn 3.375g 12:15 Admit ADMIT 04/27/24 Transmitted 12:14 Allergies MICKY 04/27/24 In Process 12:14 Code Status CODE 04/27/24 Transmitted 12:14 Sodium Chloride 0.9% PHA 04/27/24 Logged 12:15 Hydrocodone-Acet PHA 04/27/24 Logged 5/325mg Tab ([place] 12:15 Ondansetron Hcl PHA 04/27/24 Logged (Zofran) 12:15 Complete Blood Count LAB 04/28/24 Verified 04:00 Comprehensive LAB 04/28/24 Verified Metabolic Panel 04:00 Npo (Nothing By DIET 04/27/24 Transmitted Mouth) Diet Lunch Acetaminophen Tablet PHA 04/27/24 Logged (Tylenol Tablet) 12:15 Glucose Blood PHA 04/27/24 Logged (Accu-Chek Comfort 18:00 Insulin R (Human) PHA 04/27/24 Logged (Insulin R) 18:00 Dextrose 50% Syringe PHA 04/27/24 Logged 12:15 Hemoglobin A1c LAB 04/27/24 In Process 12:14 Vancomycin Per PHA 04/27/24 Logged Pharmacy 12:15 Date of Service: Apr 27, 2024 Billing Provider: MICHELL FERNANDEZ Common Visit Codes: [id number] INP/OBS CARE (HIGH) MICHELL FERNANDEZP Apr 27, 2024 12:37
[2024-04-27 14:43] VITALS: BP 127/60; PULSE 72; RESP 17; TEMP 97.7; O2SAT 96
[2024-04-27 17:21] VITALS: PULSE 93; RESP 16; O2SAT 94
[2024-04-27] MEDS: SODIUM CHLORIDE 0.9% 1,000 ML IV SCH (17:26)
[2024-04-27] MEDS: PIPERACILLIN-TAZOB 3.375GM 100 ML IV ONE (17:50)
[2024-04-27] MEDS: PRAVASTATIN SODIUM 20 MG TAB PO SCH (17:51)
[2024-04-27] MEDS: InsuLIN REG 1unit/0.01ml Soln (100units/ml) SC SCH (18:00)
[2024-04-27] MEDS: VANCOMYCIN 1.75GM/350ML 350 ML IV ONE (18:58)
[2024-04-27] MEDS: ACCU-CHEK COMFORT CURVE STRIP VI SCH (19:30)
[2024-04-27 21:19] VITALS: PULSE 91; RESP 19; O2SAT 96
[2024-04-27] MEDS: PIPERACILLIN-TAZOB 3.375GM 100 ML IV SCH (21:50)
[2024-04-27] MEDS: MEMANTINE HCL 5 MG TAB PO SCH (21:56)
[2024-04-27] MEDS: FERROUS SULFATE 325mg EC TAB PO SCH (21:56)
[2024-04-27] MEDS ORDERED: MEMANTINE HCL 5 MG TAB PO SCH (22:00)
[2024-04-28] VITALS (10 sets, daily range): BP systolic 118–137; BP diastolic 56–86; PULSE 66–88; RESP 12–18; TEMP 98.2–99.1; O2SAT 96–100
[2024-04-28] MEDS: ACETAMINOPHEN 325 MG TAB PO PRN (03:38)
[2024-04-28 06:37] LABS: Urine Bacteria FEW /hpf (None Seen); Urine Blood Negative /uL (Negative); Urine Clarity Clear (Clear); Urine Color Light-Yellow (Yellow); Urine Protein, UAD Negative (Negative); Urine Specific Gravity 1.031 (1.001-1.035); Urine Squamous Epithelial Cell None Seen /hpf (<5); Urine Urobilinogen Normal (Negative); Urine WBC 3 /HPF (0-5); Urine pH 6.5 (5.0-9.0)
[2024-04-28 06:37] LABS: Basophils # (auto) 0 10 ^3/uL (0-0.2); Basophils % (auto) 0.7 % (0.0-2.0); Eosinophils # (auto) 0 10 ^3/uL (0-0.8); Eosinophils % (auto) 0.4 % (0.0-7.0); Hematocrit 29.6 % (36.0-46.0); Hemoglobin 9.4 g/dL (12.2-16.2); Lymphocytes # (auto) 1.3 10 ^3/uL (0.4-5.4); Lymphocytes % (auto) 17.9 % (10.0-50.0); Mean Corpuscular Hemoglobin 30.2 pg (28.0-32.0); Mean Corpuscular Hgb Conc. 31.6 g/dL (32.0-36.0); Mean Corpuscular Volume 95.4 fL (80.0-100.0); Monocytes # (auto) 1.1 10 ^3/uL (0-1.3); Monocytes % (auto) 14.7 % (0.0-12.0); Neutrophils # (auto) 4.7 10 ^3/uL (1.6-8.6); Neutrophils % (auto) 66.3 % (37.0-80.0); Nucleated Red Blood Cells % 0.1 %; Platelet Count (auto) 278 10^3/uL (140-450); Red Cell Distribution Width 17.3 % (11.8-14.3); White Blood Cell 7.2 10^3/uL (4.4-10.8)
[2024-04-28 07:03] LABS: Alanine Aminotransferase 11 U/L (7-40); Alkaline Phosphatase 44 U/L (46-116); Anion Gap 9 (5-15); BUN/Creatinine Ratio 17.9 (10.0-20.0); Blood Urea Nitrogen 12 mg/dL (9-23); Calcium 8.5 mg/dL (8.7-10.4); Carbon Dioxide 25 mmol/L (20-31); Chloride 112 mmol/L (98-107); Glucose 112 mg/dL (74-106); Potassium 3.7 mmol/L (3.5-5.1); Sodium 146 mmol/L (136-145)
[2024-04-28 07:04] LABS: Aspartate Aminotransferase 16 U/L (13-40); Bilirubin, Total 0.5 mg/dL (0.2-1.0)
[2024-04-28] MEDS: PANTOPRAZOLE 40 MG/10 ML VIAL INJ IV SCH (11:16)
[2024-04-28] MEDS: METOPROLOL TARTRATE 25 MG TAB PO SCH (11:16)
[2024-04-28] MEDS: LOSARTAN POTASSIUM 25 MG TAB PO SCH (11:17)
--- NOTE | 2024-04-28 17:28 | DVHPN2 ---
Subjective Patient continues to report having right hip pain Changes from previous H/P or p: No Changes Eyes: No Pain, No Vision change, No Conjunctivae inflammation, No Eyelid inflammation, No Other, No Redness ENT: No Ear pain, No Ear discharge, No Nose pain, No Nose discharge, No Nose congestion, No Mouth pain, No Mouth swelling, No Throat pain, No Throat swelling, No Other Cardiovascular: No Chest Pain, No Palpitations, No Orthopnea, No Paroxysmal Noc. Dyspnea, No Edema, No Lt Headedness, No Other Respiratory: No Cough, No Dry, No Shortness of breath, No SOB with excertion, No Wheezing, No Hemoptysis, No Pleuritic Pain, No Sputum, No Other Gastrointestinal: No Nausea, No Vomiting, No Abdominal Pain, No Diarrhea, No Constipation, No Melena, No Hematochezia, No Other Genitourinary: No Dysuria, No Frequency, No Incontinence, No Hematuria, No Retention, No Other Musculoskeletal: other (Right hip pain); No neck pain, No shoulder pain, No arm pain, No back pain, No hand pain, No leg pain, No foot pain Skin: No Rash, No Lesions, No Jaundice, No Bruising, No Other Objective Vitals Vital Signs Date Time Temp Pulse Resp B/P (MAP) Pulse Ox O2 Delivery O2 Flow Rate FiO2 04/28/24 12:58 98.3 66 18 137/58 (84) 99 98.3 04/28/24 10:30 Nasal Cannula* 3 32 Intake/Output Intake and Output 04/28/24 07:00 Intake Total 1555 ml Balance 1555 ml Intake IV Total 1555 ml General Appearance: Alert, Oriented X3, Cooperative, mild distress HEENT: Atraumatic, PERRLA Lungs: Clear to auscultation, Normal air movement Cardiovascular: Normal S1, Normal S2 Abdomen: Normal bowel sounds, Soft, No tenderness, No hepatospenomegaly, No masses Back: Flank Tenderness, Midline Tenderness Musculoskeletal: Normal sensory function, Normal motor function Extremities: Other (Right lower extremity deformed) Neuro: Normal speech Psych/Mental Status: Mental status NL, Mood NL Medications Current Medications Medications Dose Ordered Sig/Bradley Route Start Time Stop Time Status Last Admin Dose Admin Piperacillin Sod/ Tazobactam Sod 100 ml @ 25 mls/hr Q8HR IV 04/27/24 22:00 04/28/24 16:53 25 MLS/HR Sodium Chloride 1,000 ml @ 70 mls/hr [id number] IV 04/27/24 12:15 04/28/24 03:43 70 MLS/HR Acetaminophen/ Hydrocodone Bitart 1 tab Q4HP PRN PO 04/27/24 12:15 Ondansetron HCl 4 mg Q4HP PRN IV 04/27/24 12:15 Acetaminophen 650 mg Q6HP PRN PO 04/27/24 12:15 04/28/24 03:38 650 MG Diagnostic Test (Pha) 1 strip Q6HR 04/27/24 18:00 04/28/24 12:00 1 STRIP Insulin Human Regular Q6HR SC 04/27/24 18:00 Dextrose 50 ml UD PRN IV 04/27/24 12:15 Vancomycin HCl 0 ml @ 0 mls/hr UD IV 04/27/24 12:15 Pantoprazole Sodium 40 mg DAILY IV 04/28/24 10:00 04/28/24 11:16 40 MG Albuterol 2.5 mg Q4HPRN PRN NEB 04/27/24 12:45 Ipratropium Johnston 0.5 mg Q4HPRN PRN NEB 04/27/24 12:45 Losartan Potassium 25 mg DAILY PO 04/28/24 10:00 04/28/24 11:17 25 MG Metoprolol Tartrate 25 mg DAILY PO 04/28/24 10:00 04/28/24 11:16 25 MG Pravastatin Sodium 40 mg QPM PO 04/27/24 18:00 Ferrous Sulfate 325 mg BID PO 04/27/24 22:00 04/28/24 11:16 325 MG Memantine 10 mg BID PO 04/27/24 22:00 04/28/24 11:17 10 MG Vancomycin HCl 100 ml @ 100 mls/hr Q24H IV 04/28/24 19:00 Laboratory Results Laboratory Tests 04/28/24 05:39 Chemistry Test 04/28/24 05:39 Albumin 4.0 g/dL (3.2-4.8) Calcium Level 8.5 mg/dL (8.7-10.4) L Total Protein 6.0 g/dL (5.7-8.2) LFT Test 04/28/24 05:39 Alanine Aminotransferase (ALT) 11 U/L (7-40) Alkaline Phosphatase 44 U/L (46-116) L Aspartate Amino Transferase (AST) 16 U/L (13-40) Total Bilirubin 0.5 mg/dL (0.2-1.0) Urinalysis Test 04/28/24 05:50 Urine Color Light-yellow (Yellow) Urine Clarity Clear (Clear) Urine pH 6.5 (5.0-9.0) Urine Specific Mccrory 1.031 (1.001-1.035) Urine Protein Negative (Negative) Urine Ketones Trace (Negative) Urine Blood Negative /uL (Negative) Urine Nitrite Negative (Negative) Urine Bilirubin Negative (Negative) Urine Urobilinogen Normal mg/dL (Negative) Urine Leukocyte Esterase Negative /uL (Negative) Urine RBC 1 /hpf (0 - 4) Urine Microscopic WBC 3 /HPF (0-5) Urine Squamous Epithelial Cells None seen /hpf (<5) Urine Bacteria Few /hpf (None Seen) H Urine Glucose 4+ mg/dL (Normal) H Labs and/or images reviewed: Labs reviewed by me, Image(s) reviewed by me Assessment/Plan Assessment/Plan Impression: -right hip fracture -dementia -primary hypertension -dyslipidemia -pleural effusion -leukocytosis, probable sirs -asthma Plan: -surgical consultation -echocardiogram -continue antibiotic therapy at this time -antihypertensives -pain management -PUD, DVT prophylaxis -according to patient was family, they are plans for surgery in the a.m.. -NPO after midnight Total time spent with patient discussing and formulating plan of care: 35 minutes. This medical document was created using an electronic medical record system with [employer] dictation system. Although this document has been carefully reviewed, there may still be some phonetic and typographical errors. These areas are purely typographical due to imperfections of the software programs, and do not reflect any compromise in the patient's medical care. Plan discussed with: Patient, Other (RN) My Orders Orders - JOSEPH FRANCIS NP Procedure Category Date Status Time Hepatitis B Surface LAB 04/28/24 In Process Antigen 14:38 Hepatitis C Antibody LAB 04/28/24 In Process 14:38 * Heating Element Winder CONS 04/28/24 Transmitted Consult Echo 2d Mode Cardiac US 04/28/24 Transmitted DOP 17:18 Date of Service: Apr 28, 2024 Billing Provider: JOSEPH FRANCIS NP Common Visit Codes: [id number] INP/OBS CARE(HIGH) JOSEPH FRANCIS NP Apr 28, 2024 17:28
[2024-04-28] MEDS ORDERED: VANCOMYCIN 750MG KIT 100 ML IV SCH (19:00)
--- NOTE | 2024-04-28 20:22 | DVHHP2 ---
History Allergies: Coded Allergies: NO KNOWN ALLERGIES (Unverified , 09/07/21) Chief Complaint: Orthopaedic consult for Right hip pain s/p mechanical fall 04/26/22 Present Illness(Onset/Duration 89F, mechanical fall 04/26/22, no LOC, PMH HTN, Dm, Dementia, Asthma, with admission last month for pnuemonia, using O2 2L NC at home, no hitting head with fall Past Surgical History non contributory Physical Exam Skin intact EENT NCAT Chest and Lungs CTA B Heart RRR neg MRG Abdomen NBS ND NT Extremities Right hip, pain with AROM, PROM Vital Signs Vital Signs Date Time Temp Pulse Resp B/P (MAP) Pulse Ox O2 Delivery O2 Flow Rate FiO2 04/28/24 17:00 99.1 77 18 136/56 (82) 99 99.1 04/28/24 16:00 Nasal Cannula* 3 32 Impressions/Description Right hip intertrochanteric fracture Plan pre-op medical and cardiac clearance surgery ORIF right hip IT fracture , 04/29/24 GAVIN COUCH MD Apr 28, 2024 20:22
[2024-04-28] MEDS: HYDROcodone-ACET 5/325MG TAB PO PRN (23:23)
[2024-04-29] VITALS (10 sets, daily range): BP systolic 121–149; BP diastolic 49–79; PULSE 63–93; RESP 16–20; TEMP 97.6–98.8; O2SAT 94–100
--- NOTE | 2024-04-29 08:28 | DVHSR ---
APPROVED REPORT EXAM: Two-dimensional and M-mode echocardiogram with Doppler and color Doppler. Blood Pressure: 137/58 mmHg INDICATION Pre-Op RISK FACTORS Height: 5' 7", Weight: 155 DIMENSIONS LVDd3.9 (3.8-5.7cm)LA (2D)3.7 (1.9-4.0cm)Aortic Root2.9 (2.0-3.7cm) LVDs2.3 (2.5-4.0cm)LA (MM) (1.9-4.0cm)Aortic Cusp Exc1.7 (1.5-2.0cm) EF (%) 73.0 (55-70%)Rt. Atrium3.9 (1.9-4.0cm)Asc. Aorta cm IVSd1.1 (0.7-1.1cm)RV (D) (1.8-2.4cm) PWd1.0 (0.7-1.1cm) Mitral Valve MitralMitral Stenosis E wave1.10m/sMV Mean GR.mmHg A wave1.20m/sMV Peak GR.mmHg E/A ratio0.92D MVAcm2 Aortic Valve Aortic ValveAortic Stenosis V11.20m/Marco Mean GR.6mmHg V21.50m/Marco Peak GR.10mmHg LVOT Diameter2.1 (1.8-2.4cm)Doppler AVA2.77cm2 Pulmonic Valve V20.70m/s Tricuspid Valve TR Velocity3.20m/s [id number] LEFT VENTRICLE The left ventricle is of normal size. Wall thickness is normal. Left ventricular systolic function is hyperdynamic with estimated ejection fraction of 70-75%. There is no regional wall motion abnorma lities. There is grade II diastolic dysfunction. E to E prime ratio is elevated suggestive of high left-sided filling pressure. RIGHT VENTRICLE The right ventricle is of normal size. Systolic function is normal. ATRIA The left atrium is mildly dilated in size. Right atrium is of normal size. Intra-atrial septum is n ot well visualized. MITRAL VALVE There is mild mitral annular calcification. There is mild regurgitation. No significant stenosis. PULMONIC VALVE Likely normal. TRICUSPID VALVE Normal structure and function. There is mild tricuspid regurgitation. PA systolic pressure is estim ated at 45-50 mm Hg. AORTIC VALVE Normal structure and function. GREAT VESSELS The aortic root is of normal size. Ascending aorta isn't visualized. PERICARDIAL EFFUSION No significant pericardial effusion. IVC is of normal size and collapses normally with inspiration. Conclusion Normal left ventricular size with hyperdynamic systolic function. Ejection fraction is estimated at 70-75%. Grade II diastolic dysfunction. Normal right ventricular size and systolic function. No hemodynamically significant valvular disease. PA systolic pressure is estimated at 45-50 mm Hg. No significant pericardial effusion.
--- NOTE | 2024-04-29 10:50 | DVHINCON2 ---
Date Seen: Apr 29, 2024 Referring Physician MD Page Reason for Consultation Cardiac risk stratification History of Present Illness This is a 89-year-old female patient who presents to the emergency room status post mechanical fall. The patient reports that she was lying in bed and when she went to get out of bed, she fell. She reports being tangled within her blankets. She reports she called out for her son who then came to help her. She reports right leg pain. EMS was called and the patient was brought to the emergency room for further evaluation. Imaging has revealed an acute comminuted intertrochanteric right femoral neck fracture. Cardiology has now been consulted for cardiac risk stratification pending surgical intervention. Initial twelve lead electrocardiogram reveals normal sinus rhythm without any significant ST segment changes. Spoke with patient's son/caregiver Matias who was able to provide past medical history. 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 Past Medical History Past medical history reviewed. No other significant than mentioned above. Past Surgical History Denies Family History: Diabetes mellitus 19 CHILD FHx: cancer Family History Family history reviewed. Social History Denies the use of tobacco, alcohol or illicit drugs. Allergies: Coded Allergies: NO KNOWN ALLERGIES (Unverified , 09/07/21) Home Meds Active Scripts Ferrous Sulfate (Iron) 325 Mg Tab, 325 MG PO BID, #180 TAB Prov:LULU LOPEZ MD 03/28/24 Albuterol Sulfate (VENTOLIN MDI) 90 Mcg Ih, 90 MCG IN QID, #1 INH Prov:LULU LOPEZ MD 03/28/24 Methylprednisolone (Medrol Dosepak) 4 Mg [place], 4 MG PO DAILY, #21 TAB UAD Prov:LULU LOPEZ MD 03/28/24 Levofloxacin Hemihydrate (LEVAQUIN 500 MG) 500 Mg Tab, 1 TAB PO DAILY, #7 TAB Prov:LULU LOPEZ MD 03/28/24 Reported Medications Losartan Potassium (Losartan Potassium) 25 Mg Tab, PO 03/23/24 Albuterol Sulfate (Albuterol Sulfate Hfa) 108 Mcg/Act Aer, 1 INH Q4HPRN PRN 03/23/24 Famotidine (PEPCID TABLET) 20 Mg Tb, 1 TAB PO DAILY 03/23/24 Insulin Glargine (Basaglar Kwikpen) 100 Unit/Ml Inj, 10 UNITS SC DAILY 03/23/24 Metoprolol Tartrate (Lopressor) 25 Mg Tb, 1 TAB PO DAILY 03/23/24 Metformin Hydrochloride (Metformin Hcl) 500 Mg Tab, 1 TAB PO BID 03/23/24 Empagliflozin (Jardiance) 25 Mg Tab, 1 TAB PO DAILY 03/23/24 Memantine Hydrochloride (Memantine HCl) 10 Mg Tab, 1 TAB PO BID 03/23/24 Discontinued Reported Medications Pravastatin Sodium (PRAVACHOL TABLET) 20 Mg Tb, 2 TAB PO QPM, #90 TAB 1 Refill 03/23/24 Aspirin (Aspirin Low Dose) 81 Mg Tab, 1 TAB PO DAILY 03/23/24 Home Meds Home medications reviewed. Current Medications Current Medications Medications (Trade) Dose Ordered Sig/Bradley Route PRN Reason Start Time Stop Time Status Last Admin Vancomycin HCl 100 ml @ 100 mls/hr Q24H IV 04/28/24 19:00 04/28/24 17:30 DC Review of Systems Constitutional: No symptom reported Ears, Nose, & Throat: No symptom reported Eyes: No symptom reported Neurological: No symptoms reported Pulmonary/Respiratory: No symptoms reported Cardiovascular: No symptom reported Gastrointestinal: No symptom reported Genitourinary: No symptom reported Musculoskeletal: Right leg pain Skin: No symptom reported Psychiatric: No symptom reported Endocrine: No symptom reported Hematologic/Lymphatic: No symptom reported Vital Signs Vital Signs Date Time Temp Pulse Resp B/P (MAP) Pulse Ox O2 Delivery O2 Flow Rate FiO2 04/29/24 09:00 97.6 76 16 149/57 (87) 98 97.6 04/28/24 22:05 Nasal Cannula 3.0 04/28/24 22:05 32 Physical Exam General Appearance: Cooperative. Well-developed. Well-nourished. No acute distress. Pulmonary/Respiratory: Clear, bilateral breaths sounds. Cardiovascular/Chest: Regular rate and rhythm. Peripheral Pulses: 2+ Radial (R). 2+ Radial (L). 2+ Pedal (R). 2+ Pedal (L) Abdominal Exam: Normal bowel sounds. Ankle Exam: Negative ankle edema Lower extremities: Negative lower extremity edema Neuro/Mental Status: A/OX4, coherent. Thoughts/Psych: Normal thought pattern. Appropriate mood and affect. Good judgment and insight. Appearance: No acute distress. Skin Exam: Normal inspection. Normal color. Warm and dry. Labs/Diagnostic Data Labs Test 04/28/24 23:26 04/28/24 05:50 04/28/24 05:39 04/27/24 11:38 Range/Units POC Glucose 132 H 70-106 mg/dl Urine Color Light-yellow Yellow Urine Clarity Clear Clear Urine pH 6.5 5.0-9.0 Urine Specific [place] 1.031 1.001-1.035 Urine Protein Negative Negative Urine Ketones Trace Negative Urine Blood Negative Negative /uL Urine Nitrite Negative Negative Urine Bilirubin Negative Negative Urine Urobilinogen Normal Negative mg/dL Urine Leukocyte Esterase Negative Negative /uL Urine RBC 1 0 - 4 /hpf Urine Microscopic WBC 3 0-5 /HPF Urine Squamous Epithelial Cells None seen <5 /hpf Urine Bacteria Few H None Seen /hpf Urine Glucose 4+ H Normal mg/dL White Blood Count 7.2 # 4.4-10.8 10^3/uL Red Blood Count 3.10 L 4.0-5.20 10^6/uL Hemoglobin 9.4 L 12.2-16.2 g/dL Hematocrit 29.6 #L 36.0-46.0 % Mean Corpuscular Volume 95.4 80.0-100.0 fL Mean Corpuscular Hemoglobin 30.2 28.0-32.0 pg Mean Corpuscular Hemoglobin Concent 31.6 L 32.0-36.0 g/dL Red Cell Distribution Width 17.3 H 11.8-14.3 % Platelet Count 278 140-450 10^3/uL Mean Platelet Volume 6.9 6.9-10.8 fL Neutrophils (%) (Auto) 66.3 37.0-80.0 % Lymphocytes (%) (Auto) 17.9 10.0-50.0 % Monocytes (%) (Auto) 14.7 H 0.0-12.0 % Eosinophils (%) (Auto) 0.4 0.0-7.0 % Basophils (%) (Auto) 0.7 0.0-2.0 % Neutrophils # (Auto) 4.7 1.6-8.6 10 ^3/uL Lymphocytes # (Auto) 1.3 0.4-5.4 10 ^3/uL Monocytes # (Auto) 1.1 0-1.3 10 ^3/uL Eosinophils # (Auto) 0 0-0.8 10 ^3/uL Basophils # (Auto) 0 0-0.2 10 ^3/uL Nucleated Red Blood Cells 0.1 % Sodium Level 146 H 136-145 mmol/L Potassium Level 3.7 3.5-5.1 mmol/L Chloride Level 112 H 98-107 mmol/L Carbon Dioxide Level 25 20-31 mmol/L Anion Gap 9 5-15 Blood Urea Nitrogen 12 9-23 mg/dL Creatinine 0.67 0.550-1.02 mg/dL Glomerular Filtration Rate Calc 85 >90 mL/min BUN/Creatinine Ratio 17.9 10.0-20.0 Serum Glucose 112 H 74-106 mg/dL Calcium Level 8.5 L 8.7-10.4 mg/dL Total Bilirubin 0.5 0.2-1.0 mg/dL Aspartate Amino Transferase (AST) 16 13-40 U/L Alanine Aminotransferase (ALT) 11 7-40 U/L Alkaline Phosphatase 44 L 46-116 U/L Total Protein 6.0 5.7-8.2 g/dL Albumin 4.0 3.2-4.8 g/dL Prothrombin Time 11.0 9.3-11.8 sec Prothrombin Time INR 1.04 0.9-1.15 Activated Partial Thromboplast Time 22.9 L 24.5-34.5 SEC Hemoglobin A1c 6.2 H <5.7 % A1C Assessment Preprocedural cardiovascular examination Acute comminuted intertrochanteric right femoral neck fracture Hypertension Dyslipidemia COPD with home oxygen dependence Asthma Dementia Plan/Recommendation We will continue with the following plan/recommendations (Dr. Pope): Transthoracic echocardiogram reveals LVEF 70-75%, RVSP 45-50mmHg. Chest x-ray obtained on this admission reveals small left pleural effusion. Revised cardiac risk index (James criteria): 1 point (6.0%, risk of major cardiac event). The p atient has no underlying history of coronary artery disease or equivalent of cardiac symptoms. Prior to admission, the patient reports a good functional capacity. Per Cardiology standpoint, the patient is at an acceptable risk for moderate risk surgery. There is no additional cardiac workup indicated prior to surgery. Thank you for allowing us to care for this patient. Please call with any questions or concerns. Critical Care time spent: 40 minutes This medical document was created using an electronic medical record system with voice recognition software and computerized dictation system. Although this document has been carefully reviewed, there might still be some phonetic and typographical errors. Occasional wrong-word or ``sound-alike substitutions may have occurred due to the inherent limitations of voice recognition software. These areas are purely typographical due to imperfections of the software programs and do not reflect any compromise in the patient's medical care. Please read the chart carefully and recognize, using context, where these substitutions have occurred. Plan discussed with: Patient, Son NYHA Physical activity limitations: NA Date of Service: Apr 29, 2024 Billing Provider: YUMI POPE MD Cardiology Common Codes: [id number] INP/OBS CARE (High) Cardiology Consultation Codes: [id number] CONSULT <45MIN DAGOBERTO HERNANDEZ Apr 29, 2024 10:50
--- NOTE | 2024-04-29 14:00 | DVHPN2 ---
Subjective Patient continues to report having right hip pain Reviewed: Care Plan, H&P, Labs, Medications, Previous Orders Changes from previous H/P or p: No Changes General: Per HPI Eyes: No Pain, No Vision change, No Conjunctivae inflammation, No Eyelid inflammation, No Other, No Redness ENT: No Ear pain, No Ear discharge, No Nose pain, No Nose discharge, No Nose congestion, No Mouth pain, No Mouth swelling, No Throat pain, No Throat swelling, No Other Cardiovascular: No Chest Pain, No Palpitations, No Orthopnea, No Paroxysmal Noc. Dyspnea, No Edema, No Lt Headedness, No Other Respiratory: No Cough, No Dry, No Shortness of breath, No SOB with excertion, No Wheezing, No Hemoptysis, No Pleuritic Pain, No Sputum, No Other Gastrointestinal: No Nausea, No Vomiting, No Abdominal Pain, No Diarrhea, No Constipation, No Melena, No Hematochezia, No Other Genitourinary: No Dysuria, No Frequency, No Incontinence, No Hematuria, No Retention, No Other Musculoskeletal: other (Right hip pain); No neck pain, No shoulder pain, No arm pain, No back pain, No hand pain, No leg pain, No foot pain Skin: No Rash, No Lesions, No Jaundice, No Bruising, No Other Objective Vitals Vital Signs Date Time Temp Pulse Resp B/P (MAP) Pulse Ox O2 Delivery O2 Flow Rate FiO2 04/29/24 13:00 97.9 81 20 126/49 (74) 98 97.9 04/29/24 12:12 Nasal Cannula* 2 28 Intake/Output Intake and Output 04/29/24 07:00 Intake Total 900 ml Output Total 2500 ml Balance -1600 ml Intake Oral 320 ml IV Total 580 ml Output Urine Total 2500 ml General Appearance: Alert, Oriented X3, Cooperative, mild distress HEENT: Atraumatic, PERRLA Lungs: Clear to auscultation, Normal air movement Cardiovascular: Normal S1, Normal S2 Abdomen: Normal bowel sounds, Soft, No tenderness, No hepatospenomegaly, No masses Back: Flank Tenderness, Midline Tenderness Musculoskeletal: Normal sensory function, Normal motor function Extremities: Other (Right lower extremity deformed) Neuro: Normal speech Psych/Mental Status: Mental status NL, Mood NL Medications Current Medications Medications Dose Ordered Sig/Bradley Route Start Time Stop Time Status Last Admin Dose Admin Piperacillin Sod/ Tazobactam Sod 100 ml @ 25 mls/hr Q8HR IV 04/27/24 22:00 04/29/24 05:55 25 MLS/HR Sodium Chloride 1,000 ml @ 70 mls/hr [id number] IV 04/27/24 12:15 04/28/24 03:43 70 MLS/HR Acetaminophen/ Hydrocodone Bitart 1 tab Q4HP PRN PO 04/27/24 12:15 04/29/24 10:21 1 TAB Ondansetron HCl 4 mg Q4HP PRN IV 04/27/24 12:15 Acetaminophen 650 mg Q6HP PRN PO 04/27/24 12:15 04/28/24 03:38 650 MG Diagnostic Test (Pha) 1 strip Q6HR 04/27/24 18:00 04/29/24 13:22 1 STRIP Insulin Human Regular Q6HR SC 04/27/24 18:00 04/29/24 13:23 2 UNITS Dextrose 50 ml UD PRN IV 04/27/24 12:15 Pantoprazole Sodium 40 mg DAILY IV 04/28/24 10:00 04/29/24 10:21 40 MG Albuterol 2.5 mg Q4HPRN PRN NEB 04/27/24 12:45 Ipratropium [place] 0.5 mg Q4HPRN PRN NEB 04/27/24 12:45 Losartan Potassium 25 mg DAILY PO 04/28/24 10:00 04/29/24 10:22 25 MG Metoprolol Tartrate 25 mg DAILY PO 04/28/24 10:00 04/29/24 10:22 25 MG Pravastatin Sodium 40 mg QPM PO 04/27/24 18:00 04/28/24 17:50 40 MG Ferrous Sulfate 325 mg BID PO 04/27/24 22:00 04/29/24 10:21 325 MG Memantine 10 mg BID PO 04/27/24 22:00 04/29/24 10:21 10 MG Laboratory Results Laboratory Tests 04/28/24 05:39 Urinalysis Test 04/28/24 05:50 Urine Color Light-yellow (Yellow) Urine Clarity Clear (Clear) Urine pH 6.5 (5.0-9.0) Urine Specific [place] 1.031 (1.001-1.035) Urine Protein Negative (Negative) Urine Ketones Trace (Negative) Urine Blood Negative /uL (Negative) Urine Nitrite Negative (Negative) Urine Bilirubin Negative (Negative) Urine Urobilinogen Normal mg/dL (Negative) Urine Leukocyte Esterase Negative /uL (Negative) Urine RBC 1 /hpf (0 - 4) Urine Microscopic WBC 3 /HPF (0-5) Urine Squamous Epithelial Cells None seen /hpf (<5) Urine Bacteria Few /hpf (None Seen) H Urine Glucose 4+ mg/dL (Normal) H Labs and/or images reviewed: Labs reviewed by me, Image(s) reviewed by me Assessment/Plan Assessment/Plan Impression: -right hip fracture -dementia -primary hypertension -dyslipidemia -pleural effusion -leukocytosis, probable sirs -asthma -hyponatremia Plan: Events: Patient cleared by Cardiology for right hip ORIF. From medical standpoint patient's comorbidities including hypertension, dyslipidemia, dementia, and asthma are well-controlled as stable for surgery. -plans for surgery tomorrow -echocardiogram: Reviewed, unremarkable -continue Zosyn -change IV fluids to 0.45 normal saline -antihypertensives -pain management -PUD, DVT prophylaxis -repeat chest x-ray -NPO after midnight Total time spent with patient discussing and formulating plan of care: 35 minutes. This medical document was created using an electronic medical record system with [employer] computerized dictation system. Although this document has been carefully reviewed, there may still be some phonetic and typographical errors. These areas are purely typographical due to imperfections of the software programs, and do not reflect any compromise in the patient's medical care. Plan discussed with: Patient, Other (RN) My Orders Orders - JOSEPH FRANCIS NP Procedure Category Date Status Time Hepatitis B Surface LAB 04/28/24 In Process Antigen 14:38 Hepatitis C Antibody LAB 04/28/24 In Process 14:38 * Cnc Maintenance Technician CONS 04/28/24 Transmitted Consult Echo 2d Mode Cardiac US 04/28/24 Resulted DOP 17:18 Date of Service: Apr 29, 2024 Billing Provider: JOSEPH FRANCIS NP Common Visit Codes: [id number] CARE 30-74 MIN JOSEPH FRANCIS NP Apr 29, 2024 14:00
[2024-04-29] MEDS: SOD CHL 0.45% 1,000 ML IV SCH (15:09)
--- NOTE | 2024-04-29 16:51 | DVH ---
CHEST RADIOGRAPH Indication: hypoxia, pleural effusion Technique: Single frontal view of the chest was obtained Comparison: XY CHEST PORTABLE on DOS: 04/27/24, XY CHEST XRAY 1 VIEW on DOS: 03/26/24, XY CHEST XRAY 1 VIEW on DOS: 03/23/24 FINDINGS: Lines and Tubes: None Lungs: Diffuse interstitial prominence with bilateral perihilar fullness.. Obscuration of the left he midiaphragm. Pleura: No effusion. No pneumothorax. Cardiomediastinal contours: Heart size is within normal limits with moderate atherosclerotic calcific ation and uncoiling of the aorta. Bones: No acute osseous abnormality. IMPRESSION: Diffuse interstitial prominence with perihilar fullness which may be from pulmonary edema with small left-sided pleural.
[2024-04-30] VITALS (14 sets, daily range): BP systolic 125–139; BP diastolic 50–74; PULSE 79–104; RESP 15–18; TEMP 97.5–99.6; O2SAT 94–100
[2024-04-30] MEDS ORDERED: ePHEDrine SULFATE 50 MG/ML AMP IV PRN (07:15)
[2024-04-30] MEDS: ONDANSETRON HCL 4 MG/2 ML VIAL IV ONE (07:15)
[2024-04-30] MEDS ORDERED: ePHEDrine SULFATE 50 MG/ML AMP ONE (07:28)
[2024-04-30] MEDS ORDERED: PHENYLEPHRINE HCL 10 MG/ML VL ONE (07:28)
[2024-04-30] MEDS ORDERED: MIDAZOLAM HCL 2MG/2ML 2ml VIAL (1mg/ml) ONE (07:29)
[2024-04-30] MEDS ORDERED: PROPOFOL 10 MG/ML 20 ML IV ONE (07:29)
[2024-04-30] MEDS ORDERED: KETAMINE 50mg/ML 1ml syringe ONE (07:29)
[2024-04-30] MEDS ORDERED: ONDANSETRON HCL 4 MG/2 ML VIAL ONE (07:29)
[2024-04-30] MEDS ORDERED: SODIUM CHLORIDE LOCK 10 ML ONE (07:42)
--- NOTE | 2024-04-30 09:02 | DVHOP2 ---
Operative Report - 2 Report Details Date: 04/30/24 Preop Diagnosis: RIght femur intertrochanteric fracture Postop Diagnosis: same Surgeon: Gavin Tong MD District Sales Representative: none Anesthesiologist: Dr Pang Anesthesia: Regional Drains: none Implant: orthofix IM IT aristeo, with two proximal screws and one distal static screw, 125 deg aristeo, short Consent: The patient was informed of the risks and benefits of the procedure. These include but are not limited to complications of anesthesia, postoperative infection, incomplete relief of symptoms, recurrence of symptoms, damage to blood vessels, nerves and tendons, deep venous thrombosis, pulmonary embolism and possible need for repeat surgery in the future. Complications: none Estimated Blood Loss: 50 cc Fluids: 1 L crystalloid Findings: Right hip intertrochanteric fracture Indications for Surgery: unstable fracture of proxiaml femur with requisite bedrest without fixation and co-morbities associated with prolonged bedrest Name of Procedure Performed Right hip intertrochanteric fracture open reduction internal fixation Procedure Details Procedure Details: Patient brought in the operating room given spinal anesthetic without complication Dr. Joyce Traore placed on the fracture table well-padded perineal post seatbelt across chest and pelvis right leg placed into traction with well- padded foot and ankle left leg well left leg well leg roy well-padded reduction of fracture with traction adduction slight flexion slight internal rotation anatomic alignment of fracture seen on AP and lateral fluoro views sterile prep and drape of right hip and lower extremity time-out performed comprehension right-sided correct site ORIF right intertroch fracture correct procedure after review of operative consent history and physical my initial on right buttock all present operating room agreeing right side correct site ORIF right hip intertroch fracture correct procedure 2 cm incision made 4 cm proximal to tip of greater troch sharp dissection through skin down to deep fascia deep fascia divided blunt dissection down to tip of greater troch guide pin placed from tip of greater troch into the proximal intramedullary canal good placement of guide pin confirmed by AP and lateral fluoro views reaming used to perform our to create entry for IM aristeo ortho fixed short 125 degree inner troch aristeo then placed down canal guide pin placed for inferior larger neck screw and does good placement of pin confirmed AP and lateral views reaming for pin pin seemed to be are measured to be 90 mm screw distal screw placed then proximal screw placed same technique placement of guide pin current comprehension good placement of guide pin and length of guide pin and then proximal screw placed again C-arm fluoro taken showing good overall length and position of proximal screw then distal interlock screw placed using distal interlock guide measured to be 30 mm C-arm fluoro taken AP and lateral showing good placement of distal interlock screw insertion guide was then removed and irrigation performed on incision sites and closure deep fascia CR simple interrupted 0 Vicryl subcutaneous 2-0 Vicryl skin janis fluffs ABD paper tape no drains specimens complications. Specimen: none Condition Stable Disposition Still a Patient GAVIN TONG MD Apr 30, 2024 09:02
[2024-04-30] MEDS ORDERED: NITROGLYCERIN 0.4 MG SL TAB SL PRN (09:15)
[2024-04-30] MEDS: LACTATED RINGER'S 1,000 ML IV SCH (09:15)
[2024-04-30] MEDS: IPRATROPIUM BROM 0.5 MG/2.5ML INH SOL NEB PRN (09:26)
[2024-04-30] MEDS: ALBUTEROL SULF 2.5 MG/0.5ML(0.5%) NEB SOLN NEB PRN (09:26)
--- NOTE | 2024-04-30 09:26 | DVH ---
C-ARM FLUOROSCOPY: PROCEDURE: ORIF right hip FLUOROSCOPY TIME: 38.2 sec DAP: 5.19 mgy FINDINGS: Spot intraoperative C arm radiographs demonstrating ORIF right hip. IMPRESSION: Please refer to surgical report for detailed findings.
[2024-04-30] MEDS: DOCUSATE SOD 100 MG CAP PO SCH (10:00)
[2024-04-30 10:52] LABS: Anion Gap 9 (5-15); Carbon Dioxide 27 mmol/L (20-31); Chloride 106 mmol/L (98-107); Potassium 3.9 mmol/L (3.5-5.1); Sodium 142 mmol/L (136-145)
[2024-04-30 10:53] LABS: Calcium 8.7 mg/dL (8.7-10.4)
[2024-04-30 10:58] LABS: BUN/Creatinine Ratio 16.4 (10.0-20.0); Blood Urea Nitrogen 9 mg/dL (9-23)
[2024-04-30 11:13] LABS: Glucose 130 mg/dL (74-106)
--- NOTE | 2024-04-30 11:23 | DVHPN2 ---
Reviewed: Care Plan, H&P, Labs, Medications, Previous Orders Changes from previous H/P or p: No Changes General: Per HPI Eyes: No Pain, No Vision change, No Conjunctivae inflammation, No Eyelid inflammation, No Other, No Redness ENT: No Ear pain, No Ear discharge, No Nose pain, No Nose discharge, No Nose congestion, No Mouth pain, No Mouth swelling, No Throat pain, No Throat swelling, No Other Cardiovascular: No Chest Pain, No Palpitations, No Orthopnea, No Paroxysmal Noc. Dyspnea, No Edema, No Lt Headedness, No Other Respiratory: No Cough, No Dry, No Shortness of breath, No SOB with excertion, No Wheezing, No Hemoptysis, No Pleuritic Pain, No Sputum, No Other Gastrointestinal: No Nausea, No Vomiting, No Abdominal Pain, No Diarrhea, No Constipation, No Melena, No Hematochezia, No Other Genitourinary: No Dysuria, No Frequency, No Incontinence, No Hematuria, No Retention, No Other Musculoskeletal: other (Right hip pain); No neck pain, No shoulder pain, No arm pain, No back pain, No hand pain, No leg pain, No foot pain Skin: No Rash, No Lesions, No Jaundice, No Bruising, No Other Objective Vitals Vital Signs Date Time Temp Pulse Resp B/P (MAP) Pulse Ox O2 Delivery O2 Flow Rate FiO2 04/30/24 10:01 83 137/50 04/30/24 09:37 18 100 04/30/24 09:34 Nasal Cannula 2.0 04/30/24 09:34 28 04/30/24 08:44 97.4 97.4 Intake/Output Intake and Output 04/30/24 07:00 Intake Total 1905 ml Output Total 1800 ml Balance 105 ml Intake Oral 980 ml IV Total 925 ml Output Urine Total 1800 ml General Appearance: Alert, Oriented X3, Cooperative, mild distress HEENT: Atraumatic, PERRLA Lungs: Clear to auscultation, Normal air movement Cardiovascular: Normal S1, Normal S2 Abdomen: Normal bowel sounds, Soft, No tenderness, No hepatospenomegaly, No masses Back: Flank Tenderness, Midline Tenderness Musculoskeletal: Normal sensory function, Normal motor function Extremities: Other (Right lower extremity deformed) Neuro: Normal speech Psych/Mental Status: Mental status NL, Mood NL Medications Current Medications Medications Dose Ordered Sig/Bradley Route Start Time Stop Time Status Last Admin Dose Admin Piperacillin Sod/ Tazobactam Sod 100 ml @ 25 mls/hr Q8HR IV 04/27/24 22:00 04/30/24 05:47 25 MLS/HR Acetaminophen/ Hydrocodone Bitart 1 tab Q4HP PRN PO 04/27/24 12:15 04/30/24 10:11 1 TAB Ondansetron HCl 4 mg Q4HP PRN IV 04/27/24 12:15 Acetaminophen 650 mg Q6HP PRN PO 04/27/24 12:15 04/28/24 03:38 650 MG Diagnostic Test (Pha) 1 strip Q6HR 04/27/24 18:00 04/30/24 05:47 1 STRIP Insulin Human Regular Q6HR SC 04/27/24 18:00 04/29/24 23:56 2 UNITS Dextrose 50 ml UD PRN IV 04/27/24 12:15 Pantoprazole Sodium 40 mg DAILY IV 04/28/24 10:00 04/30/24 10:00 40 MG Albuterol 2.5 mg Q4HPRN PRN NEB 04/27/24 12:45 04/30/24 09:26 2.5 MG Ipratropium [place] 0.5 mg Q4HPRN PRN NEB 04/27/24 12:45 04/30/24 09:26 0.5 MG Losartan Potassium 25 mg DAILY PO 04/28/24 10:00 04/30/24 10:01 25 MG Metoprolol Tartrate 25 mg DAILY PO 04/28/24 10:00 04/30/24 10:01 25 MG Pravastatin Sodium 40 mg QPM PO 04/27/24 18:00 04/29/24 17:23 40 MG Ferrous Sulfate 325 mg BID PO 04/27/24 22:00 04/30/24 10:01 325 MG Memantine 10 mg BID PO 04/27/24 22:00 04/30/24 10:01 10 MG Sodium Chloride 1,000 ml @ 50 mls/hr Q20H IV 04/29/24 14:00 04/29/24 15:09 50 MLS/HR Lactated Ringer's 1,000 ml @ 100 mls/hr Q10H IV 04/30/24 09:15 Cefazolin Sodium 50 ml @ 50 mls/hr Q6H IV 04/30/24 09:15 04/30/24 22:14 Docusate Sodium 100 mg Q12HR PO 04/30/24 10:00 04/30/24 10:00 100 MG Enoxaparin Sodium 40 mg DAILY SC 04/30/24 10:00 Nitroglycerin 0.4 mg Q5MINP PRN SL 04/30/24 09:15 Laboratory Results Laboratory Tests 04/28/24 05:39 04/30/24 09:50 Chemistry Test 04/30/24 09:50 Calcium Level 8.7 mg/dL (8.7-10.4) Urinalysis Test 04/28/24 05:50 Urine Color Light-yellow (Yellow) Urine Clarity Clear (Clear) Urine pH 6.5 (5.0-9.0) Urine Specific [place] 1.031 (1.001-1.035) Urine Protein Negative (Negative) Urine Ketones Trace (Negative) Urine Blood Negative /uL (Negative) Urine Nitrite Negative (Negative) Urine Bilirubin Negative (Negative) Urine Urobilinogen Normal mg/dL (Negative) Urine Leukocyte Esterase Negative /uL (Negative) Urine RBC 1 /hpf (0 - 4) Urine Microscopic WBC 3 /HPF (0-5) Urine Squamous Epithelial Cells None seen /hpf (<5) Urine Bacteria Few /hpf (None Seen) H Urine Glucose 4+ mg/dL (Normal) H Labs and/or images reviewed: Labs reviewed by me, Image(s) reviewed by me Assessment/Plan Assessment/Plan Right hip intertrochanteric fracture status post open reduction internal fixation by Dr Smith on 04/29/2024 Hypertension Dementia Hypercholesterolemia Mild elevated WBC count Asthma Hyponatremia Physical therapy ordered Plan discussed with: Patient Date of Service: Apr 30, 2024 Billing Provider: LULU LOPEZ MD Common Visit Codes: [id number] INP/OBS CARE(HIGH) LULU LOPEZ MD Apr 30, 2024 11:23
[2024-04-30] MEDS: ENOXAPARIN SOD 40 MG/0.4 ML SYRINGE SC SCH (11:42)
[2024-04-30] MEDS: ceFAZolin 1GM/50ML 50 ML IV SCH (11:42)
[2024-05-01] VITALS (11 sets, daily range): BP systolic 101–142; BP diastolic 43–50; PULSE 68–106; RESP 16–20; TEMP 97.5–99.8; O2SAT 95–98
[2024-05-01 07:22] LABS: Basophils # (auto) 0 10 ^3/uL (0-0.2); Basophils % (auto) 0.5 % (0.0-2.0); Eosinophils # (auto) 0 10 ^3/uL (0-0.8); Eosinophils % (auto) 0.6 % (0.0-7.0); Hematocrit 24.4 % (36.0-46.0); Hemoglobin 8.1 g/dL (12.2-16.2); Lymphocytes % (auto) 11.9 % (10.0-50.0); Mean Corpuscular Hemoglobin 31.1 pg (28.0-32.0); Mean Corpuscular Hgb Conc. 33.2 g/dL (32.0-36.0); Mean Corpuscular Volume 93.7 fL (80.0-100.0); Monocytes # (auto) 1.2 10 ^3/uL (0-1.3); Monocytes % (auto) 15.1 % (0.0-12.0); Neutrophils # (auto) 5.8 10 ^3/uL (1.6-8.6); Neutrophils % (auto) 71.9 % (37.0-80.0); Platelet Count (auto) 230 10^3/uL (140-450); Red Cell Distribution Width 16.2 % (11.8-14.3); White Blood Cell 8.1 10^3/uL (4.4-10.8)
--- NOTE | 2024-05-01 12:10 | DVHPN2 ---
Reviewed: Care Plan, H&P, Labs, Medications, Previous Orders Changes from previous H/P or p: No Changes General: Per HPI Eyes: No Pain, No Vision change, No Conjunctivae inflammation, No Eyelid inflammation, No Other, No Redness ENT: No Ear pain, No Ear discharge, No Nose pain, No Nose discharge, No Nose congestion, No Mouth pain, No Mouth swelling, No Throat pain, No Throat swelling, No Other Cardiovascular: No Chest Pain, No Palpitations, No Orthopnea, No Paroxysmal Noc. Dyspnea, No Edema, No Lt Headedness, No Other Respiratory: No Cough, No Dry, No Shortness of breath, No SOB with excertion, No Wheezing, No Hemoptysis, No Pleuritic Pain, No Sputum, No Other Gastrointestinal: No Nausea, No Vomiting, No Abdominal Pain, No Diarrhea, No Constipation, No Melena, No Hematochezia, No Other Genitourinary: No Dysuria, No Frequency, No Incontinence, No Hematuria, No Retention, No Other Musculoskeletal: other (Right hip pain); No neck pain, No shoulder pain, No arm pain, No back pain, No hand pain, No leg pain, No foot pain Skin: No Rash, No Lesions, No Jaundice, No Bruising, No Other Objective Vitals Vital Signs Date Time Temp Pulse Resp B/P (MAP) Pulse Ox O2 Delivery O2 Flow Rate FiO2 05/01/24 10:46 68 101/45 05/01/24 10:14 96 Nasal Cannula* 2 28 05/01/24 08:44 97.9 19 97.9 Intake/Output Intake and Output 05/01/24 07:00 Intake Total 2090 ml Output Total 1500 ml Balance 590 ml Intake Oral 890 ml IV Total 1200 ml Output Urine Total 1500 ml General Appearance: Alert, Oriented X3, Cooperative, mild distress HEENT: Atraumatic, PERRLA Lungs: Clear to auscultation, Normal air movement Cardiovascular: Normal S1, Normal S2 Abdomen: Normal bowel sounds, Soft, No tenderness, No hepatospenomegaly, No masses Back: Flank Tenderness, Midline Tenderness Musculoskeletal: Normal sensory function, Normal motor function Extremities: Other (Right lower extremity deformed) Neuro: Normal speech Psych/Mental Status: Mental status NL, Mood NL Medications Current Medications Medications Dose Ordered Sig/Bradley Route Start Time Stop Time Status Last Admin Dose Admin Piperacillin Sod/ Tazobactam Sod 100 ml @ 25 mls/hr Q8HR IV 04/27/24 22:00 05/01/24 05:34 25 MLS/HR Acetaminophen/ Hydrocodone Bitart 1 tab Q4HP PRN PO 04/27/24 12:15 05/01/24 09:49 1 TAB Ondansetron HCl 4 mg Q4HP PRN IV 04/27/24 12:15 Acetaminophen 650 mg Q6HP PRN PO 04/27/24 12:15 04/28/24 03:38 650 MG Diagnostic Test (Pha) 1 strip Q6HR 04/27/24 18:00 05/01/24 12:03 1 STRIP Insulin Human Regular Q6HR SC 04/27/24 18:00 05/01/24 12:03 4 UNITS Dextrose 50 ml UD PRN IV 04/27/24 12:15 Pantoprazole Sodium 40 mg DAILY IV 04/28/24 10:00 05/01/24 09:48 40 MG Albuterol 2.5 mg Q4HPRN PRN NEB 04/27/24 12:45 04/30/24 09:26 2.5 MG Ipratropium [place] 0.5 mg Q4HPRN PRN NEB 04/27/24 12:45 04/30/24 09:26 0.5 MG Losartan Potassium 25 mg DAILY PO 04/28/24 10:00 05/01/24 09:48 25 MG Metoprolol Tartrate 25 mg DAILY PO 04/28/24 10:00 05/01/24 09:46 25 MG Pravastatin Sodium 40 mg QPM PO 04/27/24 18:00 04/30/24 17:47 40 MG Ferrous Sulfate 325 mg BID PO 04/27/24 22:00 05/01/24 09:47 325 MG Memantine 10 mg BID PO 04/27/24 22:00 05/01/24 09:47 10 MG Sodium Chloride 1,000 ml @ 50 mls/hr Q20H IV 04/29/24 14:00 05/01/24 05:41 50 MLS/HR Lactated Ringer's 1,000 ml @ 100 mls/hr Q10H IV 04/30/24 09:15 Docusate Sodium 100 mg Q12HR PO 04/30/24 10:00 05/01/24 09:46 100 MG Enoxaparin Sodium 40 mg DAILY SC 04/30/24 10:00 05/01/24 09:48 40 MG Nitroglycerin 0.4 mg Q5MINP PRN SL 04/30/24 09:15 Laboratory Results Laboratory Tests 04/30/24 09:50 05/01/24 06:22 Urinalysis Test 04/28/24 05:50 Urine Color Light-yellow (Yellow) Urine Clarity Clear (Clear) Urine pH 6.5 (5.0-9.0) Urine Specific [place] 1.031 (1.001-1.035) Urine Protein Negative (Negative) Urine Ketones Trace (Negative) Urine Blood Negative /uL (Negative) Urine Nitrite Negative (Negative) Urine Bilirubin Negative (Negative) Urine Urobilinogen Normal mg/dL (Negative) Urine Leukocyte Esterase Negative /uL (Negative) Urine RBC 1 /hpf (0 - 4) Urine Microscopic WBC 3 /HPF (0-5) Urine Squamous Epithelial Cells None seen /hpf (<5) Urine Bacteria Few /hpf (None Seen) H Urine Glucose 4+ mg/dL (Normal) H Labs and/or images reviewed: Labs reviewed by me, Image(s) reviewed by me Assessment/Plan Assessment/Plan Right hip intertrochanteric fracture status post open reduction internal fixation by Dr Smith on 04/29/2024 Hypertension Dementia Hypercholesterolemia Mild elevated WBC count Asthma Hyponatremia Physical therapy ordered Plan discussed with: Patient Date of Service: May 01, 2024 Billing Provider: LULU LOPEZ MD Common Visit Codes: [id number] INP/OBS CARE(HIGH) LULU LOPEZ MD May 01, 2024 12:10
[2024-05-02] VITALS (12 sets, daily range): BP systolic 100–150; BP diastolic 45–69; PULSE 72–99; RESP 16–20; TEMP 97.4–98.7; O2SAT 95–99
[2024-05-02 09:03] LABS: Hepatitis B Surface Antigen Negative (Negative)
[2024-05-02 09:23] LABS: Hepatitis C Antibody Negative (Negative)
[2024-05-02 13:15] LABS: Hematocrit 25.5 % (36.0-46.0); Hemoglobin 8.3 g/dL (12.2-16.2)
[2024-05-02] MEDS ORDERED: DEXTROSE (50%) 50ML SYRG IV PRN (14:45)
--- NOTE | 2024-05-02 15:10 | ECG ---
[facility] Test Date: 2024-04-29 Test Time: 06:29:38 Pat Name: SKY HELLER Department: Room: 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
--- NOTE | 2024-05-02 16:22 | DVHPN2 ---
Subjective Patient continues to report having right hip pain Reviewed: Care Plan, H&P, Labs, Medications, Previous Orders Changes from previous H/P or p: No Changes General: Per HPI Eyes: No Pain, No Vision change, No Conjunctivae inflammation, No Eyelid inflammation, No Other, No Redness ENT: No Ear pain, No Ear discharge, No Nose pain, No Nose discharge, No Nose congestion, No Mouth pain, No Mouth swelling, No Throat pain, No Throat swelling, No Other Cardiovascular: No Chest Pain, No Palpitations, No Orthopnea, No Paroxysmal Noc. Dyspnea, No Edema, No Lt Headedness, No Other Respiratory: No Cough, No Dry, No Shortness of breath, No SOB with excertion, No Wheezing, No Hemoptysis, No Pleuritic Pain, No Sputum, No Other Gastrointestinal: No Nausea, No Vomiting, No Abdominal Pain, No Diarrhea, No Constipation, No Melena, No Hematochezia, No Other Genitourinary: No Dysuria, No Frequency, No Incontinence, No Hematuria, No Retention, No Other Musculoskeletal: other (Right hip pain); No neck pain, No shoulder pain, No arm pain, No back pain, No hand pain, No leg pain, No foot pain Skin: No Rash, No Lesions, No Jaundice, No Bruising, No Other Objective Vitals Vital Signs Date Time Temp Pulse Resp B/P (MAP) Pulse Ox O2 Delivery O2 Flow Rate FiO2 05/02/24 13:15 98.1 91 17 122/51 (74) 95 98.1 05/02/24 10:15 Nasal Cannula 2.0 05/02/24 10:15 28 Intake/Output Intake and Output 05/02/24 07:00 Intake Total 900 ml Output Total 2000 ml Balance -1100 ml Intake Oral 700 ml IV Total 200 ml Output Urine Total 1000 ml Stool Total 1000 ml General Appearance: Alert, Oriented X3, Cooperative, mild distress HEENT: Atraumatic, PERRLA Lungs: Clear to auscultation, Normal air movement Cardiovascular: Normal S1, Normal S2 Abdomen: Normal bowel sounds, Soft, No tenderness, No hepatospenomegaly, No masses Back: Flank Tenderness, Midline Tenderness Musculoskeletal: Normal sensory function, Normal motor function Extremities: Other (Right lower extremity deformed) Neuro: Normal speech Skin: Dry, Intact, Other (Surgical dressing dry and intact) Psych/Mental Status: Mental status NL, Mood NL Medications Current Medications Medications Dose Ordered Sig/Bradley Route Start Time Stop Time Status Last Admin Dose Admin Piperacillin Sod/ Tazobactam Sod 100 ml @ 25 mls/hr Q8HR IV 04/27/24 22:00 05/02/24 05:30 25 MLS/HR Acetaminophen/ Hydrocodone Bitart 1 tab Q4HP PRN PO 04/27/24 12:15 05/02/24 10:27 1 TAB Ondansetron HCl 4 mg Q4HP PRN IV 04/27/24 12:15 Acetaminophen 650 mg Q6HP PRN PO 04/27/24 12:15 04/28/24 03:38 650 MG Pantoprazole Sodium 40 mg DAILY IV 04/28/24 10:00 05/02/24 10:11 40 MG Albuterol 2.5 mg Q4HPRN PRN NEB 04/27/24 12:45 04/30/24 09:26 2.5 MG Ipratropium [place] 0.5 mg Q4HPRN PRN NEB 04/27/24 12:45 04/30/24 09:26 0.5 MG Losartan Potassium 25 mg DAILY PO 04/28/24 10:00 05/02/24 10:14 25 MG Metoprolol Tartrate 25 mg DAILY PO 04/28/24 10:00 05/02/24 10:14 25 MG Pravastatin Sodium 40 mg QPM PO 04/27/24 18:00 05/01/24 18:33 40 MG Ferrous Sulfate 325 mg BID PO 04/27/24 22:00 05/02/24 10:14 325 MG Memantine 10 mg BID PO 04/27/24 22:00 05/02/24 10:13 10 MG Docusate Sodium 100 mg Q12HR PO 04/30/24 10:00 05/02/24 10:15 100 MG Enoxaparin Sodium 40 mg DAILY SC 04/30/24 10:00 05/02/24 10:12 40 MG Nitroglycerin 0.4 mg Q5MINP PRN SL 04/30/24 09:15 Diagnostic Test (Pha) 1 strip ACHS 05/02/24 17:00 Insulin Human Regular ACHS SC 05/02/24 17:00 Dextrose 50 ml UD PRN IV 05/02/24 14:45 Laboratory Results Laboratory Tests 04/30/24 09:50 05/01/24 06:22 05/02/24 12:30 Urinalysis Test 04/28/24 05:50 Urine Color Light-yellow (Yellow) Urine Clarity Clear (Clear) Urine pH 6.5 (5.0-9.0) Urine Specific [place] 1.031 (1.001-1.035) Urine Protein Negative (Negative) Urine Ketones Trace (Negative) Urine Blood Negative /uL (Negative) Urine Nitrite Negative (Negative) Urine Bilirubin Negative (Negative) Urine Urobilinogen Normal mg/dL (Negative) Urine Leukocyte Esterase Negative /uL (Negative) Urine RBC 1 /hpf (0 - 4) Urine Microscopic WBC 3 /HPF (0-5) Urine Squamous Epithelial Cells None seen /hpf (<5) Urine Bacteria Few /hpf (None Seen) H Urine Glucose 4+ mg/dL (Normal) H Labs and/or images reviewed: Labs reviewed by me, Image(s) reviewed by me Assessment/Plan Assessment/Plan Impression: -right hip fracture -dementia -primary hypertension -dyslipidemia -pleural effusion -leukocytosis, probable sirs -asthma -hyponatremia Plan: Events: Postop right hip ORIF, day two. Patient has been ambulating minimally with physical therapy. Overall plans include discharged home with PT and home health services as family does not want patient to go to shelter facility. -discontinue IV fluids -pulse dose of Lasix -antihypertensives -pain management -PUD, DVT prophylaxis -repeat chest x-ray -bowel regimen Total time spent with patient discussing and formulating plan of care: 35 minutes. This medical document was created using an electronic medical record system with [employer] dictation system. Although this document has been carefully reviewed, there may still be some phonetic and typographical errors. These areas are purely typographical due to imperfections of the software programs, and do not reflect any compromise in the patient's medical care. Plan discussed with: Patient, Other (RN) My Orders Orders - JOSEPH FRANCIS NP Procedure Category Date Status Time Glucose Blood PHA 05/02/24 In Process (Accu-Chek Comfort 17:00 Insulin R (Human) PHA 05/02/24 In Process (Insulin R) 17:00 Dextrose 50% Syringe PHA 05/02/24 In Process 14:45 Date of Service: May 02, 2024 Billing Provider: JOSEPH FRANCIS NP Common Visit Codes: [id number] INP/OBS CARE(HIGH) JOSEPH FRANCIS NP May 02, 2024 16:22
[2024-05-02] MEDS: ACCU-CHEK COMFORT CURVE STRIP VI SCH (16:24)
[2024-05-02] MEDS: InsuLIN REG 1unit/0.01ml Soln (100units/ml) SC SCH (16:52)
[2024-05-02] MEDS: LACTULOSE 20Gm/30ML SOLN PO ONE (17:40)
[2024-05-03] VITALS (10 sets, daily range): BP systolic 129–153; BP diastolic 41–76; PULSE 86–106; RESP 16–18; TEMP 36.7; O2SAT 97–100
--- NOTE | 2024-05-03 10:33 | DVHDS2 ---
Discharge Summary Date of Admission Apr 27, 2024 at 12:14 Date of Discharge: May 03, 2024 Admitting Diagnosis Right femoral neck fracture Labs/Diagnostic Data: Laboratory Results Test 05/03/24 06:03 05/02/24 12:30 05/01/24 06:22 04/30/24 09:50 POC Glucose 157 mg/dl (70-106) Hemoglobin 8.3 g/dL (12.2-16.2) Hematocrit 25.5 % (36.0-46.0) White Blood Count 8.1 10^3/uL (4.4-10.8) Red Blood Count 2.60 10^6/uL (4.0-5.20) Mean Corpuscular Volume 93.7 fL (80.0-100.0) Mean Corpuscular Hemoglobin 31.1 pg (28.0-32.0) Mean Corpuscular Hemoglobin Concent 33.2 g/dL (32.0-36.0) Red Cell Distribution Width 16.2 % (11.8-14.3) Platelet Count 230 10^3/uL (140-450) Mean Platelet Volume 7.1 fL (6.9-10.8) Neutrophils (%) (Auto) 71.9 % (37.0-80.0) Lymphocytes (%) (Auto) 11.9 % (10.0-50.0) Monocytes (%) (Auto) 15.1 % (0.0-12.0) Eosinophils (%) (Auto) 0.6 % (0.0-7.0) Basophils (%) (Auto) 0.5 % (0.0-2.0) Neutrophils # (Auto) 5.8 10 ^3/uL (1.6-8.6) Lymphocytes # (Auto) 1.0 10 ^3/uL (0.4-5.4) Monocytes # (Auto) 1.2 10 ^3/uL (0-1.3) Eosinophils # (Auto) 0 10 ^3/uL (0-0.8) Basophils # (Auto) 0 10 ^3/uL (0-0.2) Nucleated Red Blood Cells 0.0 % Sodium Level 142 mmol/L (136-145) Potassium Level 3.9 mmol/L (3.5-5.1) Chloride Level 106 mmol/L (98-107) Carbon Dioxide Level 27 mmol/L (20-31) Anion Gap 9 (5-15) Blood Urea Nitrogen 9 mg/dL (9-23) Creatinine 0.55 mg/dL (0.550-1.02) Glomerular Filtration Rate Calc 89 mL/min (>90) BUN/Creatinine Ratio 16.4 (10.0-20.0) Serum Glucose 130 mg/dL (74-106) Calcium Level 8.7 mg/dL (8.7-10.4) Test 04/28/24 05:50 04/28/24 05:39 04/27/24 11:38 Urine Color Light-yellow (Yellow) Urine Clarity Clear (Clear) Urine pH 6.5 (5.0-9.0) Urine Specific [place] 1.031 (1.001-1.035) Urine Protein Negative (Negative) Urine Ketones Trace (Negative) Urine Blood Negative /uL (Negative) Urine Nitrite Negative (Negative) Urine Bilirubin Negative (Negative) Urine Urobilinogen Normal mg/dL (Negative) Urine Leukocyte Esterase Negative /uL (Negative) Urine RBC 1 /hpf (0 - 4) Urine Microscopic WBC 3 /HPF (0-5) Urine Squamous Epithelial Cells None seen /hpf (<5) Urine Bacteria Few /hpf (None Seen) Urine Glucose 4+ mg/dL (Normal) Total Bilirubin 0.5 mg/dL (0.2-1.0) Aspartate Amino Transferase (AST) 16 U/L (13-40) Alanine Aminotransferase (ALT) 11 U/L (7-40) Alkaline Phosphatase 44 U/L (46-116) Total Protein 6.0 g/dL (5.7-8.2) Albumin 4.0 g/dL (3.2-4.8) Hepatitis B Surface Antigen Negative (Negative) Hepatitis C Antibody Negative (Negative) Prothrombin Time 11.0 sec (9.3-11.8) Prothrombin Time INR 1.04 (0.9-1.15) Activated Partial Thromboplast Time 22.9 SEC (24.5-34.5) Hemoglobin A1c 6.2 % A1C (<5.7) Other Laboratory Tests 05/02/24 12:30 05/01/24 06:22 04/30/24 09:50 Brief Hx & Hospital Course: History of Present Illness Arrieta Sharlene Chapman R is an 89-year-old female with past medical history of hypertension, hyperlipidemia, diabetes, asthma, dementia, and recent hospitalization last month for pneumonia who presents to the ED status post mechanical fall today. Patient's son reports that patient was trying to get up out of bed to answer a phone call and fell on her hip. Patient's son reports that she does not use any DME is and she is able to ambulate without any assistance. He also reports that she was recently hospitalized last month for p neumonia. Patient's son states that she used to his 2 L nasal cannula of oxygen at home. He also states that she stopped taking aspirin because she developed significant nasal bleeding and was also instructed by her primary. Patient denies any chest pain, shortness of breath, abdominal pain, nausea, vomiting, diarrhea, urinary symptoms, fever, chills, lightheadedness and dizziness. Course of hospitalization: Orthopedic surgery consultation was obtained. After receiving both medical and cardiology clearance, patient underwent ORIF. Postoperatively the patient has been ambulating, greater than 30 ft with a walker. Patient was respiratory status has been stable with nasal cannula at 2 liters/minute, her baseline O2 supplementation she requires at home. Long discussion was made with the patient who states that she would like to be discharged home instead of being placed in a assisted facility. Patient will be provided home health services, physical therapy, as well as appropriate DME. She will follow up with the discharge Clinic in 1-2 weeks, as well as the orthopedic surgeon in 1-2 weeks. She will be provided a front wheel walker, with the patient's son stating that she does not require a shower chair as they have one, and with her bathroom in close proximity, a bedside commode is not necessary. Physical examination General: Alert and Oriented x3. No acute distress. Well-nourished. Eyes: EOMI. Anicteric. HENT: Moist mucous membranes. Lungs: Clear to auscultation bilaterally. No accessory muscle use. Cardiovascular: Regular rate and rhythm. No murmur. No JVD. Abdomen: Soft, non-tender and non-distended. No palpable masses. Extremities: No edema. Non-tender. Skin: No rashes or lesions. Warm. Right hip dressing dry and intact. Neurologic: No focal neurological deficits. CN II-XII grossly intact, but not individually tested. Psychiatric: Cooperative. Appropriate mood and affect. Total time spent with patient discussing and formulating plan of care: 35 minutes. This medical document was created using an electronic medical record system with [employer] dictation system. Although this document has been carefully reviewed, there may still be some phonetic and typographical errors. These areas are purely typographical due to imperfections of the software programs, and do not reflect any compromise in the patient's medical care. Consults/Reason for consult Orthopedic surgery: Right hip fracture Operations or Procedures 04/30/2024: Right hip ORIF Condition at Discharge: Fair Final Diagnosis/Problems List Right hip fracture, status post ORIF Secondary Diagnosis: -dementia -primary hypertension -dyslipidemia -pleural effusion -leukocytosis, probable sirs -asthma -hyponatremia -acute on chronic hypoxic respiratory failure Discharge Disposition: Home Discharge Instruct/Medications Diet: Consistent carbohydrate, Cardiac 2g Na,low cholest Activity: No Restrictions, As Tolerated Activity comment: Use front wheel walker Follow Up/Referral: Follow up with Orthopedic surgery 1-2 weeks Follow up with discharge Clinic in one week Medications: Continue all previous home medications Tylenol [id number] 500 mg p.o. q.6 hours for mild pain [place] 5/325 q.8 hours as needed for [id number] pain 36 Discharge Statement: "Patient was advised to return to the ER or call 911 if any headaches, dizziness, shortness of breath, chest pain, abdominal pain, bleeding, fevers, or worsening of medical condition. Patient was counseled about treatment plan, medications, possible side effects, patientverbalized understanding. All questions were answered to the best of my ability. This discharge took greater then 30 minutes in planning, reviewing documentation, counseling the patient, and discussing with other team members." DME: Diagnosis: Right hip fracture, status post ORIF ASSESSMENT ASSESSMENT Assessment Right hip fracture, status post ORIF Date of Service: May 03, 2024 Billing Provider: JOSEPH FRANCIS NP Common Visit Codes: [id number] DISCH DAY >30min JOSEPH FRANCIS NP May 03, 2024 10:33
== END 2024-05-03 17:15 | disposition home health service (06) | DRG 308 ==
LOC: ER 10:06 → OVERFLOW 12:14 → WEST WING 04-28 12:19
PROVIDERS: ADMIT Family Medicine; ATTEND Nurse Practitioner Acute Care
PROC: 0QS604Z Reposition Right Upper Femur with Internal Fixation Device, Open Approach (ICD-10-PCS; principal; 2024-04-30 07:40)
DX: S72.141A Displaced intertrochanteric fracture of right femur, initial encounter for closed fracture (principal); J96.21 Acute and chronic respiratory failure with hypoxia; J90 Pleural effusion, not elsewhere classified; R65.10 Systemic inflammatory response syndrome (SIRS) of non-infectious origin without acute organ dysfunction; E87.1 Hypo-osmolality and hyponatremia; F03.90 Unspecified dementia, unspecified severity, without behavioral disturbance, psychotic disturbance, mood disturbance, and anxiety; Z99.81 Dependence on supplemental oxygen; I10 Essential (primary) hypertension; E11.9 Type 2 diabetes mellitus without complications; J45.909 Unspecified asthma, uncomplicated; E78.00 Pure hypercholesterolemia, unspecified; Z83.3 Family history of diabetes mellitus; W18.39XA Other fall on same level, initial encounter; Y93.89 Activity, other specified; Y92.89 Other specified places as the place of occurrence of the external cause; Y99.8 Other external cause status
CPT/HCPCS: 36415; 71045; 73502; 73700; 76000; 80048; 80053; 81001; 82962; 83036; 85014; 85018; 85025; 85610; 85730; 86803; 86850; 86900; 86901; 87340; 93005; 93306; 94640; 96374; 96375; 97110; 97116; 97163; 97530; A4565; G0378; J1815; J2250; J2405; J2470; J2543; J2704